=== PATIENT | female | born 1955 | race Caucasian/White ===

== ENCOUNTER 2018-12-03 15:14 | Inpatient (IN) | payer MEDICAID ==
[~2018-12-03] VITALS: Ht 170.2 cm; Wt 72.3 kg
[~2018-12-03 15:14] MED LIST: ALBU18HF2 IH; LORA10TA7 PO; METF500T PO
[2018-12-03 15:41] LABS: BASOPHILS # (AUTO) 0.1 X10'3 (0-0.2); BASOPHILS % (AUTO) 0.4 % (0-1); EOSINOPHILS # (AUTO) 0.1 X10'3 (0-0.9); EOSINOPHILS % (AUTO) 0.6 % (0-6); HEMATOCRIT 31.6 % (35.0-45.0); HEMOGLOBIN 10.7 g/dl (12.0-16.0); LYMPHOCYTES # (AUTO) 1.8 X10'3 (1.1-4.8); LYMPHOCYTES % (AUTO) 8.8 % (21-51); MEAN CORPUSCULAR HEMOGLOBIN 28.6 PG (27.0-31.0); MEAN CORPUSCULAR HGB CONC 33.8 g/dL (33.0-36.5); MEAN CORPUSCULAR VOLUME 84.4 FL (78-98); MEAN PLATELET VOLUME 6.9 FL (7.4-10.4); MONOCYTES # (AUTO) 1.5 X10'3 (0-0.9); MONOCYTES % (AUTO) 7.7 % (2-12); NEUTROPHILS # (AUTO) 16.6 X10'3 (1.8-7.7); NEUTROPHILS % (AUTO) 82.5 % (42-75); PLATELET COUNT 548 X10'3 (140-440); RED BLOOD COUNT 3.75 X10'6 (4.20-5.60); RED CELL DISTRIBUTION WIDTH 14.4 % (11.5-14.5); WHITE BLOOD COUNT 20.1 X10'3 (4.5-11.0)
[2018-12-03] MEDS ORDERED: piperacillin/tazo 3.375gm/50ml 50 ML IV ONE (15:45)
[2018-12-03] MEDS ORDERED: vancomycin/NS 1 GM ADD-VANTAGE 250 ML IV ONE ×2 (15:45→16:45)
[2018-12-03] MEDS ORDERED: ATOR20TA PO (15:49)
[2018-12-03] MEDS ORDERED: LISI40TA4 PO (15:49)
[2018-12-03] MEDS ORDERED: AMLO-94 PO (15:49)
[2018-12-03] MEDS ORDERED: INSU100I31 SQ (15:49)
[2018-12-03] MEDS ORDERED: POTA20PA40 PO (15:49)
[2018-12-03 16:03] LABS: PARTIAL THROMBOPLASTIN TIME 36 SECONDS (22-32)
[2018-12-03 16:07] LABS: ALANINE AMINOTRANSFERASE 9 U/L (12-78); ALBUMIN 1.1 G/DL (3.4-5.0); ALBUMIN/GLOBULIN RATIO 0.2 (1.1-1.5); ALKALINE PHOSPHATASE 135 IU/L (46-116); ANION GAP 14 (8-16); ASPARTATE AMINO TRANSFERASE 10 U/L (10-37); BILIRUBIN,TOTAL 0.2 MG/DL (0.1-1.0); BLOOD UREA NITROGEN 48 MG/DL (7-18); BUN/CREATININE RATIO 11.2 (6.6-38.0); CALCIUM 7.9 MG/DL (8.5-10.1); CHLORIDE 102 MMOL/L (99-107); CREATININE 4.29 MG/DL (0.40-0.90); GLUCOSE 444 MG/DL (70-104); SODIUM 135 MMOL/L (135-145); TOTAL CARBON DIOXIDE 18.9 MMOL/L (24-32); TOTAL PROTEIN 6.1 G/DL (6.4-8.2); eGFR 10 ML/MIN
[2018-12-03 16:12] LABS: POTASSIUM 1.8 MMOL/L (3.5-5.1)
[2018-12-03] MEDS ORDERED: potassium Cl 20 mEq SR tablet PO ONE (16:15)
[2018-12-03] MEDS ORDERED: potassium 10mEq/100ml NS w/LIDOcaine (10mg/bag) IV SCH (16:15)
[2018-12-03] MEDS ORDERED: magnesium 2GM in 50ml NS 50 ML IV ONE (16:15)
--- NOTE | 2018-12-03 16:26 | NUR ---
PT OUT TO CT VIA WHEELCHAIR WITH ANVILSMITH
--- NOTE | 2018-12-03 16:42 | NUR ---
BACK IN THE ROOM FROM CT.
[2018-12-03] MEDS ORDERED: vancomycin/NS 1 GM ADD-VANTAGE 250 ML IV PRN (16:45)
[2018-12-03] MEDS ORDERED: potassium bicarbonate/cit acid 25mEq tablet.effervescent PO SCH (16:45)
[2018-12-03] MEDS ORDERED: potassium Cl 20 mEq SR tablet PO PRN (16:45)
[2018-12-03] MEDS ORDERED: morphine 4 MG/ML inj SYRINge IV PRN ×2 (16:45→17:30)
[2018-12-03] MEDS ORDERED: morphine 2 MG/ML inj. syringe IV PRN ×2 (16:45→17:30)
[2018-12-03] MEDS ORDERED: potassium CL 10mEq/100ml bag 100 ML IV PRN (16:45)
[2018-12-03] MEDS ORDERED: acetaminophen 325mg tablet PO PRN ×4 (16:45→17:30)
[2018-12-03] MEDS: potassium Cl 10 mEq/100mL bag IV SCH ×2 (16:46→17:35)
[2018-12-03] MEDS ORDERED: LIDOcaine 1% w/epiNEPHrine 1:200,000 30ml vial IM ONE (16:55)
[2018-12-03] MEDS ORDERED: AMLO10TA2 PO (16:58)
[2018-12-03] MEDS: normal saline 1000ml 1,000 ML IV SCH ×2 (17:02→23:18)
[2018-12-03 17:08] LABS: MAGNESIUM 1.6 MG/DL (1.5-2.4)
[2018-12-03] MEDS ORDERED: MYC15CR TOP (17:20)
[2018-12-03] MEDS ORDERED: BECL10.62 IH (17:20)
[2018-12-03] MEDS ORDERED: fentaNYL/PF 50MCG/1 ML 2ML syringe ONE (17:29)
[2018-12-03] MEDS ORDERED: magnesium hydroxide 30ml (MOM) UD suspension PO PRN (17:30)
[2018-12-03] MEDS ORDERED: ondansetron/PF 4mg/2ml inj IV PRN (17:30)
--- NOTE | 2018-12-03 17:30 | NUR ---
BOTH GROIN DRAINING PUS,SUCTIONED NEEDED,DR. CARLOS AT BEDSIDE TO DO I AND D WITH PACKING.PICTURE TAKEN,CULTURE OBTAINED.
--- NOTE | 2018-12-03 17:31 | NUR ---
FENTANYL 50MCG GIVEN PER V.O BY DR. DAUGHERTY.
[2018-12-03] MEDS ORDERED: fentaNYL/PF 50MCG/1 ML 2ML syringe IV STA (17:44)
--- NOTE | 2018-12-03 17:53 | NUR ---
DR. VILLAGRAN AT BEDSIDE.
[2018-12-03] MEDS ORDERED: vancomycin/NS 500MG ADD-VANT 100 ML IV ONE (18:05)
[2018-12-03] MEDS ORDERED: MESSAGE TO PHARMACY PO ONE (18:20)
[2018-12-03] MEDS ORDERED: dextrose ORAL solution 15 GM/59 ML bottle PO PRN ×2 (18:20)
[2018-12-03] MEDS ORDERED: dextrose 50%-water 50ml dispensing syringe IV PRN ×2 (18:20)
[2018-12-03] MEDS ORDERED: glucagon, human recombinant 1mg kit SUBCUT PRN (18:20)
--- NOTE | 2018-12-03 18:45 | NUR ---
Patient in room . I have received report from Brenda FABIAN IN EMERGENCY ROOM and had the opportunity to ask questions. Awaiting pt arrival to ICU room 2012. Addendum: 12/03/18 at 2340 by Rosemarie Raman RN Report received from emergency room RN, patient not yet in ICU.
--- NOTE | 2018-12-03 18:47 | NUR ---
STRAIGHT CATH PATIENT FOR UA.
--- NOTE | 2018-12-03 18:50 | NUR ---
Patient arrived to ICU room 2012. Awake alert & oriented. Denies pain at this time. Pt transferred to hospital bed & placed on monitoring analyst. Right groin is reddened, hard & tender weeping thick pink fluid through packing. Left groin area is tender & edematous. Peripheral IV to left AC is patent NS infusing at 150ml/hr.Right AC with saline lock.
[2018-12-03 19:02] LABS: UA COLLECTION TYPE STRAIGHT CATH
[2018-12-03 19:03] LABS: CLARITY,URINE SLIGHTLY CLOUDY (Clear); COLOR,URINE YELLOW (Yellow); GLUCOSE, URINE 500 mg/dl (Neg); KETONES,URINE NEGATIVE (Neg); LEUKOCYTE ESTERASE ,URINE NEGATIVE (Neg); NITRITES, URINE NEGATIVE (Neg); OCCULT BLOOD,URINE MODERATE (Neg); PROTEIN,URINE 100 mg/dl (Neg); UROBILINOGEN,URINE 0.2 E.U/dL (0.2-1.0)
[2018-12-03 19:09] LABS: AMORPHOUS URATES 3+; BACTERIA,URINE NONE SEEN /HPF (Neg); MUCUS STRANDS NONE SEEN /LPF (Neg); RBC,URINE NONE SEEN /HPF (0-2); SQUAMOUS EPITHELIAL CELL,UR MANY /LPF (FEW)
[2018-12-03 19:50] LABS: UA EOSINOPHILS NO EOS /HPF
[2018-12-03 19:52] VITALS: BP 168/88
[2018-12-03 20:00] VITALS: BP 164/79
[2018-12-03] MEDS ORDERED: non-formulary drug (Albuterol Sulfate (Ventolin Hfa) 2 PUFFS) IH SCH (20:00)
[2018-12-03] MEDS ORDERED: non-formulary drug (Beclomethasone Dipropionate (Qvar Redihaler) 2 PUFFS) IH SCH (20:00)
[2018-12-03] MEDS: budesonide 0.5mg/2ml UD nebule IH SCH (20:31)
[2018-12-03] MEDS: potassium Cl 20 mEq SR tablet PO SCH (20:52)
[2018-12-03] MEDS: sennosides/docusate sodium tablet PO SCH (20:52)
[2018-12-03] MEDS: docusate sod 100mg capsule PO SCH (20:52)
[2018-12-03 21:00] VITALS: BP 176/81
[2018-12-03] MEDS: insulin glargine (Lantus) pen - multi-dose SQ SCH ×2 (21:00→23:06)
--- NOTE | 2018-12-03 21:04 | NUR ---
Dr. Meyers @bedside with pt.
[2018-12-03] MEDS: atorvastatin 20mg tablet PO SCH (21:08)
[2018-12-03 22:00] VITALS: BP 162/76
[2018-12-03 23:00] VITALS: BP 162/72
[2018-12-03] MEDS: insulin Lispro (HumaLOG) vial - multi-dose SQ SCH (23:09)
[2018-12-03] MEDS: potassium bicarbonate/cit acid 25mEq tablet.effervescent PO SCH (23:51)
[2018-12-03 23:56] LABS: POTASSIUM 2.6 MMOL/L (3.5-5.1)
[2018-12-04] VITALS (23 sets, daily range): BP systolic 132–170; BP diastolic 56–100
--- NOTE | 2018-12-04 00:15 | NUR ---
K+ 2.6 results called to Riley Simon.
--- NOTE | 2018-12-04 00:15 | NUR ---
Rangel cath placed. Return is clear yellow urine. Pt tolerated procedure well.
[2018-12-04] MEDS: piperacillin/tazo 3.375gm/50ml 50 ML IV SCH ×2 (01:52→08:15)
[2018-12-04] MEDS: potassium CL 10mEq/100ml bag 100 ML IV PRN ×5 (02:00→06:31)
[2018-12-04 04:56] LABS: BASOPHILS # (AUTO) 0.1 X10'3 (0-0.2); BASOPHILS % (AUTO) 0.4 % (0-1); EOSINOPHILS # (AUTO) 0.3 X10'3 (0-0.9); EOSINOPHILS % (AUTO) 1.8 % (0-6); HEMATOCRIT 32.3 % (35.0-45.0); LYMPHOCYTES % (AUTO) 11.2 % (21-51); MEAN CORPUSCULAR HEMOGLOBIN 28.2 PG (27.0-31.0); MEAN PLATELET VOLUME 6.7 FL (7.4-10.4); MONOCYTES # (AUTO) 1.6 X10'3 (0-0.9); MONOCYTES % (AUTO) 8.7 % (2-12); NEUTROPHILS # (AUTO) 13.9 X10'3 (1.8-7.7); NEUTROPHILS % (AUTO) 77.9 % (42-75); PLATELET COUNT 541 X10'3 (140-440); WHITE BLOOD COUNT 17.9 X10'3 (4.5-11.0)
[2018-12-04 05:37] LABS: ALANINE AMINOTRANSFERASE 13 U/L (12-78); ALBUMIN 1.2 G/DL (3.4-5.0); ALBUMIN/GLOBULIN RATIO 0.2 (1.1-1.5); ALKALINE PHOSPHATASE 136 IU/L (46-116); ANION GAP 14 (8-16); ASPARTATE AMINO TRANSFERASE 15 U/L (10-37); BILIRUBIN,TOTAL 0.3 MG/DL (0.1-1.0); BLOOD UREA NITROGEN 42 MG/DL (7-18); CALCIUM 8.1 MG/DL (8.5-10.1); CHLORIDE 110 MMOL/L (99-107); CREATININE 3.82 MG/DL (0.40-0.90); GLUCOSE 219 MG/DL (70-104); PHOSPHORUS 2.9 MG/DL (2.3-4.5); SODIUM 142 MMOL/L (135-145); TOTAL CARBON DIOXIDE 18.2 MMOL/L (24-32); TOTAL PROTEIN 6.3 G/DL (6.4-8.2); TROPONIN I < 0.04 NG/ML (0.0-0.05); VANCOMYCIN,RANDOM 13.8 UG/ML; eGFR 12 ML/MIN
[2018-12-04 05:54] LABS: POTASSIUM 2.4 MMOL/L (3.5-5.1)
--- NOTE | 2018-12-04 06:00 | NUR ---
K riders continue to infuse. Rhythm remains sinus without ectopy.Pt awake most of the night. No complaints of pain throughout the shift.
--- NOTE | 2018-12-04 06:40 | NUR ---
Problems reprioritized. Patient report given, questions answered & plan of care reviewed with Fadi FABIAN.
[2018-12-04] MEDS ORDERED: potassium Cl 40MEQ/NS 500ml 500 ML IV ONE (07:10)
[2018-12-04] MEDS ORDERED: non-formulary drug (Lisinopril* 1 TAB) PO SCH (08:00)
[2018-12-04] MEDS ORDERED: non-formulary drug (Amlodipine Besylate 1 TAB) PO SCH (08:00)
--- NOTE | 2018-12-04 08:00 | NUR ---
Patient in room CICU 2013. I have received report from Rosemarie FABIAN and had the opportunity to ask questions and assume patient care.
--- NOTE | 2018-12-04 08:00 | NUR ---
Valentin catheter found out of urethra in bed, no balloon inflated. New 16FR valentin catheter placed.
[2018-12-04] MEDS: potassium Cl 40MEQ/NS 500ml 500 ML IV ONE ×2 (08:03→13:44)
[2018-12-04] MEDS: lisinopril 20mg tablet PO SCH (08:14)
[2018-12-04] MEDS: amLODIPine 5mg tablet PO SCH (08:14)
[2018-12-04] MEDS: loratadine 10mg tablet PO SCH (08:14)
[2018-12-04] MEDS: normal saline 1000ml 1,000 ML IV SCH ×4 (08:14→23:53)
[2018-12-04] MEDS: docusate sod 100mg capsule PO SCH ×2 (08:15→20:28)
[2018-12-04] MEDS: potassium bicarbonate/cit acid 25mEq tablet.effervescent PO SCH ×3 (08:15→23:53)
[2018-12-04] MEDS: VANCOMYCIN LEVEL IV SCH (08:16)
[2018-12-04] MEDS: budesonide 0.5mg/2ml UD nebule IH SCH ×2 (08:29→20:53)
[2018-12-04] MEDS: ondansetron/PF 4mg/2ml inj IV PRN (11:20)
[2018-12-04] MEDS: CefTRIAXone 2gm/D5W 50ml 50 ML IV SCH (12:50)
--- NOTE | 2018-12-04 14:12 | NUR ---
Unable to get labs drawn by RN or wind tunnel technician. Dr. Davies called and PICC ordered. PICC line nurse unable to place PICC at this time but labs were drawn for K+ level. Pt crying in pain as she is itching and burning underneath her breast. Unable to get a hold of Dr. Davies at this time.
[2018-12-04] MEDS: nystatin 15 GM powder TP SCH ×2 (15:44→21:37)
[2018-12-04] MEDS: metroNIDAZOLE-Flagyl 500mg/NS 100 ML IV SCH ×2 (15:50→23:52)
--- NOTE | 2018-12-04 16:52 | NUR ---
Pt just tranported to the OR for I&D right groin.
[2018-12-04] MEDS ORDERED: sevoflurane 250ml liquid IH ONE (16:53)
[2018-12-04] MEDS ORDERED: midazolam 2 mg/2 ml injection ONE (16:55)
[2018-12-04] MEDS ORDERED: fentaNYL/PF 50MCG/1 ML 2ML syringe ONE ×2 (16:55→17:22)
[2018-12-04] MEDS ORDERED: propofol inj 20 ML IV ONE (17:09)
[2018-12-04] MEDS ORDERED: rocuronium 10mg/ml inj IV ONE (17:09)
[2018-12-04] MEDS ORDERED: LIDOcaine 2% (20mg/ml) 5ml vial ONE (17:09)
--- NOTE | 2018-12-04 17:12 | NUR ---
DM consult, patient has A1c of 9.1, met at bedside and given written DM education handout with verbal review and referral to outpatient DM education class on Sunday morning, patient reports she has had her A1c in the 11s and 12s and has been working with primary care provider to adjust night time long acting insulin. Patient does not have any questions at this time. Is NPO but reports a usual good appetite. Admitted with sepsis and abscess to groin, pending surgical drainage, hypokalemic and receiving replacement. Will continue to follow. Recommend: 1. advance diet as medically indicated to carb controlled 2. wt per rx Addendum: 12/04/18 at [address]án[address] Amended: Links added.
[2018-12-04] MEDS ORDERED: neostigmine methylsulfate 1 MG/ML 10ml vial ONE (17:49)
[2018-12-04] MEDS ORDERED: ondansetron/PF 4mg/2ml inj ONE (17:49)
[2018-12-04] MEDS ORDERED: phenylephrine 10mg/ml inj. ONE (17:49)
[2018-12-04] MEDS ORDERED: glycopyrrolate 0.2mg/ml inj ONE (17:49)
--- NOTE | 2018-12-04 18:01 | NUR ---
Report from Nakita FABIAN OR. Pt surgery is complete. Pt is to be extubated and then brought back to room. I&D right groin, wet to dry dressing.
--- NOTE | 2018-12-04 18:34 | NUR ---
Problems reprioritized. Patient report given, questions answered & plan of care reviewed with Enmanuel FABIAN.
--- NOTE | 2018-12-04 18:42 | NUR ---
recieved report from randi FABIAN no questions or concerns after SBAR
[2018-12-04] MEDS: lactobacillus rhamnosus 10,000 MMU CELLS/CAPSULE PO SCH (20:28)
[2018-12-04] MEDS: insulin glargine (Lantus) pen - multi-dose SQ SCH ×2 (20:38→21:00)
[2018-12-04] MEDS: insulin Lispro (HumaLOG) vial - multi-dose SQ SCH (20:39)
--- NOTE | 2018-12-04 20:39 | NUR ---
patients hs blood glucose 214, patient npo from surgery will not administer lantus patient is a level 3 type 2 dm, patient nightime insulin adjustment tool states to administer 0 units for current bg
[2018-12-04] MEDS: sennosides/docusate sodium tablet PO SCH (21:37)
[2018-12-04] MEDS: atorvastatin 20mg tablet PO SCH (21:37)
--- NOTE | 2018-12-04 23:22 | NUR ---
patient in bed eyes closed rr even un labored no observable s/s of acute stress at this time
[2018-12-05] VITALS (19 sets, daily range): BP systolic 118–158; BP diastolic 44–84
--- NOTE | 2018-12-05 02:00 | NUR ---
PATIENT IN BED EYES CLOSED RR EVEN UN LABORED NO OBSERVABLE S/S OF ACUTE STRESS AT THIS TIME WILL CONTINUE TO MONITOR
[2018-12-05] MEDS: VANCOMYCIN LEVEL IV SCH (03:00)
[2018-12-05 03:30] LABS: BASOPHILS # (AUTO) 0.1 X10'3 (0-0.2); BASOPHILS % (AUTO) 0.6 % (0-1); EOSINOPHILS # (AUTO) 0.2 X10'3 (0-0.9); EOSINOPHILS % (AUTO) 1.5 % (0-6); HEMOGLOBIN 9.7 g/dl (12.0-16.0); LYMPHOCYTES # (AUTO) 2.3 X10'3 (1.1-4.8); LYMPHOCYTES % (AUTO) 17.9 % (21-51); MEAN CORPUSCULAR HEMOGLOBIN 28.8 PG (27.0-31.0); MEAN CORPUSCULAR HGB CONC 33.5 g/dL (33.0-36.5); MEAN CORPUSCULAR VOLUME 85.9 FL (78-98); MEAN PLATELET VOLUME 6.6 FL (7.4-10.4); MONOCYTES # (AUTO) 0.8 X10'3 (0-0.9); MONOCYTES % (AUTO) 6.7 % (2-12); NEUTROPHILS # (AUTO) 9.2 X10'3 (1.8-7.7); NEUTROPHILS % (AUTO) 73.3 % (42-75); PLATELET COUNT 445 X10'3 (140-440); RED BLOOD COUNT 3.37 X10'6 (4.20-5.60); RED CELL DISTRIBUTION WIDTH 14.5 % (11.5-14.5); WHITE BLOOD COUNT 12.6 X10'3 (4.5-11.0)
[2018-12-05 03:55] LABS: ALANINE AMINOTRANSFERASE 11 U/L (12-78); ALBUMIN 1.1 G/DL (3.4-5.0); ALBUMIN/GLOBULIN RATIO 0.3 (1.1-1.5); ALKALINE PHOSPHATASE 108 IU/L (46-116); ANION GAP 11 (8-16); ASPARTATE AMINO TRANSFERASE 15 U/L (10-37); BILIRUBIN,TOTAL 0.1 MG/DL (0.1-1.0); BLOOD UREA NITROGEN 30 MG/DL (7-18); BUN/CREATININE RATIO 10.7 (6.6-38.0); CALCIUM 7.4 MG/DL (8.5-10.1); CHLORIDE 117 MMOL/L (99-107); CREATININE 2.81 MG/DL (0.40-0.90); GLUCOSE 153 MG/DL (70-104); MAGNESIUM 1.5 MG/DL (1.5-2.4); PHOSPHORUS 3.7 MG/DL (2.3-4.5); SODIUM 147 MMOL/L (135-145); TOTAL CARBON DIOXIDE 18.6 MMOL/L (24-32); TOTAL PROTEIN 5.4 G/DL (6.4-8.2); VANCOMYCIN,RANDOM 7.8 UG/ML; eGFR 17 ML/MIN
[2018-12-05 04:00] LABS: POTASSIUM 2.6 MMOL/L (3.5-5.1)
--- NOTE | 2018-12-05 04:00 | NUR ---
PATIENT DENIES PAIN IN BED COVERS ON RR EVEN UN LABORED NO S/S OF ACUTE STRESS AT THIS TIME
[2018-12-05] MEDS: potassium CL 10mEq/100ml bag 100 ML IV PRN ×4 (04:10→14:36)
[2018-12-05] MEDS ORDERED: vancomycin/NS 1 GM ADD-VANTAGE 250 ML IV ONE (05:50)
--- NOTE | 2018-12-05 06:22 | NUR ---
SBAR TO MAGGIE FABIAN NO QUESTIONS OR CONCERNS AFTER SBAR
[2018-12-05] MEDS: metroNIDAZOLE-Flagyl 500mg/NS 100 ML IV SCH ×3 (07:36→23:46)
[2018-12-05] MEDS: CefTRIAXone 2gm/D5W 50ml 50 ML IV SCH (07:36)
[2018-12-05] MEDS: lactobacillus rhamnosus 10,000 MMU CELLS/CAPSULE PO SCH ×2 (07:36→19:37)
[2018-12-05] MEDS: potassium Cl 20 mEq SR tablet PO SCH (07:36)
[2018-12-05] MEDS: amLODIPine 5mg tablet PO SCH (07:36)
[2018-12-05] MEDS: potassium bicarbonate/cit acid 25mEq tablet.effervescent PO SCH ×3 (07:37→23:51)
[2018-12-05] MEDS: docusate sod 100mg capsule PO SCH ×2 (07:37→19:37)
[2018-12-05] MEDS: loratadine 10mg tablet PO SCH (07:37)
[2018-12-05] MEDS: lisinopril 20mg tablet PO SCH (07:37)
[2018-12-05] MEDS: normal saline 1000ml 1,000 ML IV SCH ×3 (07:38→23:45)
[2018-12-05] MEDS: nystatin 15 GM powder TP SCH ×3 (07:38→21:20)
[2018-12-05] MEDS: HYDROmorphone 1 mg/ml syringe IV PRN ×2 (08:36→14:37)
[2018-12-05] MEDS: budesonide 0.5mg/2ml UD nebule IH SCH ×2 (09:15→19:51)
--- NOTE | 2018-12-05 10:40 | NUR ---
PICC line placed per Dr. Davies and reviewed during rounds, Dr. Davies is aware of the line being placed and was handed the consent form to sign but he stated " Not right now". Form is filled about from everyone else.
[2018-12-05 13:55] LABS: CHLORIDE 116 MMOL/L (99-107); GLUCOSE 172 MG/DL (70-104); SODIUM 145 MMOL/L (135-145)
[2018-12-05 13:56] LABS: ALANINE AMINOTRANSFERASE 13 U/L (12-78); ALBUMIN/GLOBULIN RATIO 0.2 (1.1-1.5); ALKALINE PHOSPHATASE 116 IU/L (46-116); ANION GAP 8 (8-16); ASPARTATE AMINO TRANSFERASE 17 U/L (10-37); BILIRUBIN,TOTAL 0.1 MG/DL (0.1-1.0); BLOOD UREA NITROGEN 26 MG/DL (7-18); BUN/CREATININE RATIO 10.1 (6.6-38.0); CREATININE 2.58 MG/DL (0.40-0.90); TOTAL PROTEIN 5.2 G/DL (6.4-8.2); eGFR 19 ML/MIN
[2018-12-05 13:58] LABS: POTASSIUM 2.5 MMOL/L (3.5-5.1)
[2018-12-05] MEDS ORDERED: potassium CL 10mEq/100ml bag 100 ML IV PRN (14:30)
[2018-12-05] MEDS ORDERED: potassium Cl 20 mEq SR tablet PO PRN ×2 (14:30)
[2018-12-05] MEDS ORDERED: magnesium 4gm in 100ml NS 100 ML IV PRN (14:30)
[2018-12-05] MEDS ORDERED: potassium Cl 20mEq/100mL bag 100 ML IV PRN (14:30)
[2018-12-05] MEDS ORDERED: magnesium 2GM in 50ml NS 50 ML IV PRN (14:30)
--- NOTE | 2018-12-05 16:30 | NUR ---
Received report from ICU nurse Kalpana FABIAN. Awaiting arrival to room 360A.
[2018-12-05] MEDS: insulin Lispro (HumaLOG) vial - multi-dose SQ SCH (16:40)
--- NOTE | 2018-12-05 17:17 | NUR ---
Problems reprioritized. Patient report given, questions answered & plan of care reviewed with Tello FABIAN AND [facility] AND ON TELE.
--- NOTE | 2018-12-05 18:21 | NUR ---
Patient given Humalog late at 1640 for eating lunch late, but pt to be accuchecked at 1700. Pt has not received any Humalog per hyperglycemic protocol for breakfast blood sugar and nurse stated pt is on level 3 but stated she did not feel the need to cover AM blood sugar because they were NPO. Protocol not being followed as ordered. Unclear now how to cover patient because Humalog was given so late and so close to 1700 accucheck. Unclear orders for wound dressing change, in report nurse stated to change dressing tomorrow, dressing order does not indicate when to start the first dressing change. Potassium replacement not following per protocol as ordered. Nurse added additional orders for replacement but it is unclear to know where to start on protocol replacement upon transfer. Charge nurse notified. Charge nurse stated to restart hyperglycemic protocol and to have pt remeet protocol since Humalog given so late and so close to 1700 accucheck. Also stated to recheck K after IV has finished and will restart protocol with new lab level.
--- NOTE | 2018-12-05 18:26 | NUR ---
Problems reprioritized. Patient report given, questions answered & plan of care reviewed with Cassi FABIAN.
--- NOTE | 2018-12-05 18:30 | NUR ---
Patient in room [facility] 360. I have received report from RUI Barroso and had the opportunity to ask questions and assume patient care. Addendum: 12/05/18 at 1919 by Akilah Bran RN Amended: Links added.
[2018-12-05] MEDS: sennosides/docusate sodium tablet PO SCH (19:37)
[2018-12-05] MEDS: atorvastatin 20mg tablet PO SCH (19:37)
[2018-12-05] MEDS: insulin glargine (Lantus) pen - multi-dose SQ SCH ×2 (21:00→21:21)
--- NOTE | 2018-12-05 21:00 | NUR ---
pt had complete bed bath, kemal care. sat up in chair briefly. anjali well. Addendum: 12/06/18 at 0141 by Akilah Bran RN Amended: Links added.
[2018-12-05] MEDS: HYDROcodone/acetaminophen 10/325mg tab PO PRN (22:24)
[2018-12-06 00:36] VITALS: BP 134/74
[2018-12-06] MEDS: VANCOMYCIN LEVEL IV SCH (03:00)
[2018-12-06] MEDS: Dakins solution (1/4 strength) 473ml solution TP SCH ×2 (04:51→21:02)
[2018-12-06 05:16] LABS: BASOPHILS # (AUTO) 0.1 X10'3 (0-0.2); BASOPHILS % (AUTO) 0.7 % (0-1); EOSINOPHILS # (AUTO) 0.4 X10'3 (0-0.9); EOSINOPHILS % (AUTO) 2.9 % (0-6); HEMOGLOBIN 9.1 g/dl (12.0-16.0); LYMPHOCYTES # (AUTO) 2.6 X10'3 (1.1-4.8); LYMPHOCYTES % (AUTO) 18.9 % (21-51); MEAN CORPUSCULAR HEMOGLOBIN 29.3 PG (27.0-31.0); MEAN CORPUSCULAR HGB CONC 33.6 g/dL (33.0-36.5); MEAN CORPUSCULAR VOLUME 87.3 FL (78-98); MEAN PLATELET VOLUME 6.6 FL (7.4-10.4); MONOCYTES # (AUTO) 1.1 X10'3 (0-0.9); NEUTROPHILS # (AUTO) 9.7 X10'3 (1.8-7.7); NEUTROPHILS % (AUTO) 69.5 % (42-75); PLATELET COUNT 404 X10'3 (140-440); RED CELL DISTRIBUTION WIDTH 14.7 % (11.5-14.5)
[2018-12-06 05:21] LABS: ALANINE AMINOTRANSFERASE 10 U/L (12-78); ALBUMIN/GLOBULIN RATIO 0.2 (1.1-1.5); ALKALINE PHOSPHATASE 114 IU/L (46-116); ANION GAP 8 (8-16); ASPARTATE AMINO TRANSFERASE 12 U/L (10-37); BILIRUBIN,TOTAL 0.1 MG/DL (0.1-1.0); BLOOD UREA NITROGEN 25 MG/DL (7-18); BUN/CREATININE RATIO 8.5 (6.6-38.0); CALCIUM 7.2 MG/DL (8.5-10.1); CHLORIDE 114 MMOL/L (99-107); CREATININE 2.94 MG/DL (0.40-0.90); GLUCOSE 187 MG/DL (70-104); MAGNESIUM 1.2 MG/DL (1.5-2.4); PHOSPHORUS 3.2 MG/DL (2.3-4.5); SODIUM 143 MMOL/L (135-145); TOTAL CARBON DIOXIDE 21.3 MMOL/L (24-32); TOTAL PROTEIN 5.1 G/DL (6.4-8.2); VANCOMYCIN,RANDOM 11.9 UG/ML; eGFR 16 ML/MIN
[2018-12-06] MEDS: potassium Cl 20 mEq SR tablet PO PRN ×3 (05:43→21:29)
--- NOTE | 2018-12-06 06:35 | NUR ---
Problems reprioritized. Patient report given, questions answered & plan of care reviewed with RUI KOVACS. Addendum: 12/06/18 at 0635 by Akilah Bran RN Amended: Links added.
[2018-12-06] MEDS: lactobacillus rhamnosus 10,000 MMU CELLS/CAPSULE PO SCH ×2 (07:10→21:01)
[2018-12-06] MEDS: amLODIPine 5mg tablet PO SCH (07:10)
[2018-12-06] MEDS: CefTRIAXone 2gm/D5W 50ml 50 ML IV SCH (07:11)
[2018-12-06] MEDS: lisinopril 20mg tablet PO SCH (07:11)
[2018-12-06] MEDS: nystatin 15 GM powder TP SCH ×3 (07:11→21:01)
[2018-12-06] MEDS: potassium bicarbonate/cit acid 25mEq tablet.effervescent PO SCH ×2 (07:11→16:28)
[2018-12-06] MEDS: loratadine 10mg tablet PO SCH (07:13)
[2018-12-06] MEDS: magnesium Cl slow-release 64mg tablet PO PRN ×2 (07:14→21:25)
[2018-12-06 07:18] VITALS: BP 140/63
[2018-12-06] MEDS ORDERED: vancomycin/NS 1 GM ADD-VANTAGE 250 ML IV ONE (08:00)
[2018-12-06] MEDS: K and/or MAG REPLACEMENT MC SCH (08:00)
[2018-12-06] MEDS: docusate sod 100mg capsule PO SCH ×2 (08:00→21:01)
[2018-12-06] MEDS: insulin Lispro (HumaLOG) vial - multi-dose SQ SCH ×3 (08:18→19:28)
[2018-12-06] MEDS: metroNIDAZOLE-Flagyl 500mg/NS 100 ML IV SCH ×3 (08:18→23:47)
[2018-12-06] MEDS: budesonide 0.5mg/2ml UD nebule IH SCH ×2 (09:29→19:57)
[2018-12-06 11:55] VITALS: BP 91/58
[2018-12-06 12:47] VITALS: BP 163/77
[2018-12-06] MEDS: ondansetron/PF 4mg/2ml inj IV PRN (13:34)
[2018-12-06] MEDS: HYDROcodone/acetaminophen 10/325mg tab PO PRN ×2 (14:09→17:57)
[2018-12-06 18:00] VITALS: BP 145/64
--- NOTE | 2018-12-06 18:21 | NUR ---
Problems reprioritized. Patient report given, questions answered & plan of care reviewed with Jennyfer Parikh RN.
--- NOTE | 2018-12-06 18:22 | NUR ---
Patient in room [facility] 360. I have received report from RUI Leigh and had the opportunity to ask questions and assume patient care. Addendum: 12/06/18 at 1822 by Nathalie Mosqueda RN Amended: Links added.
[2018-12-06] MEDS: atorvastatin 20mg tablet PO SCH (21:00)
[2018-12-06] MEDS: insulin glargine (Lantus) pen - multi-dose SQ SCH ×2 (21:00→21:38)
[2018-12-06] MEDS: sennosides/docusate sodium tablet PO SCH (21:00)
[2018-12-06] MEDS: ceFAZolin 1GM/D5W- ADD-VANTAGE 50 ML IV SCH (21:01)
[2018-12-06] MEDS: normal saline 1000ml 1,000 ML IV SCH (23:55)
[2018-12-07] VITALS: BP 154/73
[2018-12-07] MEDS: potassium bicarbonate/cit acid 25mEq tablet.effervescent PO SCH ×3 (00:37→16:44)
[2018-12-07 02:41] LABS: BASOPHILS # (AUTO) 0.1 X10'3 (0-0.2); BASOPHILS % (AUTO) 0.5 % (0-1); EOSINOPHILS # (AUTO) 0.4 X10'3 (0-0.9); EOSINOPHILS % (AUTO) 3.1 % (0-6); HEMATOCRIT 28.2 % (35.0-45.0); HEMOGLOBIN 9.1 g/dl (12.0-16.0); LYMPHOCYTES # (AUTO) 2.7 X10'3 (1.1-4.8); LYMPHOCYTES % (AUTO) 18.8 % (21-51); MEAN CORPUSCULAR HEMOGLOBIN 28.3 PG (27.0-31.0); MEAN CORPUSCULAR HGB CONC 32.4 g/dL (33.0-36.5); MEAN CORPUSCULAR VOLUME 87.4 FL (78-98); MEAN PLATELET VOLUME 6.3 FL (7.4-10.4); MONOCYTES # (AUTO) 1.2 X10'3 (0-0.9); MONOCYTES % (AUTO) 8.3 % (2-12); NEUTROPHILS # (AUTO) 9.9 X10'3 (1.8-7.7); NEUTROPHILS % (AUTO) 69.3 % (42-75); PLATELET COUNT 395 X10'3 (140-440); RED BLOOD COUNT 3.22 X10'6 (4.20-5.60); RED CELL DISTRIBUTION WIDTH 14.6 % (11.5-14.5); WHITE BLOOD COUNT 14.3 X10'3 (4.5-11.0)
[2018-12-07 02:52] LABS: ALANINE AMINOTRANSFERASE 9 U/L (12-78); ALBUMIN 1.1 G/DL (3.4-5.0); ALBUMIN/GLOBULIN RATIO 0.3 (1.1-1.5); ALKALINE PHOSPHATASE 106 IU/L (46-116); ANION GAP 12 (8-16); ASPARTATE AMINO TRANSFERASE 11 U/L (10-37); BILIRUBIN,TOTAL 0.1 MG/DL (0.1-1.0); BLOOD UREA NITROGEN 23 MG/DL (7-18); BUN/CREATININE RATIO 7.8 (6.6-38.0); CALCIUM 7.1 MG/DL (8.5-10.1); CHLORIDE 113 MMOL/L (99-107); CREATININE 2.95 MG/DL (0.40-0.90); GLUCOSE 153 MG/DL (70-104); MAGNESIUM 1.1 MG/DL (1.5-2.4); PHOSPHORUS 3.1 MG/DL (2.3-4.5); POTASSIUM 3.6 MMOL/L (3.5-5.1); SODIUM 144 MMOL/L (135-145); TOTAL CARBON DIOXIDE 19.5 MMOL/L (24-32); VANCOMYCIN,RANDOM 18.8 UG/ML; eGFR 16 ML/MIN
[2018-12-07] MEDS: VANCOMYCIN LEVEL IV SCH (03:00)
[2018-12-07] MEDS: magnesium Cl slow-release 64mg tablet PO PRN ×2 (05:59→20:18)
[2018-12-07 06:43] LABS: ANISOCYTOSIS 1+; LARGE PLATELETS FEW; PLATELET ESTIMATE NORMAL; TOTAL CELLS COUNTED 100
--- NOTE | 2018-12-07 06:45 | NUR ---
Problems reprioritized. Patient report given, questions answered & plan of care reviewed with RUI Oconnell.
[2018-12-07 07:00] VITALS: BP 168/78
[2018-12-07] MEDS: Dakins solution (1/4 strength) 473ml solution TP SCH ×2 (08:00→20:34)
[2018-12-07] MEDS: metroNIDAZOLE-Flagyl 500mg/NS 100 ML IV SCH ×3 (08:10→23:57)
[2018-12-07] MEDS: lactobacillus rhamnosus 10,000 MMU CELLS/CAPSULE PO SCH ×2 (08:11→20:18)
[2018-12-07] MEDS: loratadine 10mg tablet PO SCH (08:11)
[2018-12-07] MEDS: ceFAZolin 1GM/D5W- ADD-VANTAGE 50 ML IV SCH ×2 (08:11→20:18)
[2018-12-07] MEDS: amLODIPine 5mg tablet PO SCH (08:11)
[2018-12-07] MEDS: docusate sod 100mg capsule PO SCH ×2 (08:11→20:17)
[2018-12-07] MEDS: lisinopril 20mg tablet PO SCH (08:11)
[2018-12-07] MEDS: nystatin 15 GM powder TP SCH ×3 (08:12→20:17)
[2018-12-07] MEDS: insulin Lispro (HumaLOG) vial - multi-dose SQ SCH ×3 (08:26→18:49)
[2018-12-07] MEDS: K and/or MAG REPLACEMENT MC SCH (08:28)
[2018-12-07] MEDS: budesonide 0.5mg/2ml UD nebule IH SCH ×2 (08:30→19:48)
[2018-12-07 11:00] VITALS: BP 139/67
[2018-12-07] MEDS: HYDROcodone/acetaminophen 10/325mg tab PO PRN (15:00)
--- NOTE | 2018-12-07 15:17 | NUR ---
Went in to change patient's dressing. Patient stated "not right now". Patient further explained that she was just able to get back in bed and get warm and she does not want to be uncovered and have to get warm again. Will attempt again in a little while.
[2018-12-07 18:00] VITALS: BP 151/74
--- NOTE | 2018-12-07 19:21 | NUR ---
Patient in room [facility] 360. I have received report from Kourtney FABIAN and had the opportunity to ask questions and assume patient care.
[2018-12-07] MEDS: sennosides/docusate sodium tablet PO SCH (20:17)
[2018-12-07] MEDS: potassium Cl 20 mEq SR tablet PO SCH (20:19)
[2018-12-07] MEDS: atorvastatin 20mg tablet PO SCH (20:19)
[2018-12-07] MEDS: normal saline 1000ml 1,000 ML IV SCH (20:29)
[2018-12-07] MEDS: insulin glargine (Lantus) pen - multi-dose SQ SCH ×2 (21:00→21:44)
[2018-12-08] VITALS: BP 155/76
[2018-12-08] MEDS: potassium bicarbonate/cit acid 25mEq tablet.effervescent PO SCH ×4 (00:05→23:26)
--- NOTE | 2018-12-08 00:06 | NUR ---
patient medication won't scan. Lot number [id number] expiration date 06/28 (CHELIOR-CON/Ef
[2018-12-08] MEDS: HYDROcodone/acetaminophen 10/325mg tab PO PRN ×3 (04:09→22:16)
[2018-12-08 06:09] LABS: BASOPHILS # (AUTO) 0.1 X10'3 (0-0.2); BASOPHILS % (AUTO) 0.3 % (0-1); EOSINOPHILS # (AUTO) 0.5 X10'3 (0-0.9); EOSINOPHILS % (AUTO) 2.6 % (0-6); HEMATOCRIT 32.1 % (35.0-45.0); HEMOGLOBIN 10.4 g/dl (12.0-16.0); LYMPHOCYTES # (AUTO) 1.9 X10'3 (1.1-4.8); LYMPHOCYTES % (AUTO) 9.4 % (21-51); MEAN CORPUSCULAR HEMOGLOBIN 28.6 PG (27.0-31.0); MEAN CORPUSCULAR HGB CONC 32.3 g/dL (33.0-36.5); MEAN CORPUSCULAR VOLUME 88.5 FL (78-98); MEAN PLATELET VOLUME 6.9 FL (7.4-10.4); MONOCYTES # (AUTO) 1.3 X10'3 (0-0.9); MONOCYTES % (AUTO) 6.5 % (2-12); NEUTROPHILS % (AUTO) 81.2 % (42-75); PLATELET COUNT 395 X10'3 (140-440); RED BLOOD COUNT 3.63 X10'6 (4.20-5.60); RED CELL DISTRIBUTION WIDTH 15.1 % (11.5-14.5); WHITE BLOOD COUNT 19.8 X10'3 (4.5-11.0)
[2018-12-08 06:36] LABS: ALANINE AMINOTRANSFERASE 13 U/L (12-78); ALBUMIN 1.2 G/DL (3.4-5.0); ALBUMIN/GLOBULIN RATIO 0.3 (1.1-1.5); ALKALINE PHOSPHATASE 139 IU/L (46-116); ANION GAP 13 (8-16); ASPARTATE AMINO TRANSFERASE 32 U/L (10-37); BILIRUBIN,TOTAL 0.1 MG/DL (0.1-1.0); BLOOD UREA NITROGEN 23 MG/DL (7-18); BUN/CREATININE RATIO 8.5 (6.6-38.0); CALCIUM 7.4 MG/DL (8.5-10.1); CHLORIDE 115 MMOL/L (99-107); CREATININE 2.71 MG/DL (0.40-0.90); GLUCOSE 114 MG/DL (70-104); PHOSPHORUS 3.5 MG/DL (2.3-4.5); SODIUM 146 MMOL/L (135-145); TOTAL CARBON DIOXIDE 18.5 MMOL/L (24-32); TOTAL PROTEIN 5.5 G/DL (6.4-8.2); eGFR 18 ML/MIN
--- NOTE | 2018-12-08 06:36 | NUR ---
Problems reprioritized. Patient report given, questions answered & plan of care reviewed with Kourtney FABIAN.
[2018-12-08 08:00] VITALS: BP 147/73
[2018-12-08] MEDS: K and/or MAG REPLACEMENT MC SCH (08:00)
[2018-12-08] MEDS: Dakins solution (1/4 strength) 473ml solution TP SCH ×2 (08:00→20:32)
[2018-12-08] MEDS: nystatin 15 GM powder TP SCH ×3 (08:00→20:38)
[2018-12-08] MEDS: budesonide 0.5mg/2ml UD nebule IH SCH ×2 (08:55→18:38)
[2018-12-08] MEDS: lisinopril 20mg tablet PO SCH (08:59)
[2018-12-08] MEDS: amLODIPine 5mg tablet PO SCH (08:59)
[2018-12-08] MEDS: loratadine 10mg tablet PO SCH (08:59)
[2018-12-08] MEDS: lactobacillus rhamnosus 10,000 MMU CELLS/CAPSULE PO SCH ×2 (09:02→20:31)
[2018-12-08] MEDS: docusate sod 100mg capsule PO SCH ×2 (09:02→20:31)
[2018-12-08] MEDS: metroNIDAZOLE-Flagyl 500mg/NS 100 ML IV SCH ×3 (09:02→23:26)
[2018-12-08] MEDS: ceFAZolin 1GM/D5W- ADD-VANTAGE 50 ML IV SCH ×2 (09:02→19:28)
[2018-12-08] MEDS: insulin Lispro (HumaLOG) vial - multi-dose SQ SCH ×3 (09:02→18:55)
[2018-12-08] MEDS: magnesium Cl slow-release 64mg tablet PO PRN (09:10)
[2018-12-08] MEDS: magnesium Cl slow-release 64mg tablet PO SCH ×2 (10:00→20:31)
[2018-12-08 12:00] VITALS: BP 155/57
[2018-12-08] MEDS: normal saline 1000ml 1,000 ML IV SCH (13:36)
[2018-12-08 20:00] VITALS: BP 162/72
[2018-12-08] MEDS: sennosides/docusate sodium tablet PO SCH (20:31)
[2018-12-08] MEDS: atorvastatin 20mg tablet PO SCH (20:31)
[2018-12-08] MEDS: insulin glargine (Lantus) pen - multi-dose SQ SCH ×2 (20:35→21:00)
--- NOTE | 2018-12-08 21:37 | NUR ---
Patient in room [facility] 360. I have received report from RUI Oconnell and had the opportunity to ask questions and assume patient care. Addendum: 12/08/18 at 2137 by Cleo Boyd RN Amended: Links added.
--- NOTE | 2018-12-08 21:38 | NUR ---
Patient in room [facility] 360. I have received report from RUI Oconnell and had the opportunity to ask questions and assume patient care. Addendum: 12/08/18 at 2138 by Cleo Boyd RN Amended: Links added.
[2018-12-09] VITALS: BP 150/72
[2018-12-09] MEDS: normal saline 1000ml 1,000 ML IV SCH ×3 (01:09→20:40)
[2018-12-09 04:57] LABS: ALANINE AMINOTRANSFERASE 11 U/L (12-78); ALBUMIN 1.2 G/DL (3.4-5.0); ALBUMIN/GLOBULIN RATIO 0.3 (1.1-1.5); ALKALINE PHOSPHATASE 166 IU/L (46-116); ANION GAP 10 (8-16); ASPARTATE AMINO TRANSFERASE 25 U/L (10-37); BILIRUBIN,TOTAL 0.2 MG/DL (0.1-1.0); BLOOD UREA NITROGEN 24 MG/DL (7-18); CALCIUM 7.6 MG/DL (8.5-10.1); CHLORIDE 116 MMOL/L (99-107); CREATININE 2.66 MG/DL (0.40-0.90); GLUCOSE 104 MG/DL (70-104); MAGNESIUM 1.1 MG/DL (1.5-2.4); PHOSPHORUS 4.1 MG/DL (2.3-4.5); POTASSIUM 4.2 MMOL/L (3.5-5.1); SODIUM 145 MMOL/L (135-145); TOTAL CARBON DIOXIDE 18.7 MMOL/L (24-32); TOTAL PROTEIN 5.4 G/DL (6.4-8.2); eGFR 18 ML/MIN
[2018-12-09 05:00] LABS: BASOPHILS # (AUTO) 0.1 X10'3 (0-0.2); BASOPHILS % (AUTO) 0.7 % (0-1); EOSINOPHILS # (AUTO) 0.6 X10'3 (0-0.9); EOSINOPHILS % (AUTO) 3.1 % (0-6); HEMATOCRIT 29.5 % (35.0-45.0); HEMOGLOBIN 9.4 g/dl (12.0-16.0); LYMPHOCYTES # (AUTO) 2.4 X10'3 (1.1-4.8); LYMPHOCYTES % (AUTO) 13.4 % (21-51); MEAN CORPUSCULAR HEMOGLOBIN 28.6 PG (27.0-31.0); MEAN CORPUSCULAR HGB CONC 31.9 g/dL (33.0-36.5); MEAN CORPUSCULAR VOLUME 89.7 FL (78-98); MEAN PLATELET VOLUME 6.6 FL (7.4-10.4); MONOCYTES # (AUTO) 1.1 X10'3 (0-0.9); MONOCYTES % (AUTO) 5.9 % (2-12); NEUTROPHILS # (AUTO) 13.9 X10'3 (1.8-7.7); NEUTROPHILS % (AUTO) 76.9 % (42-75); PLATELET COUNT 351 X10'3 (140-440); RED BLOOD COUNT 3.29 X10'6 (4.20-5.60); RED CELL DISTRIBUTION WIDTH 14.8 % (11.5-14.5); WHITE BLOOD COUNT 18.1 X10'3 (4.5-11.0)
--- NOTE | 2018-12-09 06:12 | NUR ---
Problems reprioritized. Patient report given, questions answered & plan of care reviewed with RUI Oconnell. Addendum: 12/09/18 at 0613 by Cleo Boyd RN Amended: Links added.
[2018-12-09 07:00] VITALS: BP 148/72
[2018-12-09] MEDS: lactobacillus rhamnosus 10,000 MMU CELLS/CAPSULE PO SCH ×2 (07:31→20:40)
[2018-12-09] MEDS: metroNIDAZOLE-Flagyl 500mg/NS 100 ML IV SCH ×2 (07:31→16:17)
[2018-12-09] MEDS: docusate sod 100mg capsule PO SCH ×2 (07:31→19:08)
[2018-12-09] MEDS: magnesium Cl slow-release 64mg tablet PO SCH ×2 (07:31→20:41)
[2018-12-09] MEDS: ceFAZolin 1GM/D5W- ADD-VANTAGE 50 ML IV SCH (07:31)
[2018-12-09] MEDS: lisinopril 20mg tablet PO SCH (07:38)
[2018-12-09] MEDS: amLODIPine 5mg tablet PO SCH (07:38)
[2018-12-09] MEDS: magnesium Cl slow-release 64mg tablet PO PRN (07:38)
[2018-12-09] MEDS: potassium bicarbonate/cit acid 25mEq tablet.effervescent PO SCH ×2 (07:39→16:00)
[2018-12-09] MEDS: loratadine 10mg tablet PO SCH (07:39)
[2018-12-09] MEDS: nystatin 15 GM powder TP SCH ×3 (08:00→20:41)
[2018-12-09] MEDS: budesonide 0.5mg/2ml UD nebule IH SCH ×2 (08:11→19:06)
[2018-12-09] MEDS: Dakins solution (1/4 strength) 473ml solution TP SCH ×2 (10:09→20:41)
[2018-12-09] MEDS: CefTRIAXone 2gm/D5W 50ml 50 ML IV SCH (10:10)
[2018-12-09 12:00] VITALS: BP 166/78
[2018-12-09] MEDS: insulin Lispro (HumaLOG) vial - multi-dose SQ SCH ×2 (13:29→18:53)
[2018-12-09] MEDS: HYDROcodone/acetaminophen 10/325mg tab PO PRN (13:35)
--- NOTE | 2018-12-09 18:31 | NUR ---
Patient in room [facility] 360. I have received report from RUI Oconnell and had the opportunity to ask questions and assume patient care. Addendum: 12/09/18 at 1831 by Cleo Boyd RN Amended: Links added.
[2018-12-09 20:00] VITALS: BP 138/66
[2018-12-09] MEDS: potassium Cl 20 mEq SR tablet PO SCH (20:40)
[2018-12-09] MEDS: atorvastatin 20mg tablet PO SCH (20:40)
[2018-12-09] MEDS: insulin glargine (Lantus) pen - multi-dose SQ SCH ×2 (20:46→21:00)
[2018-12-10 00:04] VITALS: BP 148/73
[2018-12-10] MEDS: metroNIDAZOLE-Flagyl 500mg/NS 100 ML IV SCH ×4 (00:09→23:26)
[2018-12-10] MEDS: HYDROcodone/acetaminophen 10/325mg tab PO PRN ×2 (04:25→12:10)
[2018-12-10 04:53] LABS: BASOPHILS # (AUTO) 0.1 X10'3 (0-0.2); BASOPHILS % (AUTO) 0.6 % (0-1); EOSINOPHILS # (AUTO) 0.6 X10'3 (0-0.9); EOSINOPHILS % (AUTO) 3.2 % (0-6); HEMATOCRIT 29.1 % (35.0-45.0); HEMOGLOBIN 9.4 g/dl (12.0-16.0); LYMPHOCYTES # (AUTO) 2.7 X10'3 (1.1-4.8); LYMPHOCYTES % (AUTO) 15.3 % (21-51); MEAN CORPUSCULAR HEMOGLOBIN 28.9 PG (27.0-31.0); MEAN CORPUSCULAR HGB CONC 32.3 g/dL (33.0-36.5); MEAN CORPUSCULAR VOLUME 89.4 FL (78-98); MEAN PLATELET VOLUME 6.6 FL (7.4-10.4); MONOCYTES # (AUTO) 1.3 X10'3 (0-0.9); MONOCYTES % (AUTO) 7.5 % (2-12); NEUTROPHILS # (AUTO) 13.2 X10'3 (1.8-7.7); NEUTROPHILS % (AUTO) 73.4 % (42-75); PLATELET COUNT 376 X10'3 (140-440); RED BLOOD COUNT 3.26 X10'6 (4.20-5.60); RED CELL DISTRIBUTION WIDTH 14.9 % (11.5-14.5); WHITE BLOOD COUNT 17.9 X10'3 (4.5-11.0)
[2018-12-10 05:05] LABS: ALANINE AMINOTRANSFERASE 7 U/L (12-78); ALBUMIN 1.3 G/DL (3.4-5.0); ALBUMIN/GLOBULIN RATIO 0.3 (1.1-1.5); ALKALINE PHOSPHATASE 198 IU/L (46-116); ANION GAP 11 (8-16); ASPARTATE AMINO TRANSFERASE 19 U/L (10-37); BILIRUBIN,TOTAL 0.1 MG/DL (0.1-1.0); BLOOD UREA NITROGEN 24 MG/DL (7-18); CALCIUM 7.6 MG/DL (8.5-10.1); CHLORIDE 116 MMOL/L (99-107); CREATININE 2.68 MG/DL (0.40-0.90); GLUCOSE 116 MG/DL (70-104); PHOSPHORUS 3.9 MG/DL (2.3-4.5); POTASSIUM 3.8 MMOL/L (3.5-5.1); SODIUM 144 MMOL/L (135-145); TOTAL CARBON DIOXIDE 17.5 MMOL/L (24-32); TOTAL PROTEIN 5.5 G/DL (6.4-8.2); eGFR 18 ML/MIN
--- NOTE | 2018-12-10 06:16 | NUR ---
Problems reprioritized. Patient report given, questions answered & plan of care reviewed with RUI Abernathy. Addendum: 12/10/18 at 0617 by Cleo Boyd RN Amended: Links added.
--- NOTE | 2018-12-10 06:25 | NUR ---
Patient in room [facility] 360. I have received report from RUI Gallo and had the opportunity to ask questions and assume patient care.
[2018-12-10 07:00] VITALS: BP 122/67
--- NOTE | 2018-12-10 07:18 | NUR ---
Spoke to Dr. Solis regarding this patient's magnesium of 1.0-Per MD will give 2 gm of mg IV now and increase scheduled slow mag to 4 tables BID.
[2018-12-10] MEDS ORDERED: magnesium 2GM in 50ml NS 50 ML IV ONE (07:25)
[2018-12-10] MEDS: lactobacillus rhamnosus 10,000 MMU CELLS/CAPSULE PO SCH ×2 (07:37→21:08)
[2018-12-10] MEDS: nystatin 500,000 unit/5ML UD oral suspension PO SCH ×3 (07:37→21:10)
[2018-12-10] MEDS: potassium bicarbonate/cit acid 25mEq tablet.effervescent PO SCH ×4 (07:37→23:12)
[2018-12-10] MEDS: docusate sod 100mg capsule PO SCH ×2 (07:37→19:20)
[2018-12-10] MEDS: loratadine 10mg tablet PO SCH (07:37)
[2018-12-10] MEDS: lisinopril 20mg tablet PO SCH (07:38)
[2018-12-10] MEDS: amLODIPine 5mg tablet PO SCH (07:38)
[2018-12-10] MEDS: CefTRIAXone 2gm/D5W 50ml 50 ML IV SCH (07:39)
[2018-12-10] MEDS: nystatin 15 GM powder TP SCH ×3 (07:39→21:11)
[2018-12-10] MEDS: magnesium Cl slow-release 64mg tablet PO SCH ×2 (07:45→21:08)
[2018-12-10] MEDS: Dakins solution (1/4 strength) 473ml solution TP SCH ×3 (08:00→21:11)
[2018-12-10] MEDS: budesonide 0.5mg/2ml UD nebule IH SCH ×2 (09:46→20:38)
[2018-12-10 11:00] VITALS: BP 154/72
--- NOTE | 2018-12-10 12:04 | NUR ---
Reassessment: Per MD notes LANA resolved and hypokalemia stable. Patient with bilat groin wounds with MSSA and group B strep s/p wound drainage and to get wound VAC per MD notes. Pt with low mag, receiving electrolyte replacement. Patient's diet has been advanced to renal CHO controlled documented with 75-100% PO intake likely meeting nutrient needs. [facility] 12/09. Will continue to follow. Recommend: 1. continue renal carb controlled diet 2. wt per rx Addendum: 12/10/18 at [address] Amended: Links added.
[2018-12-10] MEDS: insulin Lispro (HumaLOG) vial - multi-dose SQ SCH ×2 (13:10→19:43)
[2018-12-10] MEDS: normal saline 1000ml 1,000 ML IV SCH ×2 (13:11→21:11)
--- NOTE | 2018-12-10 18:57 | NUR ---
Problems reprioritized. Patient report given, questions answered & plan of care reviewed with RUI Gallo.
[2018-12-10 20:00] VITALS: BP 152/74
[2018-12-10] MEDS: insulin glargine (Lantus) pen - multi-dose SQ SCH ×2 (21:00→21:10)
[2018-12-10] MEDS: atorvastatin 20mg tablet PO SCH (21:10)
[2018-12-10] MEDS: diatr meglu/diatrizoate 30ml oral sol.-(3 dose) bottle PO SCH (21:10)
[2018-12-10] MEDS: heparin, porcine 5000 units/ml vial SQ SCH (21:11)
--- NOTE | 2018-12-10 23:08 | NUR ---
Patient in room [facility] 360. I have received report from RUI Abernathy and had the opportunity to ask questions and assume patient care. Addendum: 12/10/18 at 2308 by Cleo Boyd RN Amended: Links added.
[2018-12-11] VITALS (14 sets, daily range): BP systolic 138–167; BP diastolic 65–81
[2018-12-11] MEDS: normal saline 1000ml 1,000 ML IV SCH ×3 (03:09→23:14)
[2018-12-11 04:30] LABS: BASOPHILS # (AUTO) 0.1 X10'3 (0-0.2); BASOPHILS % (AUTO) 0.8 % (0-1); EOSINOPHILS # (AUTO) 0.4 X10'3 (0-0.9); EOSINOPHILS % (AUTO) 3.2 % (0-6); HEMATOCRIT 27.8 % (35.0-45.0); HEMOGLOBIN 8.9 g/dl (12.0-16.0); LYMPHOCYTES # (AUTO) 2.9 X10'3 (1.1-4.8); LYMPHOCYTES % (AUTO) 20.6 % (21-51); MEAN CORPUSCULAR HEMOGLOBIN 28.8 PG (27.0-31.0); MEAN CORPUSCULAR VOLUME 90.2 FL (78-98); MEAN PLATELET VOLUME 6.5 FL (7.4-10.4); MONOCYTES # (AUTO) 1.2 X10'3 (0-0.9); MONOCYTES % (AUTO) 8.4 % (2-12); NEUTROPHILS # (AUTO) 9.5 X10'3 (1.8-7.7); PLATELET COUNT 362 X10'3 (140-440); RED BLOOD COUNT 3.09 X10'6 (4.20-5.60); WHITE BLOOD COUNT 14.2 X10'3 (4.5-11.0)
[2018-12-11 04:44] LABS: ALANINE AMINOTRANSFERASE 7 U/L (12-78); ALBUMIN 1.2 G/DL (3.4-5.0); ALBUMIN/GLOBULIN RATIO 0.3 (1.1-1.5); ALKALINE PHOSPHATASE 211 IU/L (46-116); ANION GAP 7 (8-16); ASPARTATE AMINO TRANSFERASE 17 U/L (10-37); BILIRUBIN,TOTAL 0.1 MG/DL (0.1-1.0); BLOOD UREA NITROGEN 19 MG/DL (7-18); BUN/CREATININE RATIO 7.8 (6.6-38.0); CALCIUM 7.7 MG/DL (8.5-10.1); CHLORIDE 116 MMOL/L (99-107); CREATININE 2.45 MG/DL (0.40-0.90); GLUCOSE 121 MG/DL (70-104); MAGNESIUM 1.4 MG/DL (1.5-2.4); PHOSPHORUS 3.9 MG/DL (2.3-4.5); POTASSIUM 3.9 MMOL/L (3.5-5.1); SODIUM 143 MMOL/L (135-145); TOTAL CARBON DIOXIDE 19.7 MMOL/L (24-32); TOTAL PROTEIN 5.3 G/DL (6.4-8.2); eGFR 20 ML/MIN
--- NOTE | 2018-12-11 06:24 | NUR ---
Problems reprioritized. Patient report given, questions answered & plan of care reviewed with RUI Abernathy. Addendum: 12/11/18 at 0624 by Cleo Boyd RN Amended: Links added.
--- NOTE | 2018-12-11 06:32 | NUR ---
Patient in room [facility] 360. I have received report from RUI Gallo and had the opportunity to ask questions and assume patient care.
[2018-12-11] MEDS: docusate sod 100mg capsule PO SCH ×2 (07:08→20:00)
[2018-12-11] MEDS: heparin, porcine 5000 units/ml vial SQ SCH ×2 (07:09→22:04)
--- NOTE | 2018-12-11 07:10 | NUR ---
Gave report to RUI Martínez in recovery. All questions answered.
[2018-12-11] MEDS: diatr meglu/diatrizoate 30ml oral sol.-(3 dose) bottle PO SCH ×2 (07:24→10:14)
[2018-12-11] MEDS: lisinopril 20mg tablet PO SCH (07:25)
[2018-12-11] MEDS: lactobacillus rhamnosus 10,000 MMU CELLS/CAPSULE PO SCH ×2 (07:25→22:02)
[2018-12-11] MEDS: nystatin 500,000 unit/5ML UD oral suspension PO SCH ×3 (07:25→22:09)
[2018-12-11] MEDS: loratadine 10mg tablet PO SCH (07:26)
[2018-12-11] MEDS: magnesium Cl slow-release 64mg tablet PO SCH ×2 (07:26→22:02)
[2018-12-11] MEDS: nystatin 15 GM powder TP SCH ×3 (07:26→22:09)
[2018-12-11] MEDS: metroNIDAZOLE-Flagyl 500mg/NS 100 ML IV SCH ×3 (07:26→23:47)
[2018-12-11] MEDS: amLODIPine 5mg tablet PO SCH (07:26)
[2018-12-11] MEDS: potassium bicarbonate/cit acid 25mEq tablet.effervescent PO SCH ×3 (07:26→23:47)
[2018-12-11] MEDS: CefTRIAXone 2gm/D5W 50ml 50 ML IV SCH (10:06)
[2018-12-11] MEDS: budesonide 0.5mg/2ml UD nebule IH SCH ×2 (10:13→20:26)
[2018-12-11] MEDS: albuterol 2.5 MG/3 ML nebule NEB PRN (10:14)
[2018-12-11] MEDS: Dakins solution (1/4 strength) 473ml solution TP SCH ×2 (12:21→20:00)
[2018-12-11 12:27] LABS: PARTIAL THROMBOPLASTIN TIME 30 SECONDS (22-32)
[2018-12-11] MEDS: insulin Lispro (HumaLOG) vial - multi-dose SQ SCH (12:56)
[2018-12-11] MEDS: HYDROcodone/acetaminophen 10/325mg tab PO PRN ×2 (12:57→22:00)
[2018-12-11] MEDS ORDERED: magnesium 2GM in 50ml NS 50 ML IV ONE (15:20)
[2018-12-11] MEDS ORDERED: desflurane 240ml liquid inh. IH ONE (18:02)
[2018-12-11] MEDS: potassium Cl 20 mEq SR tablet PO SCH (18:20)
[2018-12-11] MEDS ORDERED: ringers solution, lacted 1,000 ML IV SCH (18:55)
[2018-12-11] MEDS ORDERED: proCHLORperazine 10 MG/2 ml inj IV PRN (18:55)
[2018-12-11] MEDS ORDERED: morphine 4 MG/ML inj SYRINge IV PRN ×2 (18:55)
[2018-12-11] MEDS ORDERED: ondansetron/PF 4mg/2ml inj IV PRN (18:55)
[2018-12-11] MEDS ORDERED: meperidine/PF 25mg/ml syringe IV PRN ×3 (18:55)
--- NOTE | 2018-12-11 18:55 | NUR ---
Problems reprioritized. Patient report given, questions answered & plan of care reviewed with Kim RN.
[2018-12-11] MEDS ORDERED: midazolam 2 mg/2 ml injection ONE (18:59)
[2018-12-11] MEDS ORDERED: fentaNYL/PF 50MCG/1 ML 2ML syringe ONE ×3 (18:59→19:27)
[2018-12-11] MEDS ORDERED: ceFAZolin 1000mg inj ONE ×3 (19:17)
[2018-12-11] MEDS ORDERED: LIDOcaine 2% (20mg/ml) 5ml vial ONE (19:17)
[2018-12-11] MEDS ORDERED: propofol inj 20 ML IV ONE (19:17)
[2018-12-11] MEDS ORDERED: LIDOcaine 0.5% (5mg/ml) 50ml vial ONE (19:24)
[2018-12-11] MEDS ORDERED: MIDAZolam 1mg/ml 10ml vial ONE (19:26)
[2018-12-11] MEDS ORDERED: ketorolac trometh. 30mg/ml inj. ONE (19:27)
--- NOTE | 2018-12-11 19:40 | NUR ---
Received from OR via SURGICAL BED , accompanied by Anesthesiologist ADDISON and report given by Anesthesiolgist. PATIENT WITH PICC LINE TO RIGHT UE AND NEW WOUND VAC TO RIGHT INGUINAL AREA. PULLING AT 125 MM HG LOW CONTINOUS. LOTT CATHETER PRESENT WITH CLEAR YELLOW URINE IN ATRIUM. VSS AT THIS TIME. PAIN WELL CONTROLLED. Addendum: 12/11/18 at 1948 by Mauricio Urbina RN, RN Amended: Links added.
[2018-12-11] MEDS ORDERED: flumazenil 0.1 mg/ml inj. IV ONE (20:01)
[2018-12-11] MEDS ORDERED: labetalol 20mg/4ml (5mg/ml) syringe IV ONE (20:03)
--- NOTE | 2018-12-11 20:10 | NUR ---
ALL CRITERIA FOR TRANSFER TO THE FLOOR HAS BEEN ACHIEVED. VSS. BED LOW, CALL LIGHT AND VS. SET IN PLACE. RN PRESENT TO ACCEPT CARE. PATIENT RESTING COMFORTABLY IN BED. BELONGINGS SENT WITH PATIENT. DRESSINGS CDI. RN PAT PRESENT TO ACCEPT CARE. Addendum: 12/11/18 at 2014 by Mauricio Hill - RUI FABIAN Amended: Links added.
[2018-12-11] MEDS: atorvastatin 20mg tablet PO SCH (22:02)
[2018-12-11] MEDS: insulin glargine (Lantus) pen - multi-dose SQ SCH ×2 (22:15→22:22)
[2018-12-12] VITALS: BP_SYST 154; BP_SYST 157; BP_DIAS 81; BP_DIAS 88
[2018-12-12] MEDS: HYDROcodone/acetaminophen 10/325mg tab PO PRN ×2 (03:07→16:54)
[2018-12-12 04:00] VITALS: BP 130/70
[2018-12-12 06:13] LABS: BASOPHILS # (AUTO) 0.1 X10'3 (0-0.2); EOSINOPHILS # (AUTO) 0.3 X10'3 (0-0.9); EOSINOPHILS % (AUTO) 2.8 % (0-6); HEMATOCRIT 26.6 % (35.0-45.0); HEMOGLOBIN 8.5 g/dl (12.0-16.0); LYMPHOCYTES # (AUTO) 2.5 X10'3 (1.1-4.8); LYMPHOCYTES % (AUTO) 25.4 % (21-51); MEAN CORPUSCULAR HEMOGLOBIN 29.2 PG (27.0-31.0); MEAN CORPUSCULAR HGB CONC 32.1 g/dL (33.0-36.5); MONOCYTES # (AUTO) 0.8 X10'3 (0-0.9); NEUTROPHILS # (AUTO) 6.3 X10'3 (1.8-7.7); NEUTROPHILS % (AUTO) 62.8 % (42-75); PLATELET COUNT 321 X10'3 (140-440); RED BLOOD COUNT 2.93 X10'6 (4.20-5.60); RED CELL DISTRIBUTION WIDTH 15.2 % (11.5-14.5)
[2018-12-12 06:35] LABS: ALANINE AMINOTRANSFERASE 6 U/L (12-78); ALBUMIN 1.2 G/DL (3.4-5.0); ALBUMIN/GLOBULIN RATIO 0.3 (1.1-1.5); ALKALINE PHOSPHATASE 215 IU/L (46-116); ANION GAP 12 (8-16); ASPARTATE AMINO TRANSFERASE 17 U/L (10-37); BILIRUBIN,TOTAL 0.1 MG/DL (0.1-1.0); BLOOD UREA NITROGEN 18 MG/DL (7-18); BUN/CREATININE RATIO 7.8 (6.6-38.0); CALCIUM 7.6 MG/DL (8.5-10.1); CHLORIDE 119 MMOL/L (99-107); GLUCOSE 80 MG/DL (70-104); MAGNESIUM 1.8 MG/DL (1.5-2.4); PHOSPHORUS 4.5 MG/DL (2.3-4.5); SODIUM 147 MMOL/L (135-145); TOTAL CARBON DIOXIDE 16.5 MMOL/L (24-32); TOTAL PROTEIN 5.1 G/DL (6.4-8.2); eGFR 21 ML/MIN
[2018-12-12 07:10] VITALS: BP 131/69
[2018-12-12] MEDS: lactobacillus rhamnosus 10,000 MMU CELLS/CAPSULE PO SCH ×2 (07:48→20:16)
[2018-12-12] MEDS: loratadine 10mg tablet PO SCH (07:48)
[2018-12-12] MEDS: lisinopril 20mg tablet PO SCH (07:49)
[2018-12-12] MEDS: magnesium Cl slow-release 64mg tablet PO SCH ×2 (07:49→20:15)
[2018-12-12] MEDS: nystatin 500,000 unit/5ML UD oral suspension PO SCH ×3 (07:49→20:16)
[2018-12-12] MEDS: amLODIPine 5mg tablet PO SCH (07:49)
[2018-12-12] MEDS: nystatin 15 GM powder TP SCH ×3 (07:50→20:16)
[2018-12-12] MEDS: heparin, porcine 5000 units/ml vial SQ SCH ×2 (07:50→20:18)
[2018-12-12] MEDS: metroNIDAZOLE-Flagyl 500mg/NS 100 ML IV SCH ×3 (07:50→23:20)
[2018-12-12] MEDS: Dakins solution (1/4 strength) 473ml solution TP SCH ×2 (07:51→20:00)
[2018-12-12] MEDS: docusate sod 100mg capsule PO SCH ×2 (07:51→20:00)
[2018-12-12] MEDS: potassium bicarbonate/cit acid 25mEq tablet.effervescent PO SCH ×2 (07:57→16:15)
[2018-12-12] MEDS: CefTRIAXone 2gm/D5W 50ml 50 ML IV SCH (09:15)
[2018-12-12] MEDS: normal saline 1000ml 1,000 ML IV SCH ×3 (09:15→23:21)
[2018-12-12 11:05] VITALS: BP 141/63
[2018-12-12] MEDS: budesonide 0.5mg/2ml UD nebule IH SCH ×2 (11:38→20:33)
--- NOTE | 2018-12-12 12:22 | NUR ---
Dr. Meyers rounded stating pt is ready for rehab and the W[place] may be changed on Sunday, 12/13. RUI Quarles notified.
[2018-12-12] MEDS: insulin Lispro (HumaLOG) vial - multi-dose SQ SCH ×2 (13:16→18:47)
[2018-12-12 18:00] VITALS: BP 136/97
--- NOTE | 2018-12-12 18:30 | NUR ---
Received report from RUI Quarles. Patient is awake and alert on room air, in no apparent distress. Call light and items of frequent use within reach. Will continue to monitor.
--- NOTE | 2018-12-12 18:35 | NUR ---
Problems reprioritized. Patient report given, questions answered & plan of care reviewed with RUI Jefferson.
[2018-12-12] MEDS: atorvastatin 20mg tablet PO SCH (20:16)
[2018-12-12] MEDS: insulin glargine (Lantus) pen - multi-dose SQ SCH (21:55)
[2018-12-12] MEDS: POTASSIUM BICARB 20meq eff tab 20 MEQ TABLET.EFF PO SCH (23:20)
[2018-12-13 00:43] VITALS: BP 168/72
--- NOTE | 2018-12-13 06:15 | NUR ---
Problems reprioritized. Patient report given, questions answered & plan of care reviewed with RUI Quarles.
[2018-12-13 06:21] LABS: BASOPHILS # (AUTO) 0.1 X10'3 (0-0.2); BASOPHILS % (AUTO) 0.9 % (0-1); EOSINOPHILS # (AUTO) 0.4 X10'3 (0-0.9); EOSINOPHILS % (AUTO) 3.3 % (0-6); LYMPHOCYTES # (AUTO) 2.7 X10'3 (1.1-4.8); LYMPHOCYTES % (AUTO) 23.9 % (21-51); MEAN CORPUSCULAR HEMOGLOBIN 29.1 PG (27.0-31.0); MEAN CORPUSCULAR HGB CONC 32.2 g/dL (33.0-36.5); MEAN CORPUSCULAR VOLUME 90.2 FL (78-98); MEAN PLATELET VOLUME 6.8 FL (7.4-10.4); MONOCYTES % (AUTO) 8.8 % (2-12); NEUTROPHILS % (AUTO) 63.1 % (42-75); PLATELET COUNT 327 X10'3 (140-440); RED BLOOD COUNT 3.11 X10'6 (4.20-5.60); RED CELL DISTRIBUTION WIDTH 15.5 % (11.5-14.5); WHITE BLOOD COUNT 11.2 X10'3 (4.5-11.0)
[2018-12-13 06:33] LABS: ALBUMIN 1.3 G/DL (3.4-5.0); ALBUMIN/GLOBULIN RATIO 0.3 (1.1-1.5); ALKALINE PHOSPHATASE 264 IU/L (46-116); ANION GAP 8 (8-16); ASPARTATE AMINO TRANSFERASE 16 U/L (10-37); BILIRUBIN,TOTAL 0.2 MG/DL (0.1-1.0); BLOOD UREA NITROGEN 19 MG/DL (7-18); BUN/CREATININE RATIO 7.9 (6.6-38.0); CALCIUM 7.9 MG/DL (8.5-10.1); CHLORIDE 116 MMOL/L (99-107); CREATININE 2.41 MG/DL (0.40-0.90); GLUCOSE 94 MG/DL (70-104); MAGNESIUM 1.6 MG/DL (1.5-2.4); PHOSPHORUS 3.8 MG/DL (2.3-4.5); POTASSIUM 4.6 MMOL/L (3.5-5.1); SODIUM 142 MMOL/L (135-145); TOTAL CARBON DIOXIDE 18.5 MMOL/L (24-32); TOTAL PROTEIN 5.6 G/DL (6.4-8.2); eGFR 20 ML/MIN
[2018-12-13 06:34] LABS: ALANINE AMINOTRANSFERASE 6 U/L (12-78)
[2018-12-13 07:30] VITALS: BP 164/80
[2018-12-13] MEDS: nystatin 500,000 unit/5ML UD oral suspension PO SCH ×2 (07:38→13:33)
[2018-12-13] MEDS: metroNIDAZOLE-Flagyl 500mg/NS 100 ML IV SCH ×2 (07:38→16:29)
[2018-12-13] MEDS: loratadine 10mg tablet PO SCH (07:38)
[2018-12-13] MEDS: magnesium Cl slow-release 64mg tablet PO SCH (07:38)
[2018-12-13] MEDS: POTASSIUM BICARB 20meq eff tab 20 MEQ TABLET.EFF PO SCH ×2 (07:38→16:29)
[2018-12-13] MEDS: lactobacillus rhamnosus 10,000 MMU CELLS/CAPSULE PO SCH (07:38)
[2018-12-13] MEDS: lisinopril 20mg tablet PO SCH (07:39)
[2018-12-13] MEDS: heparin, porcine 5000 units/ml vial SQ SCH (07:39)
[2018-12-13] MEDS: amLODIPine 5mg tablet PO SCH (07:39)
[2018-12-13] MEDS: Dakins solution (1/4 strength) 473ml solution TP SCH (07:41)
[2018-12-13] MEDS: nystatin 15 GM powder TP SCH ×2 (07:41→13:34)
[2018-12-13] MEDS: docusate sod 100mg capsule PO SCH (07:41)
[2018-12-13] MEDS: insulin Lispro (HumaLOG) vial - multi-dose SQ SCH ×2 (08:32→14:09)
[2018-12-13] MEDS: CefTRIAXone 2gm/D5W 50ml 50 ML IV SCH (09:05)
[2018-12-13] MEDS: albuterol 2.5 MG/3 ML nebule NEB PRN (09:11)
[2018-12-13] MEDS: budesonide 0.5mg/2ml UD nebule IH SCH (09:11)
[2018-12-13 11:05] VITALS: BP 148/70
[2018-12-13] MEDS: HYDROcodone/acetaminophen 10/325mg tab PO PRN (12:08)
--- NOTE | 2018-12-13 14:14 | NUR ---
MED NOTE: patient just finished eating due to wound vac dressing change happening when trays were being passed. nutritional dose of 10 units of humalog given, no correctional dose.
[2018-12-13] MEDS: normal saline 1000ml 1,000 ML IV SCH (15:09)
--- NOTE | 2018-12-13 16:59 | NUR ---
Patient picked up by [facility] to transfer to [facility]. All belongings taken from room. Patient discharged with PICC line, valentin catheter and wound vac per MD orders. Report called to [facility]. Patient stable and appropriate for transfer.
--- NOTE | 2018-12-13 17:03 | NUR ---
home medications picked up from our pharmacy and sent with patient.
== END 2018-12-13 16:56 | DRG 710 ==
LOC: ER 15:14 → CICU 2S 19:03 → CMPBEDREQ 19:27 → SUR 3N 12-05 17:15
PROVIDERS: ADMIT Internal Medicine Critical Care Medicine; ATTEND Hospitalist
PROC: 0U9M0ZZ Drainage of Vulva, Open Approach (ICD-10-PCS; principal; 2018-12-03)
PROC: 0U9M0ZZ Drainage of Vulva, Open Approach (ICD-10-PCS; 2018-12-03)
PROC: 0JBL0ZZ Excision of Right Upper Leg Subcutaneous Tissue and Fascia, Open Approach (ICD-10-PCS; 2018-12-04)
PROC: 0JBL0ZZ Excision of Right Upper Leg Subcutaneous Tissue and Fascia, Open Approach (ICD-10-PCS; 2018-12-11)
DX: A40.9 Streptococcal sepsis, unspecified (principal); E11.22 Type 2 diabetes mellitus with diabetic chronic kidney disease; N17.9 Acute kidney failure, unspecified; E11.65 Type 2 diabetes mellitus with hyperglycemia; N18.4 Chronic kidney disease, stage 4 (severe); A41.01 Sepsis due to Methicillin susceptible Staphylococcus aureus; E78.5 Hyperlipidemia, unspecified; E87.6 Hypokalemia; I12.9 Hypertensive chronic kidney disease with stage 1 through stage 4 chronic kidney disease, or unspecified chronic kidney disease; J45.909 Unspecified asthma, uncomplicated; L02.214 Cutaneous abscess of groin; B95.61 Methicillin susceptible Staphylococcus aureus infection as the cause of diseases classified elsewhere; N20.0 Calculus of kidney; K21.9 Gastro-esophageal reflux disease without esophagitis; N76.4 Abscess of vulva; Z88.6 Allergy status to analgesic agent; Z91.010 Allergy to peanuts; Z91.018 Allergy to other foods; Z79.899 Other long term (current) drug therapy; Z79.82 Long term (current) use of aspirin; Z79.4 Long term (current) use of insulin; Z87.891 Personal history of nicotine dependence; Z98.49 Cataract extraction status, unspecified eye
CPT/HCPCS: 36415; 36569; 56405; 71045; 72192; 74176; 76775; 76937; 80053; 80202; 81001; 82570; 82948; 83036; 83605; 83735; 83880; 84100; 84132; 84145; 84300; 84484; 85025; 85610; 85730; 86885; 86900; 86901; 87040; 87070; 87075; 87077; 87081; 87186; 87207; 93005; 94640; 94760; 96365; 96366; 96367; 97110; 97116; 97161; 97530; 99291; A4215; A4618; A6253; A6446; A6449; A6550; A7000; G0378; J0690; J0696; J1170; J1644; J1815; J1885; J2001; J2250; J2270; J2370; J2405; J2543; J2704; J2710; J3010; J3370; J3475; J3480; J3490; J7030; J7120; J7626; Q9963

== ENCOUNTER 2019-05-07 09:20 | Day surgery (SDC) | payer MEDICAID ==
[~2019-05-07 09:20] MED LIST changes: +AMLO10TA2 PO; +ATOR20TA PO; +BECL10.62 IH; +INSU100I31 SQ; +LINE600T12 PO; +LISI40TA4 PO; -METF500T PO; +MYC15CR TOP; +POTA20PA40 PO
[2019-05-07] MEDS ORDERED: LIDOcaine 2% 5ml jelly ONE (09:57)
== END 2019-05-07 10:15 | disposition home or self-care (01) ==
LOC: WOUND CARE 09:20
PROVIDERS: ATTEND Surgery
DX: T81.89XD Other complications of procedures, not elsewhere classified, subsequent encounter (principal); E11.622 Type 2 diabetes mellitus with other skin ulcer; L98.412 Non-pressure chronic ulcer of buttock with fat layer exposed; L98.492 Non-pressure chronic ulcer of skin of other sites with fat layer exposed; E11.36 Type 2 diabetes mellitus with diabetic cataract; E11.22 Type 2 diabetes mellitus with diabetic chronic kidney disease; I12.9 Hypertensive chronic kidney disease with stage 1 through stage 4 chronic kidney disease, or unspecified chronic kidney disease; N18.4 Chronic kidney disease, stage 4 (severe); E78.5 Hyperlipidemia, unspecified; J44.9 Chronic obstructive pulmonary disease, unspecified; E78.00 Pure hypercholesterolemia, unspecified; G89.29 Other chronic pain; Z79.899 Other long term (current) drug therapy; Z87.891 Personal history of nicotine dependence; Z98.890 Other specified postprocedural states; Y83.8 Other surgical procedures as the cause of abnormal reaction of the patient, or of later complication, without mention of misadventure at the time of the procedure
CPT/HCPCS: 36416; 82948; 97597; A6266; A4663; A6212

== ENCOUNTER 2019-06-06 09:35 | Day surgery (SDC) | payer MEDICAID ==
[~2019-06-06 09:35] MED LIST changes: -LINE600T12 PO
[2019-06-06] MEDS ORDERED: LIDOcaine 2% 5ml jelly ONE (10:33)
== END 2019-06-06 11:50 | disposition home or self-care (01) ==
LOC: WOUND CARE 09:35
PROVIDERS: ATTEND Surgery
DX: T81.89XD Other complications of procedures, not elsewhere classified, subsequent encounter (principal); E11.622 Type 2 diabetes mellitus with other skin ulcer; L98.492 Non-pressure chronic ulcer of skin of other sites with fat layer exposed; E11.36 Type 2 diabetes mellitus with diabetic cataract; E11.22 Type 2 diabetes mellitus with diabetic chronic kidney disease; I12.9 Hypertensive chronic kidney disease with stage 1 through stage 4 chronic kidney disease, or unspecified chronic kidney disease; N18.4 Chronic kidney disease, stage 4 (severe); E78.5 Hyperlipidemia, unspecified; J44.9 Chronic obstructive pulmonary disease, unspecified; E78.00 Pure hypercholesterolemia, unspecified; G89.29 Other chronic pain; Z79.899 Other long term (current) drug therapy; Z87.891 Personal history of nicotine dependence; Z98.890 Other specified postprocedural states; Y83.8 Other surgical procedures as the cause of abnormal reaction of the patient, or of later complication, without mention of misadventure at the time of the procedure
CPT/HCPCS: 36416; 82948; 97597

== ENCOUNTER 2019-07-23 12:13 | Inpatient (IN) | payer MEDICAID ==
[~2019-07-23] VITALS: Ht 170.2 cm; Wt 87.4 kg
[2019-07-23] VITALS (7 sets, daily range): BP systolic 149–169; BP diastolic 77–89
[2019-07-23 13:09] LABS: BASOPHILS # (AUTO) 0.1 X10'3 (0-0.2); BASOPHILS % (AUTO) 1.3 % (0-1); EOSINOPHILS # (AUTO) 0.5 X10'3 (0-0.9); EOSINOPHILS % (AUTO) 7.1 % (0-6); HEMATOCRIT 22.3 % (35.0-45.0); LYMPHOCYTES # (AUTO) 1.2 X10'3 (1.1-4.8); LYMPHOCYTES % (AUTO) 15.8 % (21-51); MEAN CORPUSCULAR HEMOGLOBIN 27.4 PG (27.0-31.0); MEAN CORPUSCULAR HGB CONC 30.5 g/dL (33.0-36.5); MEAN CORPUSCULAR VOLUME 90.1 FL (78-98); MEAN PLATELET VOLUME 6.8 FL (7.4-10.4); MONOCYTES # (AUTO) 0.7 X10'3 (0-0.9); MONOCYTES % (AUTO) 8.8 % (2-12); NEUTROPHILS # (AUTO) 5.1 X10'3 (1.8-7.7); PLATELET COUNT 412 X10'3 (140-440); RED BLOOD COUNT 2.48 X10'6 (4.20-5.60); WHITE BLOOD COUNT 7.6 X10'3 (4.5-11.0)
[2019-07-23 13:12] LABS: HEMOGLOBIN 6.8 g/dl (12.0-16.0)
[2019-07-23 13:26] LABS: ALANINE AMINOTRANSFERASE 15 U/L (12-78); ALBUMIN 1.9 G/DL (3.4-5.0); ALBUMIN/GLOBULIN RATIO 0.3 (1.1-1.5); ALKALINE PHOSPHATASE 196 IU/L (46-116); ANION GAP 13 (8-16); ASPARTATE AMINO TRANSFERASE 14 U/L (10-37); BILIRUBIN,TOTAL 0.3 MG/DL (0.1-1.0); BLOOD UREA NITROGEN 34 MG/DL (7-18); BUN/CREATININE RATIO 13.3 (6.6-38.0); CHLORIDE 114 MMOL/L (99-107); CREATININE 2.56 MG/DL (0.40-0.90); POTASSIUM 4.2 MMOL/L (3.5-5.1); SODIUM 144 MMOL/L (135-145); TOTAL CARBON DIOXIDE 16.6 MMOL/L (24-32); TOTAL PROTEIN 7.4 G/DL (6.4-8.2); eGFR 19 ML/MIN
[2019-07-23 13:35] LABS: GLUCOSE 99 MG/DL (70-104)
[2019-07-23] MEDS ORDERED: ACET325T55 PO (14:15)
[2019-07-23] MEDS ORDERED: DOCU-148 PO (14:15)
[2019-07-23] MEDS ORDERED: METO-539 PO (14:15)
[2019-07-23] MEDS ORDERED: TRIA15CR61 TOP (14:18)
[2019-07-23] MEDS ORDERED: triamcinolone acetonide 0.5% cream 15gm TP PRN (15:30)
[2019-07-23] MEDS ORDERED: docusate sod 100mg capsule PO PRN (15:30)
[2019-07-23] MEDS: normal saline 1000ml 1,000 ML IV SCH (15:31)
[2019-07-23] MEDS ORDERED: furosemide 10 MG/1 ML 10ml inj IV ONE (15:35)
[2019-07-23] MEDS ORDERED: glucagon, human recombinant 1mg kit SUBCUT PRN (15:35)
[2019-07-23] MEDS ORDERED: morphine 2 MG/ML inj. syringe IV PRN ×2 (15:35)
[2019-07-23] MEDS ORDERED: acetaminophen 325mg tablet PO PRN (15:35)
[2019-07-23] MEDS ORDERED: insulin Lispro (HumaLOG) vial - multi-dose SQ SCH (15:35)
[2019-07-23] MEDS ORDERED: acetaminophen 650mg rectal suppository RC PRN (15:35)
[2019-07-23] MEDS ORDERED: potassium Cl 20 mEq SR tablet PO PRN ×2 (15:35)
[2019-07-23] MEDS ORDERED: magnesium 2GM in 50ml NS 50 ML IV PRN (15:35)
[2019-07-23] MEDS ORDERED: potassium CL 10mEq/100ml bag 100 ML IV PRN ×2 (15:35)
[2019-07-23] MEDS ORDERED: magnesium Cl slow-release 64mg tablet PO PRN (15:35)
[2019-07-23] MEDS ORDERED: magnesium hydroxide 30ml (MOM) UD suspension PO PRN (15:35)
[2019-07-23] MEDS ORDERED: dextrose ORAL solution 15 GM/59 ML bottle PO PRN ×2 (15:35)
[2019-07-23] MEDS ORDERED: MESSAGE TO PHARMACY PO ONE (15:35)
[2019-07-23] MEDS ORDERED: diphenhydrAMINE 25mg capsule PO PRN (15:35)
[2019-07-23] MEDS ORDERED: mag hydrox/Alum hydrox/simeth 30ml oral suspension PO PRN (15:35)
[2019-07-23] MEDS ORDERED: ondansetron/PF 4mg/2ml inj IV PRN (15:35)
[2019-07-23] MEDS ORDERED: dextrose 50%-water 50ml dispensing syringe IV PRN ×2 (15:35)
[2019-07-23] MEDS ORDERED: bisacodyl 10mg suppository rectal RC PRN (15:35)
[2019-07-23] MEDS ORDERED: magnesium 4gm in 100ml NS 100 ML IV PRN (15:35)
[2019-07-23] MEDS ORDERED: ipratropium/albuterol 3ml nebule NEB PRN (15:35)
[2019-07-23 15:48] LABS: CLARITY,URINE SLIGHTLY CLOUDY (Clear); COLOR,URINE YELLOW (Yellow); GLUCOSE, URINE 250 mg/dl (Neg); KETONES,URINE NEGATIVE (Neg); LEUKOCYTE ESTERASE ,URINE TRACE (Neg); NITRITES, URINE NEGATIVE (Neg); OCCULT BLOOD,URINE MODERATE (Neg); PH,URINE 5.5 (4.8-8.0); PROTEIN,URINE >=300 mg/dl (Neg); UROBILINOGEN,URINE 0.2 E.U/dL (0.2-1.0)
[2019-07-23 15:49] LABS: UA COLLECTION TYPE CLN CATCH MIDSTREAM
[2019-07-23 16:02] LABS: % IRON SATURATION 9 % (11-46); IRON 21 UG/DL (49-151); TOTAL IRON BINDING CAPACITY 233 UG/DL (259-388)
[2019-07-23 16:03] LABS: HEMOGLOBIN A1C 5.4 % (4.5-6.2)
[2019-07-23 16:04] LABS: BACTERIA,URINE FEW /HPF (Neg)
[2019-07-23 16:05] LABS: MUCUS STRANDS MANY /LPF (Neg); RENAL CELLS, URINE FEW /HPF; TRANSITIONAL EPI CELLS,URINE MODERATE /HPF; WBC CLUMPS,URINE FEW /HPF (NEGATIVE)
[2019-07-23 16:08] LABS: COARSE GRANULAR CAST 0-3 /LPF (NEGATIVE); FINE GRANULAR CAST 0-3 /LPF (NEGATIVE); SQUAMOUS EPITHELIAL CELL,UR MANY /LPF (FEW)
--- NOTE | 2019-07-23 16:08 | NUR ---
LAB CALLED AND SAID THEY AE REJECTING THE UA FOR CULTURALS WILL ELT PROVIDER KNOW
[2019-07-23 16:10] LABS: FERRITIN 137 NG/ML (8-252)
--- NOTE | 2019-07-23 16:11 | NUR ---
PER DR. DAUGHERTY OK TO HOLD LASIX UNTIL AFTER BLOOD IS TRANSFUSED, WILL CONTINUE TO MONITOR
[2019-07-23 16:26] LABS: OCCULT BLOOD STOOL NEGATIVE (Neg)
--- NOTE | 2019-07-23 17:08 | NUR ---
Report received from Eric FABIAN in ED, awaiting patient arrival to PCU 3014P.
--- NOTE | 2019-07-23 17:40 | NUR ---
Patient admitted to PCU 3013B. Patient transferred to bed from ED [facility] with SBA. Patient awake, alert, pale appearing, no complaints at this time. Admit VS taken and are stable at this time. Tele monitor applied. Patient oriented to room and call light use, BSC at bedside in reach of patient. Discussed plan of care with patient and she understands, no complaints at this time, will continue to monitor.
--- NOTE | 2019-07-23 18:32 | NUR ---
Problems reprioritized. Patient report given, questions answered & plan of care reviewed with Maria Isabel FABIAN.
--- NOTE | 2019-07-23 19:25 | NUR ---
Patient in room PCU 3013. I have received report from Saige Cartwright RN and had the opportunity to ask questions and assume patient care.
[2019-07-23] MEDS: NYSTATIN CREAM - 30GM TUBE TP SCH (19:55)
[2019-07-23] MEDS: budesonide 0.5mg/2ml UD nebule IH SCH ×2 (20:00→21:00)
[2019-07-23] MEDS: K and/or MAG REPLACEMENT MC SCH (20:00)
[2019-07-23] MEDS: ipratropium/albuterol 3ml nebule NEB SCH (20:00)
[2019-07-23] MEDS: atorvastatin 20mg tablet PO SCH (20:03)
[2019-07-23] MEDS: furosemide 10 MG/1 ML 10ml inj IV SCH (20:06)
[2019-07-23] MEDS ORDERED: temazepam 15mg capsule PO PRN (21:00)
[2019-07-23] MEDS: insulin glargine (Lantus) pen - multi-dose SQ SCH (21:00)
[2019-07-23 21:10] LABS: HEMOGLOBIN 7.5 g/dl (12.0-16.0); MEAN CORPUSCULAR HGB CONC 31.3 g/dL (33.0-36.5); MEAN CORPUSCULAR VOLUME 89.5 FL (78-98); MEAN PLATELET VOLUME 7.7 FL (7.4-10.4); PLATELET COUNT 356 X10'3 (140-440); RED BLOOD COUNT 2.69 X10'6 (4.20-5.60); RED CELL DISTRIBUTION WIDTH 17.4 % (11.5-14.5); WHITE BLOOD COUNT 8.5 X10'3 (4.5-11.0)
[2019-07-24] VITALS (11 sets, daily range): BP systolic 113–147; BP diastolic 60–75
[2019-07-24] MEDS: sodium ferric gluc complex inj 125 MG in normal saline 100ml IV soln 100 ML IV SCH ×2 (00:01→16:23)
[2019-07-24] MEDS: HYDROcodone/acetaminophen 10/325mg tab PO PRN (00:06)
[2019-07-24] MEDS: CefTRIAXone/D5W-Rocephin 1gm 50 ML IV SCH ×3 (01:29→13:51)
[2019-07-24] MEDS: ipratropium/albuterol 3ml nebule NEB SCH ×4 (02:00→21:08)
[2019-07-24 05:58] LABS: BASOPHILS # (AUTO) 0.1 X10'3 (0-0.2); BASOPHILS % (AUTO) 1.2 % (0-1); EOSINOPHILS # (AUTO) 0.6 X10'3 (0-0.9); EOSINOPHILS % (AUTO) 7.4 % (0-6); LYMPHOCYTES # (AUTO) 1.3 X10'3 (1.1-4.8); LYMPHOCYTES % (AUTO) 16.7 % (21-51); MEAN CORPUSCULAR HGB CONC 31.2 g/dL (33.0-36.5); MEAN CORPUSCULAR VOLUME 89.6 FL (78-98); MEAN PLATELET VOLUME 6.8 FL (7.4-10.4); MONOCYTES # (AUTO) 0.7 X10'3 (0-0.9); MONOCYTES % (AUTO) 8.7 % (2-12); NEUTROPHILS # (AUTO) 5.1 X10'3 (1.8-7.7); PLATELET COUNT 326 X10'3 (140-440); RED BLOOD COUNT 2.38 X10'6 (4.20-5.60); WHITE BLOOD COUNT 7.8 X10'3 (4.5-11.0)
[2019-07-24 06:27] LABS: ALANINE AMINOTRANSFERASE 8 U/L (12-78); ALBUMIN 1.5 G/DL (3.4-5.0); ALBUMIN/GLOBULIN RATIO 0.3 (1.1-1.5); ALKALINE PHOSPHATASE 169 IU/L (46-116); ANION GAP 11 (8-16); ASPARTATE AMINO TRANSFERASE 13 U/L (10-37); BILIRUBIN,TOTAL 0.2 MG/DL (0.1-1.0); BLOOD UREA NITROGEN 37 MG/DL (7-18); BUN/CREATININE RATIO 14.6 (6.6-38.0); CALCIUM 7.8 MG/DL (8.5-10.1); CHLORIDE 116 MMOL/L (99-107); CHOL/HDL RATIO 3.1 (0.00-4.99); CHOLESTEROL 90 MG/DL (0-200); CREATININE 2.53 MG/DL (0.40-0.90); HDL CHOLESTEROL 29 MG/DL (35-60); LDL CHOLESTEROL 51 MG/DL (50-100); MAGNESIUM 1.7 MG/DL (1.5-2.4); PHOSPHORUS 6.6 MG/DL (2.3-4.5); POTASSIUM 4.3 MMOL/L (3.5-5.1); SODIUM 143 MMOL/L (135-145); TOTAL CARBON DIOXIDE 15.8 MMOL/L (24-32); TOTAL PROTEIN 6.1 G/DL (6.4-8.2); TRIGLYCERIDES 67 MG/DL (20-135); eGFR 19 ML/MIN
--- NOTE | 2019-07-24 06:27 | NUR ---
Problems reprioritized. Patient report given, questions answered & plan of care reviewed with Saige Cartwright RN and Sunni FABIAN.
[2019-07-24 06:28] LABS: HEMOGLOBIN 6.7 g/dl (12.0-16.0)
--- NOTE | 2019-07-24 06:28 | NUR ---
Critical labs of hgb 6.7 and hct 21[address] Pedersen at 0628, given orders to transfuse 1 unit PRBC.
[2019-07-24 06:29] LABS: HEMATOCRIT 21.3 % (35.0-45.0)
[2019-07-24 06:30] LABS: GLUCOSE 98 MG/DL (70-104)
--- NOTE | 2019-07-24 06:30 | NUR ---
PAGER ID: [phone] MESSAGE: Saige iris [phone]. RE Vickey Leach [id number]. CRITICAL LAB: Hgb 6.7, Hct 21.3. Did receive 1 unit PRBC yesterday. Thanks!
--- NOTE | 2019-07-24 06:58 | NUR ---
Patient in room PCU 3013B. I have received report from Maria Isabel FABIAN and had the opportunity to ask questions and assume patient care. Patient laying in bed, eyes closed, no signs of distress, will continue to monitor.
[2019-07-24] MEDS: loratadine 10mg tablet PO SCH (07:39)
[2019-07-24] MEDS: furosemide 10 MG/1 ML 10ml inj IV SCH ×2 (07:39→20:16)
[2019-07-24] MEDS: metoprolol succinate 25mg (24-HOUR) SR. Tablet PO SCH (07:40)
[2019-07-24] MEDS: amLODIPine 5mg tablet PO SCH (07:41)
[2019-07-24] MEDS: K and/or MAG REPLACEMENT MC SCH ×2 (08:00→20:00)
[2019-07-24] MEDS: NYSTATIN CREAM - 30GM TUBE TP SCH ×2 (08:00→20:18)
[2019-07-24] MEDS: budesonide 0.5mg/2ml UD nebule IH SCH ×2 (09:07→21:09)
--- NOTE | 2019-07-24 10:03 | NUR ---
DM consult: Pt with A1c 5.4, DM education not warranted at this time. Will continue to follow. Addendum: 07/24/19 at [address] Amended: Links added.
[2019-07-24 10:10] LABS: TOTAL PROTEIN,URINE RANDOM 274.8 MG/DL
--- NOTE | 2019-07-24 10:30 | NUR ---
PAGER ID: [phone] MESSAGE: Saige simmons [phone]. RE Vickey Leach [id number]. Pt did get Lasix 40mg IVP after transfusion yesterday, has 20mg BID ordered. Did you want any additional Lasix after the transfusion today? Thanks!
--- NOTE | 2019-07-24 11:06 | NUR ---
PAGER ID: [phone] MESSAGE: Saige simmons [phone]. RE Vickey Leach [id number]. FYI Pt had 6 beat run of v tach, at 1100. Receiving blood, VS stable, no symptoms. Thanks!
[2019-07-24] MEDS: acetaminophen 325mg tablet PO PRN (15:46)
[2019-07-24 15:58] LABS: HEMATOCRIT 25.8 % (35.0-45.0); HEMOGLOBIN 8.1 g/dl (12.0-16.0); MEAN CORPUSCULAR HEMOGLOBIN 27.8 PG (27.0-31.0); MEAN CORPUSCULAR HGB CONC 31.5 g/dL (33.0-36.5); MEAN CORPUSCULAR VOLUME 88.2 FL (78-98); PLATELET COUNT 361 X10'3 (140-440); RED BLOOD COUNT 2.92 X10'6 (4.20-5.60); RED CELL DISTRIBUTION WIDTH 17.3 % (11.5-14.5); WHITE BLOOD COUNT 9.6 X10'3 (4.5-11.0)
[2019-07-24] MEDS: lisinopril 20mg tablet PO SCH (16:23)
--- NOTE | 2019-07-24 16:53 | NUR ---
1400 SVN treatment triaged
--- NOTE | 2019-07-24 18:48 | NUR ---
Problems reprioritized. Patient report given, questions answered & plan of care reviewed with Shanika FABIAN.
--- NOTE | 2019-07-24 18:49 | NUR ---
Patient in room PCU 3013. I have received report from RUI Moulton and had the opportunity to ask questions and assume patient care.
[2019-07-24] MEDS: lactobacillus rhamnosus 10,000 MMU CELLS/CAPSULE PO SCH (20:16)
[2019-07-24] MEDS: atorvastatin 20mg tablet PO SCH (20:16)
[2019-07-24] MEDS: HYDROcodone/acetaminophen 5mg/325mg tablet PO PRN (20:17)
[2019-07-24] MEDS: insulin glargine (Lantus) pen - multi-dose SQ SCH (21:00)
[2019-07-25 02:00] VITALS: BP 126/63
[2019-07-25] MEDS: ipratropium/albuterol 3ml nebule NEB SCH ×4 (02:00→20:01)
[2019-07-25 06:00] VITALS: BP 135/65
[2019-07-25 06:11] LABS: BASOPHILS # (AUTO) 0.1 X10'3 (0-0.2); BASOPHILS % (AUTO) 1.2 % (0-1); EOSINOPHILS # (AUTO) 0.6 X10'3 (0-0.9); EOSINOPHILS % (AUTO) 7.6 % (0-6); HEMATOCRIT 25.4 % (35.0-45.0); LYMPHOCYTES # (AUTO) 1.5 X10'3 (1.1-4.8); LYMPHOCYTES % (AUTO) 18.3 % (21-51); MEAN CORPUSCULAR HEMOGLOBIN 27.9 PG (27.0-31.0); MEAN CORPUSCULAR HGB CONC 31.3 g/dL (33.0-36.5); MEAN CORPUSCULAR VOLUME 89.1 FL (78-98); MEAN PLATELET VOLUME 7.3 FL (7.4-10.4); MONOCYTES # (AUTO) 0.7 X10'3 (0-0.9); MONOCYTES % (AUTO) 8.6 % (2-12); NEUTROPHILS # (AUTO) 5.2 X10'3 (1.8-7.7); NEUTROPHILS % (AUTO) 64.3 % (42-75); PLATELET COUNT 364 X10'3 (140-440); RED BLOOD COUNT 2.85 X10'6 (4.20-5.60); RED CELL DISTRIBUTION WIDTH 17.2 % (11.5-14.5); WHITE BLOOD COUNT 8.2 X10'3 (4.5-11.0)
--- NOTE | 2019-07-25 06:17 | NUR ---
Problems reprioritized. Patient report given, questions answered & plan of care reviewed with RUI Moulton.
--- NOTE | 2019-07-25 06:20 | NUR ---
Patient in room PCU 3013B. I have received report from Shanika FABIAN and had the opportunity to ask questions and assume patient care.
[2019-07-25 06:34] LABS: ALANINE AMINOTRANSFERASE 13 U/L (12-78); ALBUMIN 1.7 G/DL (3.4-5.0); ALBUMIN/GLOBULIN RATIO 0.3 (1.1-1.5); ALKALINE PHOSPHATASE 206 IU/L (46-116); ANION GAP 11 (8-16); ASPARTATE AMINO TRANSFERASE 15 U/L (10-37); BILIRUBIN,TOTAL 0.2 MG/DL (0.1-1.0); BLOOD UREA NITROGEN 43 MG/DL (7-18); BUN/CREATININE RATIO 15.4 (6.6-38.0); CALCIUM 7.8 MG/DL (8.5-10.1); CHLORIDE 113 MMOL/L (99-107); MAGNESIUM 1.6 MG/DL (1.5-2.4); PHOSPHORUS 6.9 MG/DL (2.3-4.5); POTASSIUM 4.2 MMOL/L (3.5-5.1); SODIUM 141 MMOL/L (135-145); TOTAL CARBON DIOXIDE 17.2 MMOL/L (24-32); TOTAL PROTEIN 6.9 G/DL (6.4-8.2); eGFR 17 ML/MIN
[2019-07-25 06:38] LABS: GLUCOSE 109 MG/DL (70-104)
[2019-07-25] MEDS: CefTRIAXone/D5W-Rocephin 1gm 50 ML IV SCH (07:57)
[2019-07-25] MEDS: loratadine 10mg tablet PO SCH (07:57)
[2019-07-25] MEDS: amLODIPine 5mg tablet PO SCH (07:57)
[2019-07-25] MEDS: lisinopril 20mg tablet PO SCH (07:58)
[2019-07-25] MEDS: metoprolol succinate 25mg (24-HOUR) SR. Tablet PO SCH (07:58)
[2019-07-25] MEDS: lactobacillus rhamnosus 10,000 MMU CELLS/CAPSULE PO SCH ×2 (07:58→20:14)
[2019-07-25] MEDS: K and/or MAG REPLACEMENT MC SCH ×2 (08:00→20:08)
[2019-07-25] MEDS: acetaminophen 325mg tablet PO PRN ×2 (08:00→15:20)
[2019-07-25] MEDS: furosemide 10 MG/1 ML 10ml inj IV SCH (08:00)
[2019-07-25] MEDS: NYSTATIN CREAM - 30GM TUBE TP SCH ×2 (08:24→20:14)
[2019-07-25] MEDS: budesonide 0.5mg/2ml UD nebule IH SCH ×2 (08:54→20:01)
[2019-07-25 09:58] LABS: OCCULT BLOOD STOOL NEGATIVE (Neg)
[2019-07-25 11:00] VITALS: BP 139/63
[2019-07-25] MEDS ORDERED: epoetin 20,000 units/ml inj SQ ONE (11:15)
[2019-07-25] MEDS: sodium ferric gluc complex inj 125 MG in normal saline 100ml IV soln 100 ML IV SCH (12:42)
[2019-07-25 15:00] VITALS: BP 138/71
[2019-07-25] MEDS: furosemide 40mg/4ml inj IV SCH ×2 (15:21→20:14)
[2019-07-25] MEDS: normal saline 1000ml 1,000 ML IV SCH (15:32)
[2019-07-25 18:00] VITALS: BP 137/64
--- NOTE | 2019-07-25 18:28 | NUR ---
Patient in room PCU 3013. I have received report from Saige FABIAN and had the opportunity to ask questions and assume patient care.
--- NOTE | 2019-07-25 18:28 | NUR ---
Problems reprioritized. Patient report given, questions answered & plan of care reviewed with Renard FABIAN.
[2019-07-25] MEDS: insulin glargine (Lantus) pen - multi-dose SQ SCH (20:12)
[2019-07-25] MEDS: atorvastatin 20mg tablet PO SCH (20:14)
[2019-07-25 22:00] VITALS: BP 137/69
[2019-07-25] MEDS: HYDROcodone/acetaminophen 10/325mg tab PO PRN (23:53)
[2019-07-26] MEDS: furosemide 40mg/4ml inj IV SCH ×4 (01:43→20:06)
[2019-07-26 02:00] VITALS: BP 141/69
[2019-07-26] MEDS: ipratropium/albuterol 3ml nebule NEB SCH ×4 (02:00→20:04)
[2019-07-26 05:55] LABS: BASOPHILS # (AUTO) 0.1 X10'3 (0-0.2); BASOPHILS % (AUTO) 0.9 % (0-1); EOSINOPHILS # (AUTO) 0.8 X10'3 (0-0.9); EOSINOPHILS % (AUTO) 7.9 % (0-6); HEMOGLOBIN 8.1 g/dl (12.0-16.0); LYMPHOCYTES # (AUTO) 1.5 X10'3 (1.1-4.8); LYMPHOCYTES % (AUTO) 15.2 % (21-51); MEAN CORPUSCULAR HEMOGLOBIN 27.7 PG (27.0-31.0); MEAN CORPUSCULAR HGB CONC 31.3 g/dL (33.0-36.5); MEAN CORPUSCULAR VOLUME 88.5 FL (78-98); MEAN PLATELET VOLUME 7.1 FL (7.4-10.4); MONOCYTES # (AUTO) 0.8 X10'3 (0-0.9); MONOCYTES % (AUTO) 8.2 % (2-12); NEUTROPHILS # (AUTO) 6.7 X10'3 (1.8-7.7); NEUTROPHILS % (AUTO) 67.8 % (42-75); PLATELET COUNT 397 X10'3 (140-440); RED BLOOD COUNT 2.93 X10'6 (4.20-5.60); RED CELL DISTRIBUTION WIDTH 17.5 % (11.5-14.5); WHITE BLOOD COUNT 9.8 X10'3 (4.5-11.0)
[2019-07-26 06:00] VITALS: BP 143/63
--- NOTE | 2019-07-26 06:29 | NUR ---
Problems reprioritized. Patient report given, questions answered & plan of care reviewed with Luc FABIAN.
--- NOTE | 2019-07-26 06:33 | NUR ---
Patient in room PCU 3013. I have received report from Renard and had the opportunity to ask questions and assume patient care.
[2019-07-26 06:34] LABS: RHEUM FACTOR QUAL REFLEX TITER NEGATIVE (Neg)
[2019-07-26 06:35] LABS: ALANINE AMINOTRANSFERASE 14 U/L (12-78); ALBUMIN 1.8 G/DL (3.4-5.0); ALBUMIN/GLOBULIN RATIO 0.3 (1.1-1.5); ALKALINE PHOSPHATASE 203 IU/L (46-116); ANION GAP 12 (8-16); ASPARTATE AMINO TRANSFERASE 13 U/L (10-37); BILIRUBIN,TOTAL 0.2 MG/DL (0.1-1.0); BLOOD UREA NITROGEN 44 MG/DL (7-18); BUN/CREATININE RATIO 14.6 (6.6-38.0); CALCIUM 8.1 MG/DL (8.5-10.1); CHLORIDE 112 MMOL/L (99-107); CREATININE 3.01 MG/DL (0.40-0.90); LACTATE DEHYDROGENASE 176 U/L (81-234); MAGNESIUM 1.7 MG/DL (1.5-2.4); PHOSPHORUS 6.7 MG/DL (2.3-4.5); SODIUM 140 MMOL/L (135-145); TOTAL CARBON DIOXIDE 15.8 MMOL/L (24-32); TOTAL PROTEIN 7.2 G/DL (6.4-8.2); eGFR 16 ML/MIN
[2019-07-26 06:38] LABS: GLUCOSE 111 MG/DL (70-104)
[2019-07-26] MEDS: K and/or MAG REPLACEMENT MC SCH ×2 (06:45→19:59)
[2019-07-26] MEDS: metoprolol succinate 25mg (24-HOUR) SR. Tablet PO SCH (08:09)
[2019-07-26] MEDS: lactobacillus rhamnosus 10,000 MMU CELLS/CAPSULE PO SCH ×2 (08:09→20:07)
[2019-07-26] MEDS: lisinopril 20mg tablet PO SCH (08:09)
[2019-07-26] MEDS: CefTRIAXone/D5W-Rocephin 1gm 50 ML IV SCH (08:10)
[2019-07-26] MEDS: amLODIPine 5mg tablet PO SCH (08:10)
[2019-07-26] MEDS: NYSTATIN CREAM - 30GM TUBE TP SCH ×2 (08:22→21:34)
[2019-07-26] MEDS: loratadine 10mg tablet PO SCH (08:24)
[2019-07-26] MEDS: budesonide 0.5mg/2ml UD nebule IH SCH ×2 (09:00→20:04)
[2019-07-26] MEDS: sodium ferric gluc complex inj 125 MG in normal saline 100ml IV soln 100 ML IV SCH (09:59)
[2019-07-26 11:00] VITALS: BP 132/59
--- NOTE | 2019-07-26 11:37 | NUR ---
Luc 0134 Re: Jessica Leach Patient positive MRSA in nares
[2019-07-26] MEDS: sodium bicarbonate 650mg tablet PO SCH ×2 (12:22→20:07)
--- NOTE | 2019-07-26 13:39 | NUR ---
Patient in room PCU 3013. I have received report from RUI Calle and had the opportunity to ask questions and assume patient care.
--- NOTE | 2019-07-26 13:47 | NUR ---
Problems reprioritized. Patient report given, questions answered & plan of care reviewed with Kellee FABIAN.
[2019-07-26 15:00] VITALS: BP 142/66
[2019-07-26 18:00] VITALS: BP 138/60
--- NOTE | 2019-07-26 18:11 | NUR ---
Patient in room PCU 3013. I have received report from Kellee FABIAN and had the opportunity to ask questions and assume patient care.
--- NOTE | 2019-07-26 18:11 | NUR ---
Problems reprioritized. Patient report given, questions answered & plan of care reviewed with RUI Glynn.
[2019-07-26] MEDS: VANCOmycin 1250MG/NS 250ml Bag 250 ML IV SCH (18:40)
[2019-07-26] MEDS: atorvastatin 20mg tablet PO SCH (20:07)
[2019-07-26] MEDS: insulin glargine (Lantus) pen - multi-dose SQ SCH (20:34)
[2019-07-26] MEDS: HYDROcodone/acetaminophen 10/325mg tab PO PRN (21:30)
[2019-07-26 22:00] VITALS: BP 133/61
--- NOTE | 2019-07-26 22:04 | NUR ---
Problems reprioritized. Patient report given, questions answered & plan of care reviewed with Brandy FABIAN.
[2019-07-27] MEDS: furosemide 40mg/4ml inj IV SCH ×4 (01:55→20:36)
[2019-07-27 02:00] VITALS: BP 137/65
[2019-07-27] MEDS: ipratropium/albuterol 3ml nebule NEB SCH ×4 (03:00→21:01)
[2019-07-27 06:00] VITALS: BP 136/64
[2019-07-27 06:14] LABS: BASOPHILS # (AUTO) 0.1 X10'3 (0-0.2); BASOPHILS % (AUTO) 0.7 % (0-1); EOSINOPHILS # (AUTO) 0.6 X10'3 (0-0.9); EOSINOPHILS % (AUTO) 6.9 % (0-6); HEMATOCRIT 24.5 % (35.0-45.0); HEMOGLOBIN 7.9 g/dl (12.0-16.0); LYMPHOCYTES # (AUTO) 1.3 X10'3 (1.1-4.8); LYMPHOCYTES % (AUTO) 13.9 % (21-51); MEAN CORPUSCULAR HEMOGLOBIN 28.6 PG (27.0-31.0); MEAN CORPUSCULAR HGB CONC 32.3 g/dL (33.0-36.5); MEAN CORPUSCULAR VOLUME 88.5 FL (78-98); MEAN PLATELET VOLUME 6.8 FL (7.4-10.4); MONOCYTES # (AUTO) 0.9 X10'3 (0-0.9); MONOCYTES % (AUTO) 9.8 % (2-12); NEUTROPHILS # (AUTO) 6.3 X10'3 (1.8-7.7); NEUTROPHILS % (AUTO) 68.7 % (42-75); PLATELET COUNT 353 X10'3 (140-440); RED BLOOD COUNT 2.77 X10'6 (4.20-5.60); WHITE BLOOD COUNT 9.1 X10'3 (4.5-11.0)
--- NOTE | 2019-07-27 06:19 | NUR ---
Problems reprioritized. Patient report given, questions answered & plan of care reviewed with RUI Thomson.
--- NOTE | 2019-07-27 06:30 | NUR ---
Received report from Brandy FABIAN
[2019-07-27 06:54] LABS: ALANINE AMINOTRANSFERASE 10 U/L (12-78); ALBUMIN 1.6 G/DL (3.4-5.0); ALBUMIN/GLOBULIN RATIO 0.3 (1.1-1.5); ALKALINE PHOSPHATASE 173 IU/L (46-116); ANION GAP 13 (8-16); ASPARTATE AMINO TRANSFERASE 13 U/L (10-37); BILIRUBIN,TOTAL 0.2 MG/DL (0.1-1.0); BLOOD UREA NITROGEN 47 MG/DL (7-18); BUN/CREATININE RATIO 16.6 (6.6-38.0); CALCIUM 7.8 MG/DL (8.5-10.1); CHLORIDE 112 MMOL/L (99-107); CREATININE 2.83 MG/DL (0.40-0.90); GLUCOSE 100 MG/DL (70-104); MAGNESIUM 1.6 MG/DL (1.5-2.4); PHOSPHORUS 6.5 MG/DL (2.3-4.5); POTASSIUM 3.8 MMOL/L (3.5-5.1); SODIUM 140 MMOL/L (135-145); TOTAL PROTEIN 6.5 G/DL (6.4-8.2); eGFR 17 ML/MIN
[2019-07-27] MEDS: CefTRIAXone/D5W-Rocephin 1gm 50 ML IV SCH (07:15)
[2019-07-27] MEDS: loratadine 10mg tablet PO SCH (07:16)
[2019-07-27] MEDS: sodium bicarbonate 650mg tablet PO SCH ×3 (07:16→20:36)
[2019-07-27] MEDS: lisinopril 20mg tablet PO SCH (07:16)
[2019-07-27] MEDS: lactobacillus rhamnosus 10,000 MMU CELLS/CAPSULE PO SCH ×2 (07:17→20:36)
[2019-07-27] MEDS: amLODIPine 5mg tablet PO SCH (07:17)
[2019-07-27] MEDS: metoprolol succinate 25mg (24-HOUR) SR. Tablet PO SCH (07:29)
[2019-07-27] MEDS: NYSTATIN CREAM - 30GM TUBE TP SCH ×2 (07:29→20:38)
[2019-07-27] MEDS: K and/or MAG REPLACEMENT MC SCH ×2 (08:00→20:39)
--- NOTE | 2019-07-27 08:07 | NUR ---
Received call from Sadie in Micro. Patient has a positive MRSA culture from the straight cath in her urine. I informed primary nurse.
[2019-07-27] MEDS: sodium ferric gluc complex inj 125 MG in normal saline 100ml IV soln 100 ML IV SCH (08:34)
[2019-07-27] MEDS: budesonide 0.5mg/2ml UD nebule IH SCH ×2 (09:03→21:00)
[2019-07-27 11:00] VITALS: BP 134/61
[2019-07-27] MEDS: sodium bicarbonate (8.4%) inj. 75 MEQ in dextrose 5% water 500ml 500 ML IV SCH ×2 (11:45→22:00)
[2019-07-27] MEDS: terbinafine cream 30gm TP SCH ×2 (11:50→20:38)
--- NOTE | 2019-07-27 12:06 | NUR ---
Initial: Pt admit w/ increasing BLE edema; DX Nephrosis EF 55%, T2DM A1C 5.4, HTN, anemia in CKD, iron deficiency anemia, CKD IV, and metabolic acidosis per MD. Receiving iron replacement for anemia. PO 100% avg renal/carb controlled meals since admit meeting needs. LBM 07/26. Phos 6.5 remaining elevated since admit; may benefit from binder if MD agreeable. No nutrition concerns at this time. Will continue to monitor. Rec: 1. continue renal/carb controlled diet 2. phos binder if MD agreeable; Phos 6.5 and over 6 since admit 3. bowel care as needed 4. wt per rx Addendum: 07/27/19 at [address] Amended: Links added.
[2019-07-27 13:08] LABS: ANTISTREPTOLYSIN O AB 56.4 IU/mL (0.0-200.0); COMPLEMENT C3, SERUM 116 mg/dL (82-167); COMPLEMENT C4, SERUM 25 mg/dL (14-44); HBSAG SCREEN Negative (Negative); HEPATITIS C ANTIBODY <0.1 s/co ratio (0.0-0.9); RPR Non Reactive (Non Reactive)
[2019-07-27] MEDS: metolazone 2.5mg tablet PO SCH ×2 (13:41→20:37)
[2019-07-27 15:00] VITALS: BP 131/65
--- NOTE | 2019-07-27 18:28 | NUR ---
Patient in room PCU 3013. I have received report from Alix FABIAN and had the opportunity to ask questions and assume patient care.
[2019-07-27 19:00] VITALS: BP 153/69
[2019-07-27] MEDS: VANCOmycin 1250MG/NS 250ml Bag 250 ML IV SCH (19:53)
[2019-07-27] MEDS: atorvastatin 20mg tablet PO SCH (20:36)
[2019-07-27] MEDS: insulin glargine (Lantus) pen - multi-dose SQ SCH (20:42)
[2019-07-27] MEDS ORDERED: ciprofloxacin 250mg tablet PO SCH (22:00)
[2019-07-27 23:00] VITALS: BP 141/71
[2019-07-28] MEDS: HYDROcodone/acetaminophen 10/325mg tab PO PRN (01:02)
[2019-07-28] MEDS: furosemide 40mg/4ml inj IV SCH ×4 (01:29→20:55)
[2019-07-28] MEDS: sodium bicarbonate (8.4%) inj. 75 MEQ in dextrose 5% water 500ml 500 ML IV SCH ×2 (01:36→19:20)
[2019-07-28 02:00] VITALS: BP 135/63
[2019-07-28] MEDS: ipratropium/albuterol 3ml nebule NEB SCH ×4 (03:00→20:10)
[2019-07-28 06:00] VITALS: BP 143/71
--- NOTE | 2019-07-28 06:15 | NUR ---
Patient in room PCU 3013. I have received report from RUI Glynn and had the opportunity to ask questions and assume patient care.
--- NOTE | 2019-07-28 06:24 | NUR ---
Problems reprioritized. Patient report given, questions answered & plan of care reviewed with Ofelia FABIAN.
[2019-07-28 06:33] LABS: BASOPHILS # (AUTO) 0.1 X10'3 (0-0.2); EOSINOPHILS # (AUTO) 0.7 X10'3 (0-0.9); HEMATOCRIT 23.5 % (35.0-45.0); HEMOGLOBIN 7.6 g/dl (12.0-16.0); LYMPHOCYTES # (AUTO) 1.2 X10'3 (1.1-4.8); LYMPHOCYTES % (AUTO) 13.1 % (21-51); MEAN CORPUSCULAR HEMOGLOBIN 28.2 PG (27.0-31.0); MEAN CORPUSCULAR HGB CONC 32.2 g/dL (33.0-36.5); MEAN CORPUSCULAR VOLUME 87.5 FL (78-98); MEAN PLATELET VOLUME 7.2 FL (7.4-10.4); MONOCYTES % (AUTO) 10.9 % (2-12); NEUTROPHILS # (AUTO) 6.2 X10'3 (1.8-7.7); PLATELET COUNT 342 X10'3 (140-440); RED BLOOD COUNT 2.68 X10'6 (4.20-5.60); RED CELL DISTRIBUTION WIDTH 16.9 % (11.5-14.5); WHITE BLOOD COUNT 9.2 X10'3 (4.5-11.0)
[2019-07-28 06:43] LABS: ALANINE AMINOTRANSFERASE 8 U/L (12-78); ALBUMIN 1.5 G/DL (3.4-5.0); ALBUMIN/GLOBULIN RATIO 0.3 (1.1-1.5); ALKALINE PHOSPHATASE 163 IU/L (46-116); ANION GAP 12 (8-16); ASPARTATE AMINO TRANSFERASE 10 U/L (10-37); BILIRUBIN,TOTAL 0.2 MG/DL (0.1-1.0); BLOOD UREA NITROGEN 47 MG/DL (7-18); BUN/CREATININE RATIO 17.3 (6.6-38.0); CALCIUM 7.8 MG/DL (8.5-10.1); CHLORIDE 109 MMOL/L (99-107); CREATININE 2.72 MG/DL (0.40-0.90); GLUCOSE 101 MG/DL (70-104); MAGNESIUM 1.5 MG/DL (1.5-2.4); PHOSPHORUS 6.1 MG/DL (2.3-4.5); POTASSIUM 3.3 MMOL/L (3.5-5.1); SODIUM 141 MMOL/L (135-145); TOTAL CARBON DIOXIDE 20.3 MMOL/L (24-32); TOTAL PROTEIN 6.3 G/DL (6.4-8.2); eGFR 18 ML/MIN
[2019-07-28] MEDS: NYSTATIN CREAM - 30GM TUBE TP SCH ×2 (08:00→20:00)
[2019-07-28] MEDS: terbinafine cream 30gm TP SCH ×2 (08:00→20:00)
[2019-07-28] MEDS: K and/or MAG REPLACEMENT MC SCH ×2 (08:00→20:00)
[2019-07-28] MEDS: budesonide 0.5mg/2ml UD nebule IH SCH ×2 (08:01→20:10)
[2019-07-28] MEDS: lactobacillus rhamnosus 10,000 MMU CELLS/CAPSULE PO SCH ×2 (08:09→20:55)
[2019-07-28] MEDS: amLODIPine 5mg tablet PO SCH (08:09)
[2019-07-28] MEDS: metoprolol succinate 25mg (24-HOUR) SR. Tablet PO SCH (08:10)
[2019-07-28] MEDS: sodium bicarbonate 650mg tablet PO SCH (08:10)
[2019-07-28] MEDS: lisinopril 20mg tablet PO SCH (08:11)
[2019-07-28] MEDS: metolazone 2.5mg tablet PO SCH ×2 (08:11→20:55)
[2019-07-28] MEDS: loratadine 10mg tablet PO SCH (08:11)
[2019-07-28] MEDS: sodium ferric gluc complex inj 125 MG in normal saline 100ml IV soln 100 ML IV SCH (08:29)
[2019-07-28] MEDS ORDERED: epoetin 20,000 units/ml inj SQ ONE (08:35)
[2019-07-28] MEDS ORDERED: potassium Cl 20 mEq SR tablet PO STA (09:31)
--- NOTE | 2019-07-28 09:34 | NUR ---
Contacted Dr. Montez regarding orders to replace pt K of 3.3, Telephone order for 1 tab of K-dur 20 mEq once. Asked about Bi-carb drip and oral Bi-carb and telephone order given to d/c oral Bi-carb of 650mg tab. Completed orders.
[2019-07-28 11:00] VITALS: BP 153/60
[2019-07-28] MEDS: acetaminophen 325mg tablet PO PRN (13:42)
--- NOTE | 2019-07-28 13:48 | NUR ---
Pt Haylee in rm 3013B. Needs new PIV, difficult stick. Thank you, Ofelia, RN PCU
[2019-07-28 15:00] VITALS: BP 141/66
[2019-07-28 18:00] VITALS: BP 144/69
--- NOTE | 2019-07-28 18:20 | NUR ---
Problems reprioritized. Patient report given, questions answered & plan of care reviewed with RUI Gibbs.
[2019-07-28] MEDS: VANCOmycin 1250MG/NS 250ml Bag 250 ML IV SCH (19:21)
[2019-07-28] MEDS: atorvastatin 20mg tablet PO SCH (20:55)
[2019-07-28] MEDS: insulin glargine (Lantus) pen - multi-dose SQ SCH (21:00)
[2019-07-28 22:00] VITALS: BP 141/63
[2019-07-29 02:00] VITALS: BP 133/66
[2019-07-29] MEDS: furosemide 40mg/4ml inj IV SCH ×2 (02:39→09:01)
[2019-07-29] MEDS: HYDROcodone/acetaminophen 5mg/325mg tablet PO PRN (02:39)
[2019-07-29] MEDS: ipratropium/albuterol 3ml nebule NEB SCH ×2 (03:00→08:50)
[2019-07-29 05:10] LABS: A/G RATIO 0.5 (0.7-1.7); ALBUMIN 2.1 g/dL (2.9-4.4); BETA GLOBULIN 0.9 g/dL (0.7-1.3); GAMMA GLOBULIN 2.1 g/dL (0.4-1.8); GLOBULIN, TOTAL 4.3 g/dL (2.2-3.9); M-SPIKE Not Observed g/dL (Not Observed); PROTEIN, TOTAL, SERUM 6.4 g/dL (6.0-8.5)
[2019-07-29 06:00] VITALS: BP 124/62
--- NOTE | 2019-07-29 06:25 | NUR ---
REPORT GIVEN TO DARIAN FABIAN
[2019-07-29] MEDS: sodium bicarbonate (8.4%) inj. 75 MEQ in dextrose 5% water 500ml 500 ML IV SCH (07:42)
[2019-07-29] MEDS: K and/or MAG REPLACEMENT MC SCH (08:00)
[2019-07-29] MEDS: NYSTATIN CREAM - 30GM TUBE TP SCH (08:00)
[2019-07-29] MEDS: terbinafine cream 30gm TP SCH (08:00)
[2019-07-29] MEDS: budesonide 0.5mg/2ml UD nebule IH SCH (08:50)
[2019-07-29] MEDS: lactobacillus rhamnosus 10,000 MMU CELLS/CAPSULE PO SCH (09:01)
[2019-07-29] MEDS: amLODIPine 5mg tablet PO SCH (09:01)
[2019-07-29] MEDS: loratadine 10mg tablet PO SCH (09:01)
[2019-07-29] MEDS: metoprolol succinate 25mg (24-HOUR) SR. Tablet PO SCH (09:02)
[2019-07-29] MEDS: lisinopril 20mg tablet PO SCH (09:04)
[2019-07-29] MEDS: metolazone 2.5mg tablet PO SCH (09:04)
[2019-07-29 10:01] LABS: BASOPHILS # (AUTO) 0.1 X10'3 (0-0.2); BASOPHILS % (AUTO) 1.2 % (0-1); EOSINOPHILS # (AUTO) 0.6 X10'3 (0-0.9); EOSINOPHILS % (AUTO) 6.9 % (0-6); HEMATOCRIT 25.3 % (35.0-45.0); LYMPHOCYTES # (AUTO) 1.2 X10'3 (1.1-4.8); LYMPHOCYTES % (AUTO) 12.9 % (21-51); MEAN CORPUSCULAR HGB CONC 31.6 g/dL (33.0-36.5); MEAN CORPUSCULAR VOLUME 88.6 FL (78-98); MEAN PLATELET VOLUME 7.6 FL (7.4-10.4); MONOCYTES % (AUTO) 11.1 % (2-12); NEUTROPHILS # (AUTO) 6.4 X10'3 (1.8-7.7); NEUTROPHILS % (AUTO) 67.9 % (42-75); PLATELET COUNT 321 X10'3 (140-440); RED BLOOD COUNT 2.86 X10'6 (4.20-5.60); RED CELL DISTRIBUTION WIDTH 17.3 % (11.5-14.5); WHITE BLOOD COUNT 9.3 X10'3 (4.5-11.0)
[2019-07-29 10:13] LABS: ALBUMIN 1.7 G/DL (3.4-5.0); ANION GAP 12 (8-16); BLOOD UREA NITROGEN 48 MG/DL (7-18); BUN/CREATININE RATIO 16.2 (6.6-38.0); CALCIUM 7.7 MG/DL (8.5-10.1); CHLORIDE 105 MMOL/L (99-107); CREATININE 2.97 MG/DL (0.40-0.90); GLUCOSE 162 MG/DL (70-104); MAGNESIUM 1.5 MG/DL (1.5-2.4); PHOSPHORUS 6.1 MG/DL (2.3-4.5); POTASSIUM 3.8 MMOL/L (3.5-5.1); SODIUM 140 MMOL/L (135-145); TOTAL CARBON DIOXIDE 22.6 MMOL/L (24-32); eGFR 16 ML/MIN
[2019-07-29 11:00] VITALS: BP 134/63
[2019-07-29] MEDS ORDERED: FURO-150 PO (11:16)
[2019-07-29] MEDS ORDERED: LACT1CAP26 PO (11:16)
[2019-07-29] MEDS ORDERED: LINE600T12 PO (11:16)
[2019-07-29] MEDS ORDERED: ZAR2.5T PO (11:16)
[2019-07-29] MEDS ORDERED: SODI650T29 PO (11:20)
[2019-07-29] MEDS ORDERED: FURO40TA4 PO (11:21)
[2019-07-29 15:00] VITALS: BP 116/56
[2019-07-29 15:12] LABS: ANTINUCLEAR ANTIBODIES Negative (Negative)
[2019-07-29] MEDS ORDERED: VANCOMYCIN LEVEL IV ONE (17:30)
[2019-07-30 08:11] LABS: ATYPICAL PANCA <1:20 titer (Neg:<1:20); CYTOPLASMIC (C-ANCA) <1:20 titer (Neg:<1:20); PERINUCLEAR (P-ANCA) <1:20 titer (Neg:<1:20)
== END 2019-07-29 14:58 | disposition home health service (06) | DRG 663 ==
LOC: ER 12:13 → ED HOLD 15:31 → PCU 3S 17:40
PROVIDERS: ADMIT Family Medicine; ATTEND Family Medicine
PROC: 30233N1 Transfusion of Nonautologous Red Blood Cells into Peripheral Vein, Percutaneous Approach (ICD-10-PCS; principal; 2019-07-23)
DX: D64.89 Other specified anemias (principal); I50.33 Acute on chronic diastolic (congestive) heart failure; E11.22 Type 2 diabetes mellitus with diabetic chronic kidney disease; E87.2 Acidosis; E11.36 Type 2 diabetes mellitus with diabetic cataract; I13.0 Hypertensive heart and chronic kidney disease with heart failure and stage 1 through stage 4 chronic kidney disease, or unspecified chronic kidney disease; E78.00 Pure hypercholesterolemia, unspecified; E78.5 Hyperlipidemia, unspecified; B95.62 Methicillin resistant Staphylococcus aureus infection as the cause of diseases classified elsewhere; B96.20 Unspecified Escherichia coli [E. coli] as the cause of diseases classified elsewhere; D63.1 Anemia in chronic kidney disease; J44.9 Chronic obstructive pulmonary disease, unspecified; N18.4 Chronic kidney disease, stage 4 (severe); N39.0 Urinary tract infection, site not specified; Z82.49 Family history of ischemic heart disease and other diseases of the circulatory system; Z87.11 Personal history of peptic ulcer disease; Z87.891 Personal history of nicotine dependence; Z79.899 Other long term (current) drug therapy
CPT/HCPCS: 36415; 36430; 71045; 76775; 76937; 80048; 80053; 80061; 81001; 82272; 82570; 82607; 82728; 82948; 83036; 83540; 83550; 83615; 83735; 83880; 84100; 84155; 84156; 84165; 84300; 84443; 85025; 85027; 85610; 85651; 86038; 86060; 86160; 86256; 86430; 86592; 86803; 86885; 86900; 86901; 86920; 87077; 87081; 87088; 87186; 87207; 87340; 93005; 93306; 93970; 94640; 94760; 97110; 97116; 97162; 97530; 99291; G0378; J0696; J1815; J1940; J2405; J2916; J3370; J7030; J7626; P9016; Q4081

== ENCOUNTER 2019-08-06 11:04 | Inpatient (IN) | payer MEDICAID ==
[~2019-08-06] VITALS: Ht 170.2 cm; Wt 77.0 kg
[2019-08-06] MEDS: K and/or MAG REPLACEMENT MC SCH ×2 (06:00→08:00)
[~2019-08-06 11:04] MED LIST changes: +ACET325T55 PO; +DOCU-148 PO; +FURO40TA4 PO; +LACT1CAP26 PO; +LINE600T12 PO; +METO-539 PO; +SODI650T29 PO; +TRIA15CR61 TOP
[2019-08-06] MEDS ORDERED: fentaNYL/PF 50MCG/1 ML 2ML syringe IM ONE (12:35)
[2019-08-06] MEDS ORDERED: HYDROcodone/acetaminophen 5mg/325mg tablet PO ONE (12:35)
[2019-08-06 13:09] LABS: BASOPHILS # (AUTO) 0.1 X10'3 (0-0.2); BASOPHILS % (AUTO) 1.4 % (0-1); EOSINOPHILS # (AUTO) 0.1 X10'3 (0-0.9); HEMATOCRIT 29.4 % (35.0-45.0); HEMOGLOBIN 9.2 g/dl (12.0-16.0); MEAN CORPUSCULAR HEMOGLOBIN 27.7 PG (27.0-31.0); MEAN CORPUSCULAR HGB CONC 31.2 g/dL (33.0-36.5); MEAN CORPUSCULAR VOLUME 88.7 FL (78-98); MONOCYTES # (AUTO) 0.5 X10'3 (0-0.9); NEUTROPHILS # (AUTO) 6.7 X10'3 (1.8-7.7); NEUTROPHILS % (AUTO) 79.6 % (42-75); PLATELET COUNT 272 X10'3 (140-440); RED BLOOD COUNT 3.32 X10'6 (4.20-5.60); RED CELL DISTRIBUTION WIDTH 17.9 % (11.5-14.5); WHITE BLOOD COUNT 8.4 X10'3 (4.5-11.0)
[2019-08-06 13:14] LABS: ALANINE AMINOTRANSFERASE 11 U/L (12-78); ALBUMIN/GLOBULIN RATIO 0.3 (1.1-1.5); ALKALINE PHOSPHATASE 239 IU/L (46-116); ANION GAP 10 (8-16); ASPARTATE AMINO TRANSFERASE 17 U/L (10-37); BILIRUBIN,TOTAL 0.5 MG/DL (0.1-1.0); BLOOD UREA NITROGEN 40 MG/DL (7-18); BUN/CREATININE RATIO 11.4 (6.6-38.0); CALCIUM 8.7 MG/DL (8.5-10.1); CHLORIDE 104 MMOL/L (99-107); GLUCOSE 93 MG/DL (70-104); MAGNESIUM 1.9 MG/DL (1.5-2.4); POTASSIUM 4.6 MMOL/L (3.5-5.1); SODIUM 139 MMOL/L (135-145); TOTAL CARBON DIOXIDE 25.5 MMOL/L (24-32); TOTAL PROTEIN 8.4 G/DL (6.4-8.2); eGFR 13 ML/MIN
[2019-08-06] MEDS ORDERED: naloxone 2mg/2ml inj IM STA (14:14)
--- NOTE | 2019-08-06 14:46 | NUR ---
Kamron tinsley in [facility] - 08/06/19 at 1448 by [email or web address] manager social responsibility at bedside, given food
[2019-08-06 14:59] LABS: D-DIMER 2.03 MG/L FEU (0-0.50)
[2019-08-06 15:31] LABS: ABG BASE EXCESS -0.5 mmol/L (-2.0-3.0); ABG HCO3 23.9 mmol/L (22.0-26.0); ABG PCO2 (T) 37.8 mmHg (35.0-45.0); ABG PH (T) 7.418 (7.350-7.450); ABG PO2 (T) 64.5 mmHg (83-108); FCOHb 0.6 % (0.5-1.5); FLOW 3 L/min; FMetHb 0.1 % (0.3-1.12); FO2Hb 91.4 % (94-100)
[2019-08-06] MEDS ORDERED: SODI650T29 PO (18:51)
[2019-08-06] MEDS ORDERED: ZAR2.5T PO (18:51)
[2019-08-06] MEDS ORDERED: FURO-149 PO (18:51)
[2019-08-06] MEDS ORDERED: ondansetron/PF 4mg/2ml inj IV PRN (21:20)
[2019-08-06] MEDS ORDERED: mag hydrox/Alum hydrox/simeth 30ml oral suspension PO PRN (21:20)
[2019-08-06] MEDS ORDERED: acetaminophen 325mg tablet PO PRN ×2 (21:20→21:25)
[2019-08-06] MEDS ORDERED: heparin 25,000 UNIT/250ml bag 250 ML IV SCH (21:22)
[2019-08-06] MEDS ORDERED: docusate sod 100mg capsule PO PRN (21:25)
[2019-08-06] MEDS ORDERED: dextrose ORAL solution 15 GM/59 ML bottle PO PRN ×2 (21:25)
[2019-08-06] MEDS ORDERED: heparin 10,000 units/1 ML INJ IV PRN (21:25)
[2019-08-06] MEDS ORDERED: glucagon, human recombinant 1mg kit SUBCUT PRN (21:25)
[2019-08-06] MEDS ORDERED: heparin 10,000 units/1 ML INJ IV ONE (21:25)
[2019-08-06] MEDS ORDERED: MESSAGE TO PHARMACY PO ONE (21:25)
[2019-08-06] MEDS ORDERED: dextrose 50%-water 50ml dispensing syringe IV PRN ×2 (21:25)
[2019-08-06] MEDS ORDERED: insulin Lispro (HumaLOG) vial - multi-dose SQ SCH (21:25)
[2019-08-06] MEDS ORDERED: potassium CL 10mEq/100ml bag 100 ML IV PRN (21:30)
[2019-08-06] MEDS ORDERED: potassium Cl 20 mEq SR tablet PO PRN ×2 (21:30)
[2019-08-06] MEDS: normal saline 1000ml 1,000 ML IV SCH (21:53)
--- NOTE | 2019-08-06 22:30 | NUR ---
PT TAKEN TO THE FLOOR ROOM 3020 A . REPORTED TO RUI VASQUEZ THAT HEPRIN NEEDS TO BE GIVEN . INR 1.5 PTT 54 PT 15.1
--- NOTE | 2019-08-06 22:30 | NUR ---
pt arrived to PCU unit from ER via gurney, pt transferred to hospital bed via slideboard, pt A&O x4, not in any respiratory distress at this time. stating good on 3L NC, BLE painful to touch, will continue to monitor
[2019-08-06 22:35] VITALS: BP 155/75
[2019-08-06] MEDS: HYDROcodone/acetaminophen 5mg/325mg tablet PO PRN (23:22)
[2019-08-07] VITALS (7 sets, daily range): BP systolic 109–145; BP diastolic 57–75
[2019-08-07 01:38] LABS: PARTIAL THROMBOPLASTIN TIME 86 SECONDS (22-32)
--- NOTE | 2019-08-07 01:50 | NUR ---
PTT is 86, decreased heparin GTT to 14, will continue to monitor pt closely
[2019-08-07] MEDS: albuterol 2.5 MG/3 ML nebule NEB SCH ×6 (03:29→23:43)
[2019-08-07 05:19] LABS: BASOPHILS # (AUTO) 0.1 X10'3 (0-0.2); BASOPHILS % (AUTO) 1.3 % (0-1); EOSINOPHILS # (AUTO) 0.3 X10'3 (0-0.9); EOSINOPHILS % (AUTO) 3.1 % (0-6); HEMATOCRIT 25.9 % (35.0-45.0); HEMOGLOBIN 8.2 g/dl (12.0-16.0); LYMPHOCYTES # (AUTO) 1.3 X10'3 (1.1-4.8); LYMPHOCYTES % (AUTO) 15.4 % (21-51); MEAN CORPUSCULAR HEMOGLOBIN 28.5 PG (27.0-31.0); MEAN CORPUSCULAR HGB CONC 31.7 g/dL (33.0-36.5); MEAN PLATELET VOLUME 6.6 FL (7.4-10.4); MONOCYTES # (AUTO) 0.5 X10'3 (0-0.9); MONOCYTES % (AUTO) 6.6 % (2-12); NEUTROPHILS % (AUTO) 73.6 % (42-75); PLATELET COUNT 224 X10'3 (140-440); RED BLOOD COUNT 2.88 X10'6 (4.20-5.60); RED CELL DISTRIBUTION WIDTH 18.2 % (11.5-14.5); WHITE BLOOD COUNT 8.2 X10'3 (4.5-11.0)
[2019-08-07 05:44] LABS: ALANINE AMINOTRANSFERASE 10 U/L (12-78); ALBUMIN 1.6 G/DL (3.4-5.0); ALBUMIN/GLOBULIN RATIO 0.3 (1.1-1.5); ALKALINE PHOSPHATASE 199 IU/L (46-116); ANION GAP 12 (8-16); ASPARTATE AMINO TRANSFERASE 22 U/L (10-37); BILIRUBIN,TOTAL 0.4 MG/DL (0.1-1.0); BLOOD UREA NITROGEN 40 MG/DL (7-18); BUN/CREATININE RATIO 11.6 (6.6-38.0); CHLORIDE 105 MMOL/L (99-107); CREATININE 3.45 MG/DL (0.40-0.90); GLUCOSE 93 MG/DL (70-104); MAGNESIUM 1.8 MG/DL (1.5-2.4); POTASSIUM 3.8 MMOL/L (3.5-5.1); SODIUM 142 MMOL/L (135-145); TOTAL CARBON DIOXIDE 25.2 MMOL/L (24-32); TOTAL PROTEIN 7.1 G/DL (6.4-8.2); eGFR 13 ML/MIN
--- NOTE | 2019-08-07 06:09 | NUR ---
Problems reprioritized. Patient report given, questions answered & plan of care reviewed with Susan FABIAN.
--- NOTE | 2019-08-07 06:09 | NUR ---
Patient in room PCU 3020. I have received report from Grace FABIAN and had the opportunity to ask questions and assume patient care.
[2019-08-07] MEDS: sodium bicarbonate 650mg tablet PO SCH ×3 (07:39→20:18)
[2019-08-07] MEDS: metoprolol succinate 25mg (24-HOUR) SR. Tablet PO SCH (07:39)
[2019-08-07] MEDS: loratadine 10mg tablet PO SCH (07:39)
[2019-08-07] MEDS: amLODIPine 5mg tablet PO SCH (07:39)
[2019-08-07] MEDS: HYDROcodone/acetaminophen 5mg/325mg tablet PO PRN ×2 (07:39→20:19)
[2019-08-07] MEDS: K and/or MAG REPLACEMENT MC SCH ×2 (07:43→19:13)
[2019-08-07] MEDS: budesonide 0.5mg/2ml UD nebule IH SCH ×2 (07:47→19:43)
[2019-08-07] MEDS ORDERED: furosemide 40mg tablet PO SCH (08:00)
--- NOTE | 2019-08-07 08:05 | NUR ---
Called down to lab about someone coming up to draw this patients timed DVT aPTT lab, stated that it is change of shift for them and someone should be coming up, will continue to monitor the patient closely.
--- NOTE | 2019-08-07 08:30 | NUR ---
Lab came to draw the patients aPTT lab, patient was in lots of pain and stated she needed a couple minutes, that she wasn't ready for the lab draw at this time. Lab stated that they were going to draw labs on another person and then would come back to this patient. Will continue to monitor closely.
--- NOTE | 2019-08-07 09:18 | NUR ---
Spoke with Dr West, received orders to discontinue the V/Q scan, change lasix from PO to IV and to stop the heparin gtt. will continue to monitor the patient closely.
[2019-08-07] MEDS ORDERED: gabapentin 300mg capsule PO SCH (09:25)
--- NOTE | 2019-08-07 09:25 | NUR ---
Spoke with Dr West again, received verbal orders to start the patient on gabapentin and get a PT eval/treat order. Will continue to monitor the patient closely.
--- NOTE | 2019-08-07 15:20 | NUR ---
Respiratory left the patient on 8L face mask after giving breathing treatment, called RT to confirm patients settings. Spoke with the RT and she stated that due to the patients mouth breathing nasal canula wasn't working, will continue to monitor very closely.
--- NOTE | 2019-08-07 15:26 | NUR ---
Sent a page to Dr West re patients temperature, will continue to monitor closely. PAGER ID: [phone] MESSAGE: Susan FABIAN [phone] D SUE Leach temperature 101.4, gave audrey Bolanos, thanks Addendum: 08/07/19 at 1530 by Katelyn Singer RN Spoke with Dr West, received orders via telephone for a UA and blood cultures
[2019-08-07] MEDS: normal saline 1000ml 1,000 ML IV SCH (15:49)
--- NOTE | 2019-08-07 17:54 | NUR ---
Patient breathing through mouth, poor O2 saturations with nasal canula, on 6L face mask due to mouth breathing. Will continue to monitor closely.
--- NOTE | 2019-08-07 18:14 | NUR ---
Problems reprioritized. Patient report given, questions answered & plan of care reviewed with Mary FABIAN.
[2019-08-07 18:46] LABS: CLARITY,URINE SLIGHTLY CLOUDY (Clear); COLOR,URINE YELLOW (Yellow); GLUCOSE, URINE 250 mg/dl (Neg); KETONES,URINE NEGATIVE (Neg); LEUKOCYTE ESTERASE ,URINE NEGATIVE (Neg); NITRITES, URINE NEGATIVE (Neg); OCCULT BLOOD,URINE MODERATE (Neg); PROTEIN,URINE >=300 mg/dl (Neg); UROBILINOGEN,URINE 0.2 E.U/dL (0.2-1.0)
[2019-08-07 18:51] LABS: UA COLLECTION TYPE NON-SPECIFIED
[2019-08-07 18:53] LABS: BACTERIA,URINE NONE SEEN /HPF (Neg); RBC,URINE NONE SEEN /HPF (0-2)
[2019-08-07 18:54] LABS: FINE GRANULAR CAST 0-3 /LPF (NEGATIVE); RENAL CELLS, URINE MANY /HPF; SQUAMOUS EPITHELIAL CELL,UR FEW /LPF (FEW)
[2019-08-07] MEDS: furosemide 40mg/4ml inj IV SCH (20:18)
[2019-08-07] MEDS: atorvastatin 20mg tablet PO SCH (20:19)
[2019-08-07] MEDS: insulin glargine (Lantus) pen - multi-dose SQ SCH (21:00)
--- NOTE | 2019-08-08 00:11 | NUR ---
Patient placed back on the simple mask at 6 liters for sats down in the 80's.
[2019-08-08 02:00] VITALS: BP 131/64
[2019-08-08] MEDS: HYDROcodone/acetaminophen 5mg/325mg tablet PO PRN ×4 (02:47→21:07)
[2019-08-08] MEDS: albuterol 2.5 MG/3 ML nebule NEB SCH ×6 (03:00→23:20)
[2019-08-08 05:18] LABS: BASOPHILS # (AUTO) 0.1 X10'3 (0-0.2); BASOPHILS % (AUTO) 0.9 % (0-1); EOSINOPHILS # (AUTO) 0.3 X10'3 (0-0.9); EOSINOPHILS % (AUTO) 3.1 % (0-6); HEMATOCRIT 23.5 % (35.0-45.0); HEMOGLOBIN 7.4 g/dl (12.0-16.0); LYMPHOCYTES % (AUTO) 10.5 % (21-51); MEAN CORPUSCULAR HEMOGLOBIN 28.5 PG (27.0-31.0); MEAN CORPUSCULAR HGB CONC 31.6 g/dL (33.0-36.5); MEAN CORPUSCULAR VOLUME 90.1 FL (78-98); MEAN PLATELET VOLUME 7.1 FL (7.4-10.4); MONOCYTES # (AUTO) 0.8 X10'3 (0-0.9); MONOCYTES % (AUTO) 8.1 % (2-12); NEUTROPHILS # (AUTO) 7.3 X10'3 (1.8-7.7); NEUTROPHILS % (AUTO) 77.4 % (42-75); PLATELET COUNT 186 X10'3 (140-440); RED CELL DISTRIBUTION WIDTH 18.1 % (11.5-14.5); WHITE BLOOD COUNT 9.4 X10'3 (4.5-11.0)
[2019-08-08 05:29] LABS: ALANINE AMINOTRANSFERASE 12 U/L (12-78); ALBUMIN 1.5 G/DL (3.4-5.0); ALBUMIN/GLOBULIN RATIO 0.3 (1.1-1.5); ALKALINE PHOSPHATASE 178 IU/L (46-116); ANION GAP 7 (8-16); ASPARTATE AMINO TRANSFERASE 17 U/L (10-37); BILIRUBIN,TOTAL 0.2 MG/DL (0.1-1.0); BLOOD UREA NITROGEN 45 MG/DL (7-18); BUN/CREATININE RATIO 12.9 (6.6-38.0); CHLORIDE 107 MMOL/L (99-107); GLUCOSE 142 MG/DL (70-104); MAGNESIUM 1.8 MG/DL (1.5-2.4); POTASSIUM 3.8 MMOL/L (3.5-5.1); SODIUM 142 MMOL/L (135-145); TOTAL CARBON DIOXIDE 27.8 MMOL/L (24-32); TOTAL PROTEIN 6.8 G/DL (6.4-8.2); eGFR 13 ML/MIN
--- NOTE | 2019-08-08 06:15 | NUR ---
Patient in room PCU 3020. I have received report from RUI Hernandez and had the opportunity to ask questions and assume patient care.
--- NOTE | 2019-08-08 06:17 | NUR ---
Problems reprioritized. Patient report given, questions answered & plan of care reviewed with Paulette RN.
[2019-08-08 06:30] VITALS: BP 140/70
--- NOTE | 2019-08-08 06:30 | NUR ---
Pt refused VS check
[2019-08-08] MEDS: K and/or MAG REPLACEMENT MC SCH ×2 (07:10→20:00)
[2019-08-08] MEDS: budesonide 0.5mg/2ml UD nebule IH SCH ×2 (07:22→19:41)
[2019-08-08] MEDS: metoprolol succinate 25mg (24-HOUR) SR. Tablet PO SCH (08:44)
[2019-08-08] MEDS: gabapentin 300mg capsule PO SCH (08:44)
[2019-08-08] MEDS: amLODIPine 5mg tablet PO SCH (08:44)
[2019-08-08] MEDS: furosemide 40mg/4ml inj IV SCH ×2 (08:45→19:57)
[2019-08-08] MEDS: sodium bicarbonate 650mg tablet PO SCH ×3 (08:45→19:57)
[2019-08-08] MEDS: loratadine 10mg tablet PO SCH (08:45)
[2019-08-08 11:00] VITALS: BP 129/61
[2019-08-08] MEDS ORDERED: heparin 25,000 UNIT/250ml bag 250 ML IV SCH (12:39)
[2019-08-08] MEDS ORDERED: heparin 10,000 units/1 ML INJ IV PRN (12:40)
[2019-08-08] MEDS ORDERED: heparin 10,000 units/1 ML INJ IV ONE ×2 (12:40→13:10)
[2019-08-08] MEDS: apixaban 5mg tablet PO SCH ×2 (13:33→19:57)
[2019-08-08 15:00] VITALS: BP 128/62
--- NOTE | 2019-08-08 18:20 | NUR ---
Problems reprioritized. Patient report given, questions answered & plan of care reviewed with RUI Stiles.
[2019-08-08 19:00] VITALS: BP 123/56
[2019-08-08] MEDS: atorvastatin 20mg tablet PO SCH (19:57)
[2019-08-08] MEDS: insulin glargine (Lantus) pen - multi-dose SQ SCH (21:00)
[2019-08-08 22:00] VITALS: BP 125/62
[2019-08-09 02:00] VITALS: BP 120/61
[2019-08-09] MEDS: HYDROcodone/acetaminophen 5mg/325mg tablet PO PRN ×3 (02:51→13:00)
[2019-08-09] MEDS: albuterol 2.5 MG/3 ML nebule NEB SCH ×6 (03:00→23:22)
[2019-08-09 06:03] LABS: BASOPHILS # (AUTO) 0.1 X10'3 (0-0.2); BASOPHILS % (AUTO) 0.7 % (0-1); EOSINOPHILS # (AUTO) 0.5 X10'3 (0-0.9); EOSINOPHILS % (AUTO) 4.1 % (0-6); HEMATOCRIT 23.4 % (35.0-45.0); HEMOGLOBIN 7.2 g/dl (12.0-16.0); LYMPHOCYTES # (AUTO) 1.1 X10'3 (1.1-4.8); LYMPHOCYTES % (AUTO) 9.3 % (21-51); MEAN CORPUSCULAR HEMOGLOBIN 27.6 PG (27.0-31.0); MEAN CORPUSCULAR HGB CONC 30.7 g/dL (33.0-36.5); MEAN PLATELET VOLUME 7.2 FL (7.4-10.4); MONOCYTES # (AUTO) 1.2 X10'3 (0-0.9); MONOCYTES % (AUTO) 10.4 % (2-12); NEUTROPHILS # (AUTO) 8.6 X10'3 (1.8-7.7); NEUTROPHILS % (AUTO) 75.5 % (42-75); PLATELET COUNT 196 X10'3 (140-440); WHITE BLOOD COUNT 11.4 X10'3 (4.5-11.0)
--- NOTE | 2019-08-09 06:10 | NUR ---
Patient in room PCU 3020. I have received report from RUI Stiles and had the opportunity to ask questions and assume patient care.
--- NOTE | 2019-08-09 06:16 | NUR ---
Problems reprioritized. Patient report given, questions answered & plan of care reviewed with Paulette De. Addendum: 08/09/19 at 0617 by Linsey Herrmann RN Amended: Links added.
[2019-08-09 06:30] VITALS: BP 123/59
[2019-08-09 06:34] LABS: ALANINE AMINOTRANSFERASE 15 U/L (12-78); ALBUMIN 1.5 G/DL (3.4-5.0); ALBUMIN/GLOBULIN RATIO 0.3 (1.1-1.5); ALKALINE PHOSPHATASE 213 IU/L (46-116); ANION GAP 8 (8-16); ASPARTATE AMINO TRANSFERASE 21 U/L (10-37); BILIRUBIN,TOTAL 0.2 MG/DL (0.1-1.0); BLOOD UREA NITROGEN 50 MG/DL (7-18); BUN/CREATININE RATIO 12.9 (6.6-38.0); CALCIUM 7.8 MG/DL (8.5-10.1); CHLORIDE 105 MMOL/L (99-107); CREATININE 3.89 MG/DL (0.40-0.90); GLUCOSE 149 MG/DL (70-104); MAGNESIUM 1.8 MG/DL (1.5-2.4); POTASSIUM 4.1 MMOL/L (3.5-5.1); SODIUM 141 MMOL/L (135-145); TOTAL CARBON DIOXIDE 27.6 MMOL/L (24-32); eGFR 12 ML/MIN
[2019-08-09] MEDS: K and/or MAG REPLACEMENT MC SCH ×2 (07:07→19:30)
[2019-08-09] MEDS: budesonide 0.5mg/2ml UD nebule IH SCH ×2 (07:25→20:05)
[2019-08-09] MEDS: magnesium hydroxide 30ml (MOM) UD suspension PO PRN (08:32)
[2019-08-09] MEDS: furosemide 40mg/4ml inj IV SCH ×2 (08:33→19:30)
[2019-08-09] MEDS: apixaban 5mg tablet PO SCH ×2 (08:33→19:30)
[2019-08-09] MEDS: sodium bicarbonate 650mg tablet PO SCH ×3 (08:33→20:51)
[2019-08-09] MEDS: loratadine 10mg tablet PO SCH (08:33)
[2019-08-09] MEDS: metoprolol succinate 25mg (24-HOUR) SR. Tablet PO SCH (08:33)
[2019-08-09] MEDS: gabapentin 300mg capsule PO SCH (08:33)
[2019-08-09] MEDS: amLODIPine 5mg tablet PO SCH (08:33)
[2019-08-09 11:00] VITALS: BP 104/68
[2019-08-09] MEDS ORDERED: magnesium 4gm in 100ml NS 100 ML IV ONE (13:45)
[2019-08-09 15:00] VITALS: BP 115/57
[2019-08-09] MEDS ORDERED: sodium ferric gluc complex inj 125 MG in normal saline 100ml IV soln 100 ML IV SCH (15:00)
[2019-08-09 17:20] LABS: % IRON SATURATION 10 % (11-46); IRON 13 UG/DL (49-151); TOTAL IRON BINDING CAPACITY 124 UG/DL (259-388)
[2019-08-09 18:00] VITALS: BP 118/59
--- NOTE | 2019-08-09 18:20 | NUR ---
Problems reprioritized. Patient report given, questions answered & plan of care reviewed with RUI Mao.
[2019-08-09] MEDS: sodium ferric gluc complex inj 125 MG in normal saline 100ml IV soln 100 ML IV SCH (19:29)
[2019-08-09] MEDS: atorvastatin 20mg tablet PO SCH (20:51)
[2019-08-09] MEDS: pramipexole 0.25mg tablet PO SCH (20:52)
[2019-08-09] MEDS: insulin glargine (Lantus) pen - multi-dose SQ SCH (21:00)
[2019-08-09 22:00] VITALS: BP 125/62
[2019-08-10 02:00] VITALS: BP 121/61
[2019-08-10] MEDS: HYDROcodone/acetaminophen 5mg/325mg tablet PO PRN ×2 (02:08→09:22)
[2019-08-10] MEDS: albuterol 2.5 MG/3 ML nebule NEB SCH ×6 (03:59→23:23)
--- NOTE | 2019-08-10 04:06 | NUR ---
PAGER ID: [phone] MESSAGE: [id number]: Megan Leach: 64 F Dx : Jeffy leg pain; legs very tender that pt doesn' want to use the commode/bed chávez to urinate. Bladder scan shows 878 ml. Do you want to order straight cath or valentin? RUI larson x [phone]
--- NOTE | 2019-08-10 04:20 | NUR ---
Received an order from Dr. Benz for indwelling catheter. Order carried out. 16 F catheter inserted using aseptic technique. Bulb inflated with 10 ml sterile saline. Catheter secured to right inner thigh. 900 ml clear urine return noted in the bag. Pt voiced discomfort, but tolerated the procedure.
--- NOTE | 2019-08-10 06:10 | NUR ---
Patient in room PCU 3020. I have received report from RUI Mao and had the opportunity to ask questions and assume patient care.
--- NOTE | 2019-08-10 06:13 | NUR ---
Problems reprioritized. Patient report given, questions answered & plan of care reviewed with RUI Caldwell.
[2019-08-10 06:30] VITALS: BP 123/54
[2019-08-10 07:12] LABS: BASOPHILS # (AUTO) 0.1 X10'3 (0-0.2); BASOPHILS % (AUTO) 0.5 % (0-1); EOSINOPHILS # (AUTO) 0.3 X10'3 (0-0.9); EOSINOPHILS % (AUTO) 2.6 % (0-6); HEMATOCRIT 23.6 % (35.0-45.0); HEMOGLOBIN 7.4 g/dl (12.0-16.0); LYMPHOCYTES # (AUTO) 0.8 X10'3 (1.1-4.8); MEAN CORPUSCULAR HEMOGLOBIN 28.2 PG (27.0-31.0); MEAN CORPUSCULAR HGB CONC 31.3 g/dL (33.0-36.5); MEAN CORPUSCULAR VOLUME 90.4 FL (78-98); MEAN PLATELET VOLUME 6.8 FL (7.4-10.4); MONOCYTES # (AUTO) 1.3 X10'3 (0-0.9); MONOCYTES % (AUTO) 11.4 % (2-12); NEUTROPHILS # (AUTO) 9.3 X10'3 (1.8-7.7); NEUTROPHILS % (AUTO) 78.5 % (42-75); PLATELET COUNT 229 X10'3 (140-440); RED BLOOD COUNT 2.62 X10'6 (4.20-5.60); RED CELL DISTRIBUTION WIDTH 17.8 % (11.5-14.5); WHITE BLOOD COUNT 11.9 X10'3 (4.5-11.0)
[2019-08-10] MEDS: budesonide 0.5mg/2ml UD nebule IH SCH ×2 (07:14→19:52)
[2019-08-10 07:33] LABS: ALANINE AMINOTRANSFERASE 17 U/L (12-78); ALBUMIN 1.6 G/DL (3.4-5.0); ALBUMIN/GLOBULIN RATIO 0.3 (1.1-1.5); ALKALINE PHOSPHATASE 262 IU/L (46-116); ANION GAP 6 (8-16); ASPARTATE AMINO TRANSFERASE 21 U/L (10-37); BILIRUBIN,TOTAL 0.2 MG/DL (0.1-1.0); BLOOD UREA NITROGEN 55 MG/DL (7-18); CALCIUM 8.2 MG/DL (8.5-10.1); CHLORIDE 104 MMOL/L (99-107); CREATININE 3.93 MG/DL (0.40-0.90); GLUCOSE 154 MG/DL (70-104); MAGNESIUM 2.9 MG/DL (1.5-2.4); POTASSIUM 4.6 MMOL/L (3.5-5.1); SODIUM 140 MMOL/L (135-145); TOTAL CARBON DIOXIDE 29.8 MMOL/L (24-32); TOTAL PROTEIN 7.2 G/DL (6.4-8.2); eGFR 12 ML/MIN
[2019-08-10] MEDS: K and/or MAG REPLACEMENT MC SCH ×2 (08:00→20:00)
[2019-08-10] MEDS: apixaban 5mg tablet PO SCH ×2 (09:21→20:00)
[2019-08-10] MEDS: magnesium hydroxide 30ml (MOM) UD suspension PO PRN (09:21)
[2019-08-10] MEDS: furosemide 40mg/4ml inj IV SCH ×2 (09:21→20:00)
[2019-08-10] MEDS: sodium bicarbonate 650mg tablet PO SCH ×3 (09:21→21:39)
[2019-08-10] MEDS: metoprolol succinate 25mg (24-HOUR) SR. Tablet PO SCH (09:21)
[2019-08-10] MEDS: gabapentin 300mg capsule PO SCH (09:21)
[2019-08-10] MEDS: amLODIPine 5mg tablet PO SCH (09:21)
[2019-08-10] MEDS: loratadine 10mg tablet PO SCH (09:21)
[2019-08-10] MEDS: sodium ferric gluc complex inj 125 MG in normal saline 100ml IV soln 100 ML IV SCH (09:23)
[2019-08-10 11:00] VITALS: BP 107/56
[2019-08-10] MEDS ORDERED: bisacodyl 10mg suppository rectal RC PRN (11:50)
--- NOTE | 2019-08-10 13:49 | NUR ---
Initial: Pt admit w/ increasing bilateral leg pain DX bilateral pleural effusions, metabolic acidosis, CKD IV, DM nephropathy, and iron deficiency anemia. PO 75-100% avg meals w/ 100% PO past 3 days meeting needs. LBM 08/06 received PRN MoM today w/ colace BID PRN ordered. May benefit from routine bowel care since receiving iron. No nutrition concerns at this time. Will continue to monitor. Rec: 1. continue carb controlled diet 2. routine bowel care 3. scaled wts Addendum: 08/10/19 at [address] Amended: Links added.
[2019-08-10] MEDS: HYDROcodone/acetaminophen 5mg/325mg tablet PO SCH ×2 (14:24→20:01)
[2019-08-10 15:00] VITALS: BP 110/51
[2019-08-10] MEDS ORDERED: lactulose 20gm/30ml cup PO ONE (17:35)
--- NOTE | 2019-08-10 18:35 | NUR ---
Problems reprioritized. Patient report given, questions answered & plan of care reviewed with RUI Henry.
[2019-08-10 19:00] VITALS: BP 118/61
[2019-08-10] MEDS ORDERED: lactulose 20gm/30ml cup PO SCH (21:00)
[2019-08-10] MEDS: insulin glargine (Lantus) pen - multi-dose SQ SCH (21:00)
[2019-08-10] MEDS: pramipexole 0.25mg tablet PO SCH (21:39)
[2019-08-10] MEDS: atorvastatin 20mg tablet PO SCH (21:39)
[2019-08-10 23:00] VITALS: BP 118/61
[2019-08-11] MEDS: HYDROcodone/acetaminophen 5mg/325mg tablet PO SCH ×3 (02:48→13:45)
[2019-08-11 03:00] VITALS: BP 138/96
[2019-08-11] MEDS: albuterol 2.5 MG/3 ML nebule NEB SCH ×3 (03:30→11:30)
[2019-08-11 06:25] LABS: ALANINE AMINOTRANSFERASE 18 U/L (12-78); ALBUMIN 1.4 G/DL (3.4-5.0); ALBUMIN/GLOBULIN RATIO 0.3 (1.1-1.5); ALKALINE PHOSPHATASE 292 IU/L (46-116); ANION GAP 6 (8-16); ASPARTATE AMINO TRANSFERASE 21 U/L (10-37); BILIRUBIN,TOTAL 0.2 MG/DL (0.1-1.0); BLOOD UREA NITROGEN 62 MG/DL (7-18); BUN/CREATININE RATIO 14.8 (6.6-38.0); CALCIUM 8.4 MG/DL (8.5-10.1); CHLORIDE 103 MMOL/L (99-107); GLUCOSE 116 MG/DL (70-104); POTASSIUM 4.9 MMOL/L (3.5-5.1); SODIUM 140 MMOL/L (135-145); TOTAL CARBON DIOXIDE 31.1 MMOL/L (24-32); eGFR 11 ML/MIN
[2019-08-11 06:26] LABS: BASOPHILS # (AUTO) 0.1 X10'3 (0-0.2); BASOPHILS % (AUTO) 0.6 % (0-1); EOSINOPHILS # (AUTO) 0.5 X10'3 (0-0.9); EOSINOPHILS % (AUTO) 5.4 % (0-6); HEMATOCRIT 23.5 % (35.0-45.0); HEMOGLOBIN 7.4 g/dl (12.0-16.0); LYMPHOCYTES # (AUTO) 1.4 X10'3 (1.1-4.8); LYMPHOCYTES % (AUTO) 15.2 % (21-51); MEAN CORPUSCULAR HEMOGLOBIN 28.3 PG (27.0-31.0); MEAN CORPUSCULAR HGB CONC 31.2 g/dL (33.0-36.5); MEAN CORPUSCULAR VOLUME 90.7 FL (78-98); MEAN PLATELET VOLUME 7.3 FL (7.4-10.4); MONOCYTES # (AUTO) 1.3 X10'3 (0-0.9); MONOCYTES % (AUTO) 13.7 % (2-12); NEUTROPHILS % (AUTO) 65.1 % (42-75); PLATELET COUNT 251 X10'3 (140-440); WHITE BLOOD COUNT 9.2 X10'3 (4.5-11.0)
--- NOTE | 2019-08-11 06:31 | NUR ---
Patient in room PCU 3020. I have received report from Elaine FABIAN and had the opportunity to ask questions and assume patient care.
[2019-08-11] MEDS ORDERED: normal saline 1000ml 1,000 ML IV SCH (06:50)
[2019-08-11 07:00] VITALS: BP 131/64
[2019-08-11] MEDS: budesonide 0.5mg/2ml UD nebule IH SCH (07:34)
[2019-08-11] MEDS: loratadine 10mg tablet PO SCH (07:46)
[2019-08-11] MEDS: metoprolol succinate 25mg (24-HOUR) SR. Tablet PO SCH (07:47)
[2019-08-11] MEDS: sodium bicarbonate 650mg tablet PO SCH ×2 (07:47→13:46)
[2019-08-11] MEDS: apixaban 5mg tablet PO SCH (07:47)
[2019-08-11] MEDS: amLODIPine 5mg tablet PO SCH (07:47)
[2019-08-11] MEDS: K and/or MAG REPLACEMENT MC SCH (07:49)
[2019-08-11] MEDS: sodium ferric gluc complex inj 125 MG in normal saline 100ml IV soln 100 ML IV SCH (08:23)
[2019-08-11 08:48] LABS: UREA NITROGEN 24HR,URINE 3.6 GM/24HR (7-20)
[2019-08-11 11:00] VITALS: BP 125/58
--- NOTE | 2019-08-11 11:35 | NUR ---
Patient's oxygen sat dropped to 83%, increased oxygen to 5 L and sat patient up, sd Addendum: 08/11/19 at 1143 by Lou Somers RN continue from previous note... and saturation went up to 94%. Reduced to 4L and patient maintained 93%.
--- NOTE | 2019-08-11 14:41 | NUR ---
Called report to RUI Ann at [facility]. Answered all questions and concerns for patient transfer.
--- NOTE | 2019-08-11 15:20 | NUR ---
Orientee documentation: I have reviewed and agree with all interventions, assessments performed and documented by RUI Blake .
--- NOTE | 2019-08-11 16:04 | NUR ---
Patient is stable for transfer per MD orders. [facility] and returned to [employer]. Patient transfered with PIV and Rangel catheter. Patient transferred by [employer] personnel via [place] [facility].
[2019-08-13 08:09] LABS: ANTITHROMBIN ACTIVITY 124 % (75-135); ANTITHROMBIN ANTIGEN 100 % (72-124)
== END 2019-08-11 15:15 | DRG 190 ==
LOC: ER 11:05 → ED HOLD 21:18 → PCU 3S 22:35
PROVIDERS: ADMIT Internal Medicine; ATTEND Internal Medicine
DX: I21.A1 Myocardial infarction type 2 (principal); I26.09 Other pulmonary embolism with acute cor pulmonale; J96.01 Acute respiratory failure with hypoxia; N17.9 Acute kidney failure, unspecified; J91.8 Pleural effusion in other conditions classified elsewhere; N18.4 Chronic kidney disease, stage 4 (severe); D63.8 Anemia in other chronic diseases classified elsewhere; E11.22 Type 2 diabetes mellitus with diabetic chronic kidney disease; D50.9 Iron deficiency anemia, unspecified; I12.9 Hypertensive chronic kidney disease with stage 1 through stage 4 chronic kidney disease, or unspecified chronic kidney disease; E87.2 Acidosis; K59.00 Constipation, unspecified; Z88.8 Allergy status to other drugs, medicaments and biological substances; Z91.018 Allergy to other foods
CPT/HCPCS: 36415; 36600; 70450; 71045; 78580; 80053; 81001; 82570; 82803; 82948; 83540; 83550; 83605; 83735; 83880; 84156; 84484; 84560; 85018; 85025; 85300; 85301; 85379; 85610; 85730; 87040; 87081; 93970; 94640; 94760; 96372; 97110; 97163; 97530; 99285; A9540; G0378; J1644; J1815; J1940; J2310; J2916; J3010; J3475; J7030; J7626

== ENCOUNTER 2019-08-12 08:38 | Inpatient (IN) | payer MEDICAID ==
[~2019-08-12] VITALS: Ht 162.6 cm; Wt 90.0 kg
[~2019-08-12 08:38] MED LIST changes: +FURO-149 PO; -FURO40TA4 PO; -LACT1CAP26 PO; -LINE600T12 PO; +ZAR2.5T PO
[2019-08-12] MEDS ORDERED: acetaminophen 325mg tablet PO STA (08:43)
[2019-08-12] MEDS ORDERED: vancomycin/NS 1 GM ADD-VANTAGE 250 ML IV ONE (08:45)
[2019-08-12] MEDS ORDERED: piperacillin/tazo 3.375gm/50ml 50 ML IV ONE (08:45)
--- NOTE | 2019-08-12 09:00 | NUR ---
PT KEEPS TAKING OFF HER NON-REBREATHER MASK, PLACED ON NC AT 4L WITH SATS INITALLY AT 94%. PT IS A MOUTH BREATHER WITH O2 SAT FLUCUATIONS OF 83-94% ON 4L FIO2
[2019-08-12 09:16] LABS: CLARITY,URINE CLOUDY (Clear); COLOR,URINE YELLOW (Yellow); GLUCOSE, URINE 100 mg/dl (Neg); KETONES,URINE NEGATIVE (Neg); LEUKOCYTE ESTERASE ,URINE NEGATIVE (Neg); NITRITES, URINE NEGATIVE (Neg); OCCULT BLOOD,URINE MODERATE (Neg); PH,URINE 5.5 (4.8-8.0); PROTEIN,URINE >=300 mg/dl (Neg); UROBILINOGEN,URINE 0.2 E.U/dL (0.2-1.0)
[2019-08-12 09:21] LABS: BASOPHILS # (AUTO) 0.1 X10'3 (0-0.2); BASOPHILS % (AUTO) 1.1 % (0-1); EOSINOPHILS # (AUTO) 0.1 X10'3 (0-0.9); EOSINOPHILS % (AUTO) 1.2 % (0-6); HEMATOCRIT 22.6 % (35.0-45.0); HEMOGLOBIN 7.1 g/dl (12.0-16.0); LYMPHOCYTES # (AUTO) 0.9 X10'3 (1.1-4.8); MEAN CORPUSCULAR HEMOGLOBIN 28.7 PG (27.0-31.0); MEAN CORPUSCULAR HGB CONC 31.4 g/dL (33.0-36.5); MEAN CORPUSCULAR VOLUME 91.3 FL (78-98); MONOCYTES # (AUTO) 1.2 X10'3 (0-0.9); MONOCYTES % (AUTO) 10.8 % (2-12); NEUTROPHILS # (AUTO) 8.9 X10'3 (1.8-7.7); NEUTROPHILS % (AUTO) 78.9 % (42-75); PLATELET COUNT 361 X10'3 (140-440); RED BLOOD COUNT 2.47 X10'6 (4.20-5.60); RED CELL DISTRIBUTION WIDTH 17.8 % (11.5-14.5); WHITE BLOOD COUNT 11.2 X10'3 (4.5-11.0)
[2019-08-12 09:28] LABS: UA COLLECTION TYPE FOLEY CATH
[2019-08-12 09:30] LABS: BACTERIA,URINE 1+ /HPF (Neg); SQUAMOUS EPITHELIAL CELL,UR FEW /LPF (FEW); WBC,URINE 50-100 /HPF (0-4)
[2019-08-12 09:31] LABS: MUCUS STRANDS NONE SEEN /LPF (Neg); WAXY CASTS,URINE 0-3 /LPF (NEGATIVE); YEAST MODERATE /HPF (NEGATIVE)
[2019-08-12 09:32] LABS: AMORPHOUS URATES 1+; CELLULAR CAST >30 /LPF (NEGATIVE)
[2019-08-12 09:40] LABS: PARTIAL THROMBOPLASTIN TIME 43 SECONDS (22-32)
[2019-08-12 09:49] LABS: ALANINE AMINOTRANSFERASE 15 U/L (12-78); ALBUMIN 1.7 G/DL (3.4-5.0); ALBUMIN/GLOBULIN RATIO 0.3 (1.1-1.5); ALKALINE PHOSPHATASE 403 IU/L (46-116); ANION GAP 7 (8-16); ASPARTATE AMINO TRANSFERASE 24 U/L (10-37); BILIRUBIN,TOTAL 0.3 MG/DL (0.1-1.0); BLOOD UREA NITROGEN 72 MG/DL (7-18); BUN/CREATININE RATIO 16.5 (6.6-38.0); CALCIUM 8.3 MG/DL (8.5-10.1); CHLORIDE 102 MMOL/L (99-107); CREATININE 4.36 MG/DL (0.40-0.90); GLUCOSE 122 MG/DL (70-104); MAGNESIUM 2.9 MG/DL (1.5-2.4); POTASSIUM 5.8 MMOL/L (3.5-5.1); SODIUM 137 MMOL/L (135-145); TOTAL CARBON DIOXIDE 27.9 MMOL/L (24-32); TOTAL PROTEIN 7.9 G/DL (6.4-8.2); eGFR 10 ML/MIN
[2019-08-12] MEDS ORDERED: normal saline 1000ml 1,000 ML IV SCH (10:33)
[2019-08-12] MEDS ORDERED: MESSAGE TO PHARMACY PO ONE ×2 (10:35→11:30)
[2019-08-12] MEDS ORDERED: mag hydrox/Alum hydrox/simeth 30ml oral suspension PO PRN ×2 (10:35→11:30)
[2019-08-12] MEDS ORDERED: ondansetron/PF 4mg/2ml inj IV PRN (10:35)
[2019-08-12] MEDS ORDERED: dextrose ORAL solution 15 GM/59 ML bottle PO PRN ×4 (10:35→11:30)
[2019-08-12] MEDS ORDERED: acetaminophen 325mg tablet PO PRN ×4 (10:35→11:30)
[2019-08-12] MEDS ORDERED: glucagon, human recombinant 1mg kit SUBCUT PRN ×2 (10:35→11:30)
[2019-08-12] MEDS ORDERED: HYDROcodone/acetaminophen 10/325mg tab PO PRN (10:35)
[2019-08-12] MEDS ORDERED: HYDROcodone/acetaminophen 5mg/325mg tablet PO PRN (10:35)
[2019-08-12] MEDS ORDERED: insulin Lispro (HumaLOG) vial - multi-dose SQ SCH ×2 (10:35→11:30)
[2019-08-12] MEDS ORDERED: magnesium hydroxide 30ml (MOM) UD suspension PO PRN ×2 (10:35→11:30)
[2019-08-12] MEDS ORDERED: dextrose 50%-water 50ml dispensing syringe IV PRN ×4 (10:35→11:30)
[2019-08-12] MEDS ORDERED: morphine 2 MG/ML inj. syringe IV PRN ×4 (10:35→11:30)
[2019-08-12] MEDS ORDERED: furosemide 10 MG/1 ML 10ml inj IV ONE (11:10)
[2019-08-12] MEDS: HYDROcodone/acetaminophen 5mg/325mg tablet PO PRN ×2 (12:15→19:42)
--- NOTE | 2019-08-12 12:38 | NUR ---
PT PLACED BACK ON NON-REBREATHER MASK FOR O2 SATS IN MID 80'S. PT WANTING HER LEGS MOVED BUT REFUSES TO LET ANYONE TOUCH HER LEGS. PT WANTING TO BE REPOSITIONED BUT REFUSES TO LET ANYONE MOVE HER. PT GIVEN NORCO 5/325MG FOR PAIN OF 11/16
[2019-08-12] MEDS ORDERED: docusate sod 100mg capsule PO PRN (13:35)
[2019-08-12 14:07] LABS: TROPONIN I < 0.04 NG/ML (0.0-0.05)
--- NOTE | 2019-08-12 15:31 | NUR ---
TC RETURNED FROM DR. HIGGINBOTHAM AND INFORMED OF PATIENT REQUIRING INCREASE IN VENTI MASK SETTING. O2 SAT 95% WITH PRESENT SETTING WITH GREEN ADAPTOR AND 12LPM OF O2 FLOW. PATIENT RESTING COMFORTABLY IN ROOM. NO NEW ORDERS AT THIS TIME.
[2019-08-12] MEDS ORDERED: ALBUTEROL INHALER 1 PUFF/90 MCG INHALER IH SCH (16:00)
[2019-08-12] MEDS: albuterol 2.5 MG/3 ML nebule NEB SCH ×3 (17:20→23:34)
[2019-08-12 17:50] VITALS: BP 130/62
--- NOTE | 2019-08-12 18:00 | NUR ---
Patient in room [facility] 346. I have received report from Kourtney FABIAN and had the opportunity to ask questions and assume patient care.
[2019-08-12 19:24] VITALS: BP 136/61
[2019-08-12] MEDS: budesonide 0.5mg/2ml UD nebule IH SCH (19:48)
[2019-08-12] MEDS: atorvastatin 20mg tablet PO SCH (20:14)
[2019-08-12] MEDS: apixaban 5mg tablet PO SCH (20:14)
[2019-08-12] MEDS: sodium bicarbonate 650mg tablet PO SCH (20:14)
[2019-08-12] MEDS: insulin glargine (Lantus) pen - multi-dose SQ SCH (21:00)
[2019-08-12] MEDS ORDERED: insulin glargine (Lantus) pen - multi-dose SQ SCH (21:00)
[2019-08-12] MEDS ORDERED: diphenhydrAMINE 25mg capsule PO PRN (21:15)
[2019-08-12] MEDS: nystatin 15 GM powder TP PRN (21:48)
[2019-08-12 23:36] VITALS: BP 112/51
[2019-08-13] VITALS (7 sets, daily range): BP systolic 116–125; BP diastolic 50–60
[2019-08-13] MEDS: HYDROcodone/acetaminophen 5mg/325mg tablet PO PRN ×2 (00:06→05:03)
[2019-08-13] MEDS: albuterol 2.5 MG/3 ML nebule NEB SCH ×6 (03:19→23:36)
[2019-08-13 04:43] LABS: BASOPHILS # (AUTO) 0.1 X10'3 (0-0.2); BASOPHILS % (AUTO) 1.2 % (0-1); EOSINOPHILS # (AUTO) 0.3 X10'3 (0-0.9); EOSINOPHILS % (AUTO) 3.7 % (0-6); LYMPHOCYTES # (AUTO) 1.1 X10'3 (1.1-4.8); LYMPHOCYTES % (AUTO) 11.8 % (21-51); MEAN CORPUSCULAR HEMOGLOBIN 29.1 PG (27.0-31.0); MEAN CORPUSCULAR HGB CONC 31.8 g/dL (33.0-36.5); MEAN CORPUSCULAR VOLUME 91.3 FL (78-98); MEAN PLATELET VOLUME 6.9 FL (7.4-10.4); MONOCYTES # (AUTO) 1.2 X10'3 (0-0.9); MONOCYTES % (AUTO) 12.5 % (2-12); NEUTROPHILS # (AUTO) 6.7 X10'3 (1.8-7.7); NEUTROPHILS % (AUTO) 70.8 % (42-75); PLATELET COUNT 352 X10'3 (140-440); RED BLOOD COUNT 2.31 X10'6 (4.20-5.60); RED CELL DISTRIBUTION WIDTH 17.8 % (11.5-14.5); WHITE BLOOD COUNT 9.4 X10'3 (4.5-11.0)
[2019-08-13 04:44] LABS: HEMOGLOBIN 6.7 g/dl (12.0-16.0)
[2019-08-13 04:45] LABS: HEMATOCRIT 21.1 % (35.0-45.0)
[2019-08-13 04:59] LABS: RHEUM FACTOR QUAL REFLEX TITER NEGATIVE (Neg)
[2019-08-13 05:12] LABS: ALBUMIN 1.5 G/DL (3.4-5.0); ANION GAP 7 (8-16); BLOOD UREA NITROGEN 78 MG/DL (7-18); BUN/CREATININE RATIO 17.2 (6.6-38.0); CALCIUM 8.5 MG/DL (8.5-10.1); CHLORIDE 104 MMOL/L (99-107); CREATININE 4.54 MG/DL (0.40-0.90); GLUCOSE 103 MG/DL (70-104); LACTATE DEHYDROGENASE 140 U/L (81-234); POTASSIUM 4.8 MMOL/L (3.5-5.1); SODIUM 140 MMOL/L (135-145); TOTAL CARBON DIOXIDE 28.8 MMOL/L (24-32); eGFR 10 ML/MIN
--- NOTE | 2019-08-13 05:38 | NUR ---
Contacted Dr Amaya and she said for Dr. West to consent with patient about transfusion. H&H 6.10/27.
--- NOTE | 2019-08-13 06:20 | NUR ---
Patient in room [facility] 346. I have received report from RUI MARTINEZ and had the opportunity to ask questions and assume patient care.
--- NOTE | 2019-08-13 06:20 | NUR ---
Problems reprioritized. Patient report given, questions answered & plan of care reviewed with Ruth FABIAN.
[2019-08-13] MEDS: budesonide 0.5mg/2ml UD nebule IH SCH ×2 (07:00→19:51)
[2019-08-13] MEDS ORDERED: CefTRIAXone/D5W-Rocephin 1gm 50 ML IV SCH (08:00)
[2019-08-13] MEDS: CefTRIAXone/D5W-Rocephin 1gm 50 ML IV SCH (08:11)
[2019-08-13] MEDS: metoprolol succinate 25mg (24-HOUR) SR. Tablet PO SCH (08:11)
[2019-08-13] MEDS: loratadine 10mg tablet PO SCH (08:11)
[2019-08-13] MEDS: sodium bicarbonate 650mg tablet PO SCH ×3 (08:12→21:23)
[2019-08-13] MEDS: amLODIPine 5mg tablet PO SCH (08:12)
[2019-08-13] MEDS: apixaban 5mg tablet PO SCH (08:12)
[2019-08-13] MEDS: nystatin 15 GM powder TP PRN (08:16)
[2019-08-13] MEDS ORDERED: ALB0.5UD IH (09:20)
[2019-08-13] MEDS ORDERED: BUDE0.5A11 IH (09:21)
[2019-08-13] MEDS ORDERED: APIX5TAB3 PO (09:23)
[2019-08-13] MEDS ORDERED: POLY17PO10 PO (09:23)
[2019-08-13] MEDS ORDERED: PRAM0.253 PO (09:23)
--- NOTE | 2019-08-13 10:12 | NUR ---
DM consult: Pt with hx T2DM. Per records A1c previously 9.1% in November 2018, down to 7.2% in April of this year, and currently down to 5.7%. DM education not warranted at this time. Will continue to follow. Addendum: 08/13/19 at [address] Amended: Links added.
[2019-08-13] MEDS: normal saline 1000ml 500 ML IV SCH (11:20)
--- NOTE | 2019-08-13 12:00 | NUR ---
PATIENT REFUSED TO HAVE HEELS FLOATED AND TURNED TO SIDE, EDUCATED PATIENT ON BENEFITS OF TURNING AND FLOATING HEELS
--- NOTE | 2019-08-13 13:08 | NUR ---
Patient went to [facility] for bone scan via [facility]. Patient tolerated transfer to [facility] well.
[2019-08-13] MEDS ORDERED: normal saline 1000ml 100 ML IV PRN (13:16)
[2019-08-13] MEDS ORDERED: epoetin 20,000 units/ml inj IV ONE (13:20)
[2019-08-13] MEDS ORDERED: heparin 1,000 units/ml 10ml inj HE ONE (13:20)
[2019-08-13] MEDS: HYDROcodone/acetaminophen 10/325mg tab PO PRN (15:19)
--- NOTE | 2019-08-13 18:00 | NUR ---
Patient in room [facility] 346. I have received report from Caitlin FABIAN and had the opportunity to ask questions and assume patient care.
--- NOTE | 2019-08-13 18:15 | NUR ---
Problems reprioritized. Patient report given, questions answered & plan of care reviewed with RUI MARTINEZ.
[2019-08-13] MEDS: insulin glargine (Lantus) pen - multi-dose SQ SCH (21:00)
[2019-08-13] MEDS: atorvastatin 20mg tablet PO SCH (21:23)
[2019-08-14] VITALS (7 sets, daily range): BP systolic 106–130; BP diastolic 40–83
[2019-08-14] MEDS ORDERED: furosemide 40mg/4ml inj IV ONE (00:15)
--- NOTE | 2019-08-14 02:11 | NUR ---
At 2300 on 07/13 RN paged stating that pt had increased O2 requirements and asking for ABG. Pt was on 10L high flow nasal cannula at 85%. I made 2 attempts to draw and ABG but got venous both times. I requested help from a second RT but the pt refused to allow the blood draw.
[2019-08-14] MEDS: HYDROcodone/acetaminophen 5mg/325mg tablet PO PRN (03:02)
[2019-08-14] MEDS: albuterol 2.5 MG/3 ML nebule NEB SCH ×6 (04:12→23:16)
[2019-08-14 05:38] LABS: BASOPHILS # (AUTO) 0.1 X10'3 (0-0.2); BASOPHILS % (AUTO) 0.7 % (0-1); EOSINOPHILS # (AUTO) 0.2 X10'3 (0-0.9); EOSINOPHILS % (AUTO) 1.1 % (0-6); HEMATOCRIT 24.5 % (35.0-45.0); HEMOGLOBIN 7.8 g/dl (12.0-16.0); LYMPHOCYTES # (AUTO) 0.7 X10'3 (1.1-4.8); LYMPHOCYTES % (AUTO) 4.3 % (21-51); MEAN CORPUSCULAR HEMOGLOBIN 28.8 PG (27.0-31.0); MEAN CORPUSCULAR HGB CONC 31.9 g/dL (33.0-36.5); MEAN CORPUSCULAR VOLUME 90.4 FL (78-98); MEAN PLATELET VOLUME 7.7 FL (7.4-10.4); MONOCYTES % (AUTO) 12.2 % (2-12); NEUTROPHILS # (AUTO) 13.2 X10'3 (1.8-7.7); NEUTROPHILS % (AUTO) 81.7 % (42-75); PLATELET COUNT 393 X10'3 (140-440); RED BLOOD COUNT 2.71 X10'6 (4.20-5.60); RED CELL DISTRIBUTION WIDTH 18.4 % (11.5-14.5); WHITE BLOOD COUNT 16.1 X10'3 (4.5-11.0)
--- NOTE | 2019-08-14 05:46 | NUR ---
Patient wont turn by herself and when we try to turn her she screams and tells us to stop and dont touch her
[2019-08-14 05:51] LABS: ALBUMIN 1.5 G/DL (3.4-5.0); ANION GAP 14 (8-16); BLOOD UREA NITROGEN 84 MG/DL (7-18); CALCIUM 8.1 MG/DL (8.5-10.1); CHLORIDE 103 MMOL/L (99-107); CREATININE 4.66 MG/DL (0.40-0.90); GLUCOSE 118 MG/DL (70-104); POTASSIUM 5.6 MMOL/L (3.5-5.1); SODIUM 138 MMOL/L (135-145); TOTAL CARBON DIOXIDE 21.5 MMOL/L (24-32); eGFR 9 ML/MIN
--- NOTE | 2019-08-14 06:10 | NUR ---
Patient in room [facility] 346. I have received report from RUI Bennett and had the opportunity to ask questions and assume patient care.
[2019-08-14 06:15] LABS: RPR Non Reactive (Non Reactive)
--- NOTE | 2019-08-14 06:25 | NUR ---
Problems reprioritized. Patient report given, questions answered & plan of care reviewed with Irma FABIAN.
[2019-08-14] MEDS: budesonide 0.5mg/2ml UD nebule IH SCH ×2 (07:10→19:40)
[2019-08-14 07:12] LABS: COMPLEMENT C3, SERUM 139 mg/dL (82-167); COMPLEMENT C4, SERUM 29 mg/dL (14-44); HEPATITIS C ANTIBODY 0.1 s/co ratio (0.0-0.9); IMMUNOGLOBULIN A, QN, SERUM 386 mg/dL (87-352); IMMUNOGLOBULIN G, QN, SERUM 2141 mg/dL (586-1602); IMMUNOGLOBULIN M, QN, SERUM 271 mg/dL (26-217)
--- NOTE | 2019-08-14 07:15 | NUR ---
At 1999 got vital signs and patient was 87% on 3 liters I tuned it up it seemed to help for a short time. RT came in to give her a breathing treatment and put her on a non rebreather which helped for awhile, when her o2 was going down again I paged DR Amaya and got an order for ABG's. I also received an order for furosemide and a chest xray. RT made two attempts to get ABG's without success, she then had another RT try and the patient refused to let her try, patient stated that we didn't understand how painful it was and that we can't continue to try because she told us no. There was a total of 3 RT's in the room. RT placed high flow canula at 10L which kept her o2 stats between 88-94% X-ray came in shortly after and we had to lean her forward a little to get the xray film behind her and when we tried to move her she started to scream no and that she didn't want it. The location and measurement technician took the film and said she couldnt do it with her saying no. Educated the patient on how important it was to get the xray and we would do it as quickly as possible so we tried again and we were successful . The patient didn't want to be touched but she wanted us to help her. Patient would ask me to change her position and when I would attempt to do it she would scream and tell me to stop.
[2019-08-14] MEDS: CefTRIAXone/D5W-Rocephin 1gm 50 ML IV SCH (07:43)
[2019-08-14] MEDS: metoprolol succinate 25mg (24-HOUR) SR. Tablet PO SCH (07:59)
[2019-08-14] MEDS: sodium bicarbonate 650mg tablet PO SCH ×3 (08:00→20:54)
[2019-08-14] MEDS: amLODIPine 5mg tablet PO SCH (08:00)
[2019-08-14] MEDS ORDERED: heparin 1,000 units/ml 10ml inj HE ONE ×2 (08:00)
[2019-08-14] MEDS: loratadine 10mg tablet PO SCH (08:00)
[2019-08-14] MEDS ORDERED: normal saline 1000ml 250 ML IV PRN (08:00)
[2019-08-14 08:23] LABS: HBSAG SCREEN Negative (Negative); HEP B CORE AB, IGM Negative (Negative); HEP B CORE AB, TOT Negative (Negative)
[2019-08-14 08:23] LABS: ANTINUCLEAR ANTIBODIES Negative (Negative)
--- NOTE | 2019-08-14 12:31 | NUR ---
Pt refusing afternoon vital signs. Will continue to monitor.
[2019-08-14] MEDS ORDERED: heparin 1,000unit/ml 10ml vial 10 ML ONE (12:50)
[2019-08-14] MEDS ORDERED: LIDOcaine 1%/PF 5ML 10 MG/ML VIAL ONE (12:50)
[2019-08-14] MEDS ORDERED: fentaNYL/PF 50MCG/1 ML 2ML syringe ONE (12:50)
[2019-08-14] MEDS ORDERED: midazolam 2 mg/2 ml injection ONE (12:50)
--- NOTE | 2019-08-14 13:00 | NUR ---
IR RN arrived to take pt for TDC placement.
[2019-08-14 13:23] LABS: A/G RATIO 0.4 (0.7-1.7); ALBUMIN 1.8 g/dL (2.9-4.4); BETA GLOBULIN 0.9 g/dL (0.7-1.3); GAMMA GLOBULIN 2.1 g/dL (0.4-1.8); GLOBULIN, TOTAL 4.7 g/dL (2.2-3.9); M-SPIKE Not Observed g/dL (Not Observed); PROTEIN, TOTAL, SERUM 6.5 g/dL (6.0-8.5)
--- NOTE | 2019-08-14 14:23 | NUR ---
Pt back from IR
[2019-08-14] MEDS: HYDROcodone/acetaminophen 10/325mg tab PO PRN ×2 (15:00→20:54)
[2019-08-14] MEDS ORDERED: epoetin 20,000 units/ml inj IV ONE (17:15)
--- NOTE | 2019-08-14 18:58 | NUR ---
Problems reprioritized. Patient report given, questions answered & plan of care reviewed with RUI Stiles and alfred Rios RN.
--- NOTE | 2019-08-14 19:39 | NUR ---
Patient in room [facility] 346. I have received report from MADDIE FABIAN and had the opportunity to ask questions and assume patient care.
[2019-08-14] MEDS: atorvastatin 20mg tablet PO SCH (20:52)
[2019-08-14] MEDS: insulin glargine (Lantus) pen - multi-dose SQ SCH (21:00)
--- NOTE | 2019-08-14 21:00 | NUR ---
came to do physical assessment on pt. pt was asking where her cell phone was.i checked around room, however i did not find any belongings for the pt. I checked the admission assessment to see what belongings the pt had brought on admission.the admission assessment stated that the pt did not bring any belongings during admission. I informed the pt that the admission assessment stated she did not bring any belongings with her. pt was upset and still thought that she brought her cell phone with her. pt refused to let me listen to lungs, heart and bowel sounds. I charted what i could for the assessment and will try again to get the rest of the information for the physical assessment. I also informed the pt that her valentin catheter was ordered to be removed but she did not want that removed at this time either
[2019-08-15] VITALS: BP 117/70
[2019-08-15] MEDS: normal saline 1000ml 500 ML IV SCH ×2 (02:37→13:20)
[2019-08-15] MEDS: albuterol 2.5 MG/3 ML nebule NEB SCH ×6 (03:36→22:45)
--- NOTE | 2019-08-15 03:53 | NUR ---
there is a order to discontinue the valentin catheter for pt. on 08/14/2019 at 2000 I told the pt about the order to remove the valentin. the pt refused to have the valentin removed. at 0230 i discussed the order to remove the valentin catheter agin with the pt. I discussed the reasons for having the catheter removed and the benefits. I also discussed the use of a wick with the pt. the pt refused to have the valentin catheter removed again. The pt stated that she "was not ready to remove the valentin."
--- NOTE | 2019-08-15 05:29 | NUR ---
asked pt again about removing the valentin catheter. pt refused. I explained the that removing the valentin will reduce the risk of infection and told the pt about the wick
[2019-08-15 06:00] LABS: BASOPHILS # (AUTO) 0.1 X10'3 (0-0.2); BASOPHILS % (AUTO) 0.8 % (0-1); EOSINOPHILS # (AUTO) 0.2 X10'3 (0-0.9); EOSINOPHILS % (AUTO) 1.9 % (0-6); HEMATOCRIT 26.7 % (35.0-45.0); HEMOGLOBIN 8.2 g/dl (12.0-16.0); LYMPHOCYTES # (AUTO) 0.9 X10'3 (1.1-4.8); LYMPHOCYTES % (AUTO) 7.4 % (21-51); MEAN CORPUSCULAR HEMOGLOBIN 27.6 PG (27.0-31.0); MEAN CORPUSCULAR HGB CONC 30.8 g/dL (33.0-36.5); MEAN CORPUSCULAR VOLUME 89.6 FL (78-98); MEAN PLATELET VOLUME 7.6 FL (7.4-10.4); MONOCYTES # (AUTO) 1.4 X10'3 (0-0.9); MONOCYTES % (AUTO) 12.3 % (2-12); NEUTROPHILS % (AUTO) 77.6 % (42-75); PLATELET COUNT 414 X10'3 (140-440); RED BLOOD COUNT 2.98 X10'6 (4.20-5.60); RED CELL DISTRIBUTION WIDTH 18.9 % (11.5-14.5); WHITE BLOOD COUNT 11.6 X10'3 (4.5-11.0)
[2019-08-15 06:11] LABS: ALBUMIN 1.5 G/DL (3.4-5.0); ANION GAP 8 (8-16); BLOOD UREA NITROGEN 54 MG/DL (7-18); BUN/CREATININE RATIO 16.9 (6.6-38.0); CALCIUM 8.7 MG/DL (8.5-10.1); CHLORIDE 104 MMOL/L (99-107); CREATININE 3.19 MG/DL (0.40-0.90); GLUCOSE 114 MG/DL (70-104); POTASSIUM 4.3 MMOL/L (3.5-5.1); SODIUM 140 MMOL/L (135-145); TOTAL CARBON DIOXIDE 28.1 MMOL/L (24-32); eGFR 15 ML/MIN
--- NOTE | 2019-08-15 06:31 | NUR ---
Problems reprioritized. Patient report given, questions answered & plan of care reviewed with Gayle FABIAN.
[2019-08-15 06:48] LABS: ANISOCYTOSIS 2+; PLATELET ESTIMATE NORMAL
[2019-08-15 06:49] LABS: HYPOCHROMASIA 1+
[2019-08-15 06:56] LABS: POLYCHROMASIA FEW; SCHISTOCYTES FEW
[2019-08-15 07:15] VITALS: BP 99/69
[2019-08-15] MEDS: HYDROcodone/acetaminophen 10/325mg tab PO PRN ×2 (07:18→20:29)
[2019-08-15] MEDS: loratadine 10mg tablet PO SCH (07:18)
[2019-08-15] MEDS: metoprolol succinate 25mg (24-HOUR) SR. Tablet PO SCH (07:18)
[2019-08-15] MEDS: sodium bicarbonate 650mg tablet PO SCH ×3 (07:18→20:28)
[2019-08-15] MEDS: amLODIPine 5mg tablet PO SCH (07:20)
[2019-08-15] MEDS: budesonide 0.5mg/2ml UD nebule IH SCH ×2 (07:28→19:12)
[2019-08-15] MEDS: apixaban 5mg tablet PO SCH ×2 (08:22→20:29)
[2019-08-15] MEDS ORDERED: normal saline 1000ml 250 ML IV PRN (10:29)
[2019-08-15] MEDS ORDERED: epoetin 20,000 units/ml inj IV ONE (10:30)
[2019-08-15] MEDS ORDERED: heparin 1,000 units/ml 10ml inj HE ONE ×2 (10:35)
[2019-08-15 11:00] VITALS: BP 96/54
--- NOTE | 2019-08-15 17:30 | NUR ---
Patient accidentally pulled out IV. Notified Dr. Bergman. Dr Mayer ordered for "no IV" and informed patient that patient is diabetic and he repeated again "no IV." Primary RNGayle notified. Addendum: 08/15/19 at 1834 by Sujey Larkin RN Correction: Informed Dr. Bergman that patient is diabetic.
[2019-08-15 18:00] VITALS: BP 97/63
--- NOTE | 2019-08-15 18:40 | NUR ---
Problems reprioritized. Patient report given, questions answered & plan of care reviewed with JORGE L FABIAN.
--- NOTE | 2019-08-15 19:36 | NUR ---
Patient in room [facility] 346. I have received report from Gayle FABIAN and had the opportunity to ask questions and assume patient care.
[2019-08-15] MEDS: atorvastatin 20mg tablet PO SCH (20:28)
[2019-08-15] MEDS: insulin glargine (Lantus) pen - multi-dose SQ SCH (21:00)
[2019-08-16 00:30] VITALS: BP 111/58
[2019-08-16] MEDS: albuterol 2.5 MG/3 ML nebule NEB SCH ×6 (03:14→23:29)
[2019-08-16 05:12] LABS: BASOPHILS # (AUTO) 0.1 X10'3 (0-0.2); BASOPHILS % (AUTO) 0.7 % (0-1); EOSINOPHILS # (AUTO) 0.3 X10'3 (0-0.9); EOSINOPHILS % (AUTO) 2.9 % (0-6); HEMATOCRIT 23.8 % (35.0-45.0); HEMOGLOBIN 7.5 g/dl (12.0-16.0); LYMPHOCYTES # (AUTO) 1.1 X10'3 (1.1-4.8); LYMPHOCYTES % (AUTO) 10.7 % (21-51); MEAN CORPUSCULAR HEMOGLOBIN 28.4 PG (27.0-31.0); MEAN CORPUSCULAR HGB CONC 31.5 g/dL (33.0-36.5); MEAN CORPUSCULAR VOLUME 90.2 FL (78-98); MEAN PLATELET VOLUME 7.6 FL (7.4-10.4); MONOCYTES # (AUTO) 1.4 X10'3 (0-0.9); MONOCYTES % (AUTO) 14.5 % (2-12); NEUTROPHILS # (AUTO) 7.1 X10'3 (1.8-7.7); NEUTROPHILS % (AUTO) 71.2 % (42-75); PLATELET COUNT 405 X10'3 (140-440); RED BLOOD COUNT 2.64 X10'6 (4.20-5.60); RED CELL DISTRIBUTION WIDTH 18.7 % (11.5-14.5); WHITE BLOOD COUNT 9.9 X10'3 (4.5-11.0)
[2019-08-16 05:15] LABS: ALBUMIN 1.3 G/DL (3.4-5.0); ANION GAP 4 (8-16); BLOOD UREA NITROGEN 35 MG/DL (7-18); BUN/CREATININE RATIO 12.7 (6.6-38.0); CALCIUM 8.3 MG/DL (8.5-10.1); CHLORIDE 105 MMOL/L (99-107); CREATININE 2.75 MG/DL (0.40-0.90); GLUCOSE 108 MG/DL (70-104); POTASSIUM 3.9 MMOL/L (3.5-5.1); SODIUM 140 MMOL/L (135-145); TOTAL CARBON DIOXIDE 30.8 MMOL/L (24-32); eGFR 17 ML/MIN
[2019-08-16] MEDS: HYDROcodone/acetaminophen 10/325mg tab PO PRN ×3 (05:27→20:41)
[2019-08-16 06:24] LABS: ANISOCYTOSIS 2+; HYPOCHROMASIA 1+; PLATELET ESTIMATE NORMAL
[2019-08-16 06:25] LABS: POLYCHROMASIA FEW; STOMATOCYTES 1+; TARGET CELLS FEW
--- NOTE | 2019-08-16 06:37 | NUR ---
Problems reprioritized. Patient report given, questions answered & plan of care reviewed with Klaudia FABIAN.
--- NOTE | 2019-08-16 07:02 | NUR ---
Patient in room [facility] 346. I have received report from Blanca FABIAN and had the opportunity to ask questions and assume patient care with clinical nursing instructor Adrienne .
[2019-08-16] MEDS: budesonide 0.5mg/2ml UD nebule IH SCH ×2 (07:10→19:21)
[2019-08-16 07:45] VITALS: BP 108/69
[2019-08-16] MEDS: apixaban 5mg tablet PO SCH ×2 (09:40→20:40)
[2019-08-16] MEDS: amLODIPine 5mg tablet PO SCH (09:40)
[2019-08-16] MEDS: loratadine 10mg tablet PO SCH (09:40)
[2019-08-16] MEDS: metoprolol succinate 25mg (24-HOUR) SR. Tablet PO SCH (09:41)
[2019-08-16] MEDS: sodium bicarbonate 650mg tablet PO SCH ×3 (09:41→20:40)
[2019-08-16 12:00] VITALS: BP 109/54
[2019-08-16 12:29] VITALS: BP 109/54
[2019-08-16] MEDS: nystatin 15 GM powder TP SCH ×2 (13:09→23:06)
--- NOTE | 2019-08-16 14:39 | NUR ---
bladder scanned pt at 8am 87ml, bladder scanned pt at 2pm, 8ml, pt had BM, doesn't think she urrinated.
--- NOTE | 2019-08-16 16:00 | NUR ---
Dr West aware patient has not voided today and bladder scan shows 88ml's in bladder. Also, Dr West aware Dr Bergman notes say expect patient urine output to decrease due to dialysis. No new orders at this time.
[2019-08-16 18:00] VITALS: BP 109/52
--- NOTE | 2019-08-16 18:26 | NUR ---
Patient in room [facility] 346. I have received report from RUI Rudolph and had the opportunity to ask questions and assume patient care with RUI Rios. Addendum: 08/16/19 at 1826 by Akilah Bran RN Amended: Links added.
--- NOTE | 2019-08-16 18:34 | NUR ---
Problems reprioritized. Patient report given, questions answered & plan of care reviewed with Blanca FABIAN and Cassi FABIAN patient eating dinner.
--- NOTE | 2019-08-16 18:35 | NUR ---
Patient in room [facility] 346. I have received report from Claudia SHERWOOD and Klaudia FABIAN and had the opportunity to ask questions and assume patient care.
[2019-08-16 19:58] VITALS: BP 109/52
[2019-08-16] MEDS: atorvastatin 20mg tablet PO SCH (20:40)
[2019-08-16] MEDS: insulin glargine (Lantus) pen - multi-dose SQ SCH (21:00)
[2019-08-17] VITALS: BP 105/51
[2019-08-17] MEDS: albuterol 2.5 MG/3 ML nebule NEB SCH ×6 (03:11→23:22)
[2019-08-17] MEDS: HYDROcodone/acetaminophen 10/325mg tab PO PRN ×4 (04:06→19:54)
[2019-08-17 04:45] LABS: BASOPHILS # (AUTO) 0.1 X10'3 (0-0.2); BASOPHILS % (AUTO) 0.7 % (0-1); EOSINOPHILS # (AUTO) 0.5 X10'3 (0-0.9); EOSINOPHILS % (AUTO) 5.2 % (0-6); HEMATOCRIT 27.3 % (35.0-45.0); HEMOGLOBIN 8.5 g/dl (12.0-16.0); LYMPHOCYTES % (AUTO) 10.5 % (21-51); MEAN CORPUSCULAR HEMOGLOBIN 28.3 PG (27.0-31.0); MEAN CORPUSCULAR HGB CONC 31.2 g/dL (33.0-36.5); MEAN CORPUSCULAR VOLUME 90.7 FL (78-98); MEAN PLATELET VOLUME 7.5 FL (7.4-10.4); MONOCYTES % (AUTO) 11.1 % (2-12); NEUTROPHILS # (AUTO) 6.8 X10'3 (1.8-7.7); NEUTROPHILS % (AUTO) 72.5 % (42-75); PLATELET COUNT 489 X10'3 (140-440); RED BLOOD COUNT 3.01 X10'6 (4.20-5.60); WHITE BLOOD COUNT 9.4 X10'3 (4.5-11.0)
[2019-08-17 04:57] LABS: ALBUMIN 1.6 G/DL (3.4-5.0); ANION GAP 5 (8-16); BLOOD UREA NITROGEN 45 MG/DL (7-18); BUN/CREATININE RATIO 12.8 (6.6-38.0); CALCIUM 8.6 MG/DL (8.5-10.1); CHLORIDE 102 MMOL/L (99-107); CREATININE 3.51 MG/DL (0.40-0.90); GLUCOSE 113 MG/DL (70-104); POTASSIUM 4.1 MMOL/L (3.5-5.1); SODIUM 137 MMOL/L (135-145); TOTAL CARBON DIOXIDE 29.8 MMOL/L (24-32); eGFR 13 ML/MIN
--- NOTE | 2019-08-17 05:36 | NUR ---
NURSING ASSESSMENT REVIEWED Addendum: 08/17/19 at 0536 by Akilah Bran RN Amended: Links added.
--- NOTE | 2019-08-17 06:37 | NUR ---
Problems reprioritized. Patient report given, questions answered & plan of care reviewed with Virgie FABIAN.
--- NOTE | 2019-08-17 06:40 | NUR ---
Patient in room [facility] 346. I have received report from vance FABIAN and had the opportunity to ask questions and assume patient care.
[2019-08-17 07:00] VITALS: BP 119/55
[2019-08-17] MEDS: budesonide 0.5mg/2ml UD nebule IH SCH ×2 (07:09→19:27)
[2019-08-17] MEDS: nystatin 15 GM powder TP SCH ×3 (08:00→19:49)
[2019-08-17] MEDS: sodium bicarbonate 650mg tablet PO SCH ×3 (08:11→19:48)
[2019-08-17] MEDS: metoprolol succinate 25mg (24-HOUR) SR. Tablet PO SCH (08:12)
[2019-08-17] MEDS: apixaban 5mg tablet PO SCH ×2 (08:12→19:48)
[2019-08-17] MEDS: amLODIPine 5mg tablet PO SCH (08:13)
[2019-08-17] MEDS: loratadine 10mg tablet PO SCH (08:13)
--- NOTE | 2019-08-17 15:00 | NUR ---
PATIENT AGREEABLE TO WORK WITH STAFF AND PT TO GET OOB, UNABLE TO VOID FOR MOST OF SHIFT, BUT AFTER TWO ATTEMPTS PATIENT ABLE TO VOID [id number] IN BSC. WAS BLADDERSCAN PRIOR TO THIS HAD 498MLS. MEDICATED FOR PAIN IN LEGS WITH EFFECT. WILL CONTINUE TO MONITOR
--- NOTE | 2019-08-17 16:01 | NUR ---
Initial: Pt admit w/ newly DX PE, respiratory distress, possible UTI, and LANA on CKD IV per . S/p TDC for HD PO 75-100% avg meals meeting needs. LBM 08/15. No nutrition concerns at this time; will continue to monitor. Rec: 1. continue carb controlled diet 2. bowel regularity 3. wt per rx Addendum: 08/17/19 at [address] Amended: Links added.
[2019-08-17 18:00] VITALS: BP 99/54
--- NOTE | 2019-08-17 18:50 | NUR ---
Problems reprioritized. Patient report given, questions answered & plan of care reviewed with MILE FABIAN.
[2019-08-17] MEDS: atorvastatin 20mg tablet PO SCH (19:48)
[2019-08-17] MEDS: insulin glargine (Lantus) pen - multi-dose SQ SCH (21:00)
[2019-08-17 23:30] VITALS: BP 105/58
[2019-08-18] MEDS: albuterol 2.5 MG/3 ML nebule NEB SCH ×6 (03:54→23:26)
[2019-08-18] MEDS: budesonide 0.5mg/2ml UD nebule IH SCH ×2 (07:04→19:25)
[2019-08-18 08:00] VITALS: BP 103/51
[2019-08-18] MEDS ORDERED: heparin 1,000unit/ml 10ml vial 10 ML IV ONE (08:08)
[2019-08-18] MEDS ORDERED: normal saline 1000ml 250 ML IV PRN ×2 (08:08→08:16)
[2019-08-18] MEDS ORDERED: epoetin 20,000 units/ml inj IV ONE ×2 (08:10→08:20)
[2019-08-18] MEDS ORDERED: heparin 1,000 units/ml 10ml inj IV ONE (08:10)
[2019-08-18] MEDS ORDERED: heparin 1,000 units/ml 10ml inj HE ONE ×3 (08:15→08:20)
[2019-08-18] MEDS: metoprolol succinate 25mg (24-HOUR) SR. Tablet PO SCH (08:31)
[2019-08-18] MEDS: HYDROcodone/acetaminophen 10/325mg tab PO PRN ×3 (08:31→21:58)
[2019-08-18] MEDS: sodium bicarbonate 650mg tablet PO SCH ×3 (08:31→21:57)
[2019-08-18] MEDS: apixaban 5mg tablet PO SCH ×2 (08:31→21:57)
[2019-08-18] MEDS: loratadine 10mg tablet PO SCH (08:31)
[2019-08-18] MEDS: nystatin 15 GM powder TP SCH ×3 (08:32→21:59)
[2019-08-18 11:00] VITALS: BP 98/62
[2019-08-18] MEDS: ondansetron/PF 4mg/2ml inj IV PRN (12:59)
[2019-08-18 13:16] LABS: ATYPICAL PANCA <1:20 titer (Neg:<1:20); CYTOPLASMIC (C-ANCA) <1:20 titer (Neg:<1:20); PERINUCLEAR (P-ANCA) <1:20 titer (Neg:<1:20)
[2019-08-18] MEDS: amiodarone 200mg tablet PO SCH ×2 (13:19→21:58)
--- NOTE | 2019-08-18 18:30 | NUR ---
Patient in room [facility] 346. I have received report from TIMMY and had the opportunity to ask questions and assume patient care.
--- NOTE | 2019-08-18 18:30 | NUR ---
Patient in room [facility] 346. I have received report from TIMMY and had the opportunity to ask questions and assume patient care. ASSUMED CARE OF PT WITH RN STUDENT ULICES Chacon
[2019-08-18] MEDS: diltiazem 30mg tablet PO SCH (19:02)
[2019-08-18 20:10] VITALS: BP 106/60
[2019-08-18] MEDS: insulin glargine (Lantus) pen - multi-dose SQ SCH (21:00)
[2019-08-18] MEDS: atorvastatin 20mg tablet PO SCH (21:57)
[2019-08-18 23:15] VITALS: BP 103/73
[2019-08-19] MEDS: HYDROcodone/acetaminophen 5mg/325mg tablet PO PRN (02:11)
[2019-08-19] MEDS: diltiazem 30mg tablet PO SCH ×4 (02:12→20:11)
--- NOTE | 2019-08-19 03:34 | NUR ---
Student documentation: I have reviewed and agree with all interventions, assessments performed and documented by ULICES Branch Medication Administration: For this medication-pass time frame, all medication were reviewed, dispensed, administered and documented per hospital policy by ULICES Chacon
[2019-08-19] MEDS: albuterol 2.5 MG/3 ML nebule NEB SCH ×6 (04:06→22:45)
[2019-08-19] MEDS: HYDROcodone/acetaminophen 10/325mg tab PO PRN ×2 (05:45→20:15)
--- NOTE | 2019-08-19 06:23 | NUR ---
Problems reprioritized. Patient report given, questions answered & plan of care reviewed with YOHANA.
--- NOTE | 2019-08-19 06:36 | NUR ---
Received report from Clare FABIAN
[2019-08-19] MEDS: budesonide 0.5mg/2ml UD nebule IH SCH ×2 (07:02→19:03)
--- NOTE | 2019-08-19 07:04 | NUR ---
patient nausated no svn tx given Addendum: 08/19/19 at 0705 by Lacey Lizama RT Amended: Links added.
[2019-08-19] MEDS: ondansetron/PF 4mg/2ml inj IV PRN (07:06)
[2019-08-19] MEDS ORDERED: ondansetron 4mg rapidly disintigrating tab PO PRN (07:10)
[2019-08-19 07:30] VITALS: BP 95/64
[2019-08-19] MEDS: metoprolol succinate 25mg (24-HOUR) SR. Tablet PO SCH (07:57)
[2019-08-19] MEDS: sodium bicarbonate 650mg tablet PO SCH ×3 (08:10→20:11)
[2019-08-19] MEDS: loratadine 10mg tablet PO SCH (08:10)
[2019-08-19] MEDS: amiodarone 200mg tablet PO SCH ×2 (08:10→20:12)
[2019-08-19] MEDS: apixaban 5mg tablet PO SCH ×2 (08:10→20:11)
[2019-08-19] MEDS: nystatin 15 GM powder TP SCH ×3 (08:11→20:18)
[2019-08-19] MEDS ORDERED: heparin 1,000 units/ml 10ml inj IV ONE (08:45)
[2019-08-19] MEDS ORDERED: heparin 1,000unit/ml 10ml vial 10 ML IV ONE (08:45)
[2019-08-19] MEDS ORDERED: heparin 1,000 units/ml 10ml inj HE ONE (08:50)
[2019-08-19 13:08] VITALS: BP 97/59
--- NOTE | 2019-08-19 18:26 | NUR ---
Patient in room [facility] 346. I have received report from Alix FABIAN and had the opportunity to ask questions and assume patient care.
[2019-08-19 20:00] VITALS: BP 111/66
[2019-08-19] MEDS: atorvastatin 20mg tablet PO SCH (20:12)
[2019-08-19] MEDS: insulin glargine (Lantus) pen - multi-dose SQ SCH (21:00)
[2019-08-20] VITALS: BP 95/57
[2019-08-20] MEDS: diltiazem 30mg tablet PO SCH ×3 (02:27→13:34)
[2019-08-20] MEDS: albuterol 2.5 MG/3 ML nebule NEB SCH ×3 (02:59→11:41)
[2019-08-20] MEDS: HYDROcodone/acetaminophen 10/325mg tab PO PRN ×3 (03:56→13:35)
--- NOTE | 2019-08-20 06:05 | NUR ---
Patient in room [facility] 346. I have received report from MICHELLE FABIAN and had the opportunity to ask questions and assume patient care.
--- NOTE | 2019-08-20 06:14 | NUR ---
Problems reprioritized. Patient report given, questions answered & plan of care reviewed with Alban FABIAN.
[2019-08-20] MEDS: budesonide 0.5mg/2ml UD nebule IH SCH (07:12)
[2019-08-20 08:00] VITALS: BP 100/47
[2019-08-20] MEDS: amiodarone 200mg tablet PO SCH (08:00)
[2019-08-20] MEDS: metoprolol succinate 25mg (24-HOUR) SR. Tablet PO SCH (08:00)
[2019-08-20] MEDS: loratadine 10mg tablet PO SCH (08:17)
[2019-08-20] MEDS: sodium bicarbonate 650mg tablet PO SCH ×2 (08:18→13:34)
[2019-08-20] MEDS: nystatin 15 GM powder TP SCH ×2 (08:19→13:00)
[2019-08-20] MEDS ORDERED: epoetin 20,000 units/ml inj IV ONE (08:20)
[2019-08-20] MEDS ORDERED: heparin 1,000 units/ml 10ml inj HE ONE ×2 (08:25)
[2019-08-20 08:57] LABS: HEMATOCRIT 26.2 % (35.0-45.0); MEAN CORPUSCULAR HEMOGLOBIN 27.9 PG (27.0-31.0); MEAN CORPUSCULAR HGB CONC 30.6 g/dL (33.0-36.5); MEAN PLATELET VOLUME 6.9 FL (7.4-10.4); PLATELET COUNT 591 X10'3 (140-440); RED BLOOD COUNT 2.88 X10'6 (4.20-5.60); RED CELL DISTRIBUTION WIDTH 17.8 % (11.5-14.5); WHITE BLOOD COUNT 11.7 X10'3 (4.5-11.0)
[2019-08-20] MEDS: apixaban 5mg tablet PO SCH (09:11)
[2019-08-20 11:00] VITALS: BP 99/62
[2019-08-20 13:32] VITALS: BP 115/64
== END 2019-08-20 16:19 | DRG 133 ==
LOC: ER 08:39 → ED HOLD 10:33 → UNDOADMIN 10:33 → ED HOLD 11:26 → SUR 3N 16:55 → ED HOLD 16:55
PROVIDERS: ADMIT Internal Medicine; ATTEND Internal Medicine
PROC: 30233N1 Transfusion of Nonautologous Red Blood Cells into Peripheral Vein, Percutaneous Approach (ICD-10-PCS; 2019-08-13)
PROC: 0JH63XZ Insertion of Tunneled Vascular Access Device into Chest Subcutaneous Tissue and Fascia, Percutaneous Approach (ICD-10-PCS; principal; 2019-08-14)
PROC: 02H633Z Insertion of Infusion Device into Right Atrium, Percutaneous Approach (ICD-10-PCS; 2019-08-14)
PROC: B548ZZA Ultrasonography of Superior Vena Cava, Guidance (ICD-10-PCS; 2019-08-14)
PROC: 5A1D70Z Performance of Urinary Filtration, Intermittent, Less than 6 Hours Per Day (ICD-10-PCS; 2019-08-15)
PROC: 5A1D70Z Performance of Urinary Filtration, Intermittent, Less than 6 Hours Per Day (ICD-10-PCS; 2019-08-18)
PROC: 5A1D70Z Performance of Urinary Filtration, Intermittent, Less than 6 Hours Per Day (ICD-10-PCS; 2019-08-20)
DX: J96.21 Acute and chronic respiratory failure with hypoxia (principal); I26.99 Other pulmonary embolism without acute cor pulmonale; G93.41 Metabolic encephalopathy; N17.9 Acute kidney failure, unspecified; I13.0 Hypertensive heart and chronic kidney disease with heart failure and stage 1 through stage 4 chronic kidney disease, or unspecified chronic kidney disease; L03.115 Cellulitis of right lower limb; E87.5 Hyperkalemia; N18.4 Chronic kidney disease, stage 4 (severe); E10.22 Type 1 diabetes mellitus with diabetic chronic kidney disease; I50.9 Heart failure, unspecified; L03.116 Cellulitis of left lower limb; D64.9 Anemia, unspecified; E78.00 Pure hypercholesterolemia, unspecified; E78.5 Hyperlipidemia, unspecified; I48.91 Unspecified atrial fibrillation; J44.9 Chronic obstructive pulmonary disease, unspecified; J98.11 Atelectasis; N39.0 Urinary tract infection, site not specified; Z79.01 Long term (current) use of anticoagulants; Z87.891 Personal history of nicotine dependence; Z99.2 Dependence on renal dialysis; Z88.6 Allergy status to analgesic agent; Z91.010 Allergy to peanuts; Z91.018 Allergy to other foods
CPT/HCPCS: 36415; 36430; 36556; 71045; 76700; 76937; 77001; 78315; 80048; 80053; 81001; 82140; 82330; 82595; 82784; 82948; 83036; 83605; 83615; 83735; 83880; 84075; 84080; 84132; 84145; 84155; 84165; 84439; 84443; 84484; 84550; 85025; 85027; 85610; 85651; 85730; 86038; 86160; 86256; 86334; 86430; 86592; 86704; 86705; 86803; 86885; 86900; 86901; 86920; 87040; 87081; 87088; 87340; 93005; 94640; 94760; 96365; 96368; 97110; 97161; 97530; 99285; A9270; A9503; C1750; C1769; C1894; G0378; J0696; J1644; J1815; J1940; J2150; J2250; J2270; J2405; J2543; J3010; J3370; J7030; J7626; P9016; Q4081